=== PATIENT | female | born 1940 | race Caucasian/White ===

== ENCOUNTER 2017-12-31 13:28 | Observation (INO) ==
--- NOTE | 2017-12-31 13:34 | DR.DIZZY ---
HPI Time seen Time Seen by Provider: 12/31/17 13:34 HPI Comment HPI Comment: HISTORY BELOW. Complaint Chief Complaint Doctor Comments: PATIENT IN ED FROM THE [facility] BECAUSE THE STAFF NOTED SHE IS WEAK AND CONFUSE. HAS DEMENTIA BUT MORE CONFUSE. RIGHT ARM IS BRUISED AND SWOLLEN. HER SYMTOMS STARTED TODAY. Nurses Notes Reviewed Nurses Notes Review: Yes Source History Provided: Detention Mode of Arrival Mode of Arrival: Stretcher Timing Came on: Suddenly Duration Duration: Constant Duration: Hours Location of Weakness Weakness Location: Right and Arm Context Onset: At rest Stroke Symptoms: Weakness of limb Severity Severity: Abnormal activity level Modifying factors Worsens: Nothing Associated signs and symptoms Associated Signs and Symptoms: Weak and Other (AMS) PMH PMH Past Medical History: Alzheimers, Anxiety, Arthritis, CHF, Coronary Artery Disease, Dyslipidemia, Gout, Hypertension and Hypothyroidism Past Surgical History: Yes Surgical History: Unknown Family History Family Medical History: Cancer and Coronary Artery Disease Social History Do you use any recreational Drugs:: No ROS Review of Systems Constitutional: Weakness and Fatigue Eyes: No Symptoms Reported ENTM: No Symptoms Reported Respiratoy: Short of Breath Cardiovascular: No Symptoms Reported Gastrointestinal/Abdominal: Abdominal Pain Genitourinary: Hematuria; negative Bleeding Neurological: Weakness and Other (AMS.) Musculoskeletal: Rib(s) and Arm Integumentary: Bruises Hematologic/Lymphatic: Easy Bleeding and Easy Bruising Endocrine: negative Flushing Unable to Obtain Due To: Altered mental status PE Vital Signs Vitals: Temperature 98.9 F Pulse Rate [Right Brachial] 70 Pulse Rate 75 Respiratory Rate 18 Blood Pressure [Left Arm] 117/89 Blood Pressure [Right Arm] 119/58 Blood Pressure 131/60 O2 Sat by Pulse Oximetry 98 General Limitations: Altered Mental Status General Appearance: Other (CONFUSE.) Head Head Exam: Atraumatic Eyes Eye exam: PERRL Pupils: Regular, Round: Bilateral and Reactive: Bilateral Sclera/Conjunctival: Normal Inspection: Bilateral ENT ENT Exam: Normal External Ear Exam Neck Neck Exam: Trachea Midline Chest Chest Inspection: Symmetric Chest Wall Rise Respiratory Respiratory Exam: Bilateral: Rhonchi Cardiovascular Cardiovascular Exam: Regular Rate and Normal Rhythm Abdominal Exam Abdominal Exam: Normal Bowel Sounds and Soft Abdominal Tenderness: Diffuse and Moderate Rectal Rectal Exam: Deferred Extremeties Extremities Exam: Tenderness (SWELLING RT ARM WITH TENDERNESS,) Back Back Exam: negative Rashes Neurologic Neurological Exam: negative Oriented X3 and Motor Sensory Deficit Patient Oriented To: negative Person, Place and Time Cranial Nerve Exam: Gag reflex (XI): Normal Skin Skin Exam: Erythema MDM Differential Diagnosis Differential Diagnosis: Anemia, CVA, Dehydration, Dysrhythmia, Electrolyte disorder, Hypoglycemia and Myocardial infarction COURSE Treatment Treatment: SEE ORDERS. ROR Labs Reviewed Laboratory Results Reviewed?: Yes Result Diagrams: 01/02/18 04:29 01/02/18 04:29 Laboratory: 12/31/17 15:40 Blood Blood Culture - Final 12/31/17 15:28 Blood Blood Culture - Final WBC 8.0 X10^3/uL (3.6-10.0) 01/02/18 04:29 RBC 3.14 X10^6/uL (3.5-5.4) L 01/02/18 04:29 Hgb 10.1 g/dL (12.0-16.0) L 01/02/18 04:29 Hct 29.9 % (36.0-47.0) L 01/02/18 04:29 MCV 95.2 fL (80.0-100.0) 01/02/18 04:29 MCH 32.2 pg (27.0-34.0) 01/02/18 04:29 MCHC 33.9 g/dL (33.0-35.0) 01/02/18 04:29 RDW 14.1 % (11.6-16.5) 01/02/18 04:29 Plt Count 192 X10^3/uL (150.0-450.0) 01/02/18 04:29 MPV 7.4 fL (7.4-11.0) 01/02/18 04:29 Neut % (Auto) 55.1 % (42.0-75.0) 01/02/18 04:29 Lymph % (Auto) 35.1 % (21.0-51.0) 01/02/18 04:29 [place] % (Auto) 7.2 % (0.0-13.0) 01/02/18 04:29 Eos % (Auto) 2.1 % (0.9-2.9) 01/02/18 04:29 Baso % (Auto) 0.5 % (0.2-1.0) 01/02/18 04:29 Neut # (Auto) 4.4 x10^3/uL (2.2-4.8) 01/02/18 04:29 Lymph # (Auto) 2.8 X10^3/uL (1.3-2.9) 01/02/18 04:29 [place] # (Auto) 0.6 x10^3/uL (0.3-0.8) 01/02/18 04:29 Eos # (Auto) 0.2 x10^3/uL (0.0-0.2) 01/02/18 04:29 Baso # (Auto) 0.0 X10^3/uL (0.0-0.1) 01/02/18 04:29 Absolute Nucleated RBC 0.0 /100WBC 01/02/18 04:29 INR Target Range - 12/31/17 15:40 INR 1.07 (0.8-1.3) 12/31/17 15:40 APTT 29.1 SECONDS (22.9-36.5) 12/31/17 15:40 PTT Comment - 12/31/17 15:40 Sodium 145 mmol/L (136-145) 01/02/18 04:29 Corrected Sodium TNP 01/02/18 04:29 Potassium 4.9 mmol/L (3.5-5.1) 01/02/18 04:29 Chloride 110 mmol/L (98-107) H 01/02/18 04:29 Carbon Dioxide 24.4 mmol/L (21-32) 01/02/18 04:29 BUN 34 mg/dL (7-18) H 01/02/18 04:29 Creatinine 1.46 mg/dL (0.55-1.02) H 01/02/18 04:29 Est GFR (MDRD) Af Amer 45 (>60) L 01/02/18 04:29 Est GFR (MDRD) Non-Af 37 (>60) L 01/02/18 04:29 Glucose 99 mg/dL (65-99) 01/02/18 04:29 Lactic Acid 1.0 mmol/L (0.4-2.0) 12/31/17 15:28 Calcium 8.6 mg/dL (8.5-10.1) 01/02/18 04:29 Corrected Calcium 9.4 mg/dL (8.5-10.1) 01/02/18 04:29 Magnesium 1.9 mg/dL (1.7-2.9) 01/01/18 04:36 Total Bilirubin 0.50 mg/dL (0.2-1.0) 01/02/18 04:29 AST 11 Units/L (15-37) L 01/02/18 04:29 ALT 15 Units/L (12-78) 01/02/18 04:29 Alkaline Phosphatase 106 Units/L (46-116) 01/02/18 04:29 Creatine Kinase 24 Units/L (26-192) L 01/01/18 04:36 CK-MB (CK-2) < 1.0 ng/mL (0-4.0) 01/01/18 04:36 CK/CKMB % Calc 4.2 % (<4) 01/01/18 04:36 Troponin I < 0.02 ng/mL (0-1.5) 01/01/18 04:36 Total Protein 6.1 g/dL (6.4-8.2) L 01/02/18 04:29 Albumin 3.0 g/dL (3.4-5.0) L 01/02/18 04:29 Globulin 3.1 g/dL (2.5-4.5) 01/02/18 04:29 Albumin/Globulin Ratio 1.0 Ratio (1.1-2.1) L 01/02/18 04:29 Triglycerides 98 mg/dL (0-150) 01/01/18 04:36 Cholesterol 120 mg/dL (0-200) 01/01/18 04:36 LDL Cholesterol, Calc 60 mg/dL (0-100) 01/01/18 04:36 HDL Cholesterol 40 mg/dL (40-60) 01/01/18 04:36 Cholesterol/HDL Ratio 3.0 (0.0-5.0) 01/01/18 04:36 Amylase 53 Units/L (25-115) 12/31/17 15:28 Lipase 123 Units/L (73-393) 12/31/17 15:28 Specimen Type Random urine 12/31/17 20:45 Urine Color Yellow (YELLOW) 12/31/17 20:45 Urine Appearance Clear (CLEAR) 12/31/17 20:45 Urine pH 5.0 (5.0 - 8.0) 12/31/17 20:45 Ur Specific [place] 1.010 (1.000-1.030) 12/31/17 20:45 Urine Protein Negative (NEGATIVE) 12/31/17 20:45 Urine Glucose (UA) Negative (NEGATIVE) 12/31/17 20:45 Urine Ketones Negative (NEGATIVE) 12/31/17 20:45 Urine Occult Blood Negative (NEGATIVE) 12/31/17 20:45 Urine Nitrite Negative (NEGATIVE) 12/31/17 20:45 Urine Bilirubin Negative (NEGATIVE) 12/31/17 20:45 Urine Urobilinogen Normal (NORMAL) 12/31/17 20:45 Ur Leukocyte Esterase Negative (NEGATIVE) 12/31/17 20:45 Other Results Comments: ADMITTED. Instructions Instructions: Hypertension, [id number] Heart Failure Weakness Forms: Patient Portal
[2017-12-31 13:54] VITALS: BMI 28.4
--- NOTE | 2017-12-31 15:11 | CT ---
Indication: Mental status changes Exam: CT head without contrast. Technique: Routine transaxial images were obtained through the brain without contrast. Comparison: 12/18/2017. Findings: The ventricles are mildly enlarged with diffuse mild prominence of the cortical sulci which is unchanged. There is moderate periventricular low density bilaterally which is unchanged. 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 No intracranial hemorrhage or edema is seen. There is no extra-axial fluid collection or mass. The midline structures are unremarka ble. The bones are intact. Impression: Diffuse mild atrophy and moderate chronic microischemic changes throughout the deep white matter which is unchanged with no acute abnormality seen. Reported By:
--- NOTE | 2017-12-31 15:16 | CT ---
HISTORY: Abdominal tenderness, unresponsive Study: CT abdomen and pelvis without contrast Comparison: None Technique: Multiple axial images were obtained of the abdomen pelvis beginning at the lung bases and extending t o the level of the ischial tuberosities without the administration of IV contrast. Reformatted lloyd l and sagittal planes were produced as well. Findings: The lung bases are clear. Coronary calcifications are noted. The liver, pancreas, spleen, and bilateral adrenal glands are unremarkable. There is bilateral renal atrophy. The kidneys are otherwise unremarkable. No free fluid or extraluminal free air is identified within the abdomen or pelvis. The gallbladder is grossly unremarkable in its CT appearance. There is no pathologic lymphadenopathy or suspicious mesenteric stranding. Very mild scattered diverticulosis of the colon is noted without evidence of acute diverticulitis. There are no dilated loops of bowel or bowel wall thickening. There is no evidence of acute appendicitis. The urinary bladder is grossly unremarkable. The bony structures are intact. Multilevel thoracolumbar spondylosis is noted. There ap pears to be bilateral L5 spondylolysis with advanced facet arthropathy. IMPRESSION: 1. No acute intra-abdominal abnormality evident. 2. Uncomplicated very mild diverticulosis. 3. Bilateral L5 spondylolysis and advanced facet arthropathy. Reported By:
[2017-12-31 15:52] LABS: BASOPHILS % (AUTO) 0.5 % (0.2-1.0); EOSINOPHILS # (AUTO) 0.1 x10^3/uL (0.0-0.2); EOSINOPHILS % (AUTO) 1.7 % (0.9-2.9); HEMATOCRIT 32.6 % (36.0-47.0); LYMPHOCYTES # (AUTO) 1.8 X10^3/uL (1.3-2.9); LYMPHOCYTES % (AUTO) 26.1 % (21.0-51.0); MEAN CORPUSCULAR HEMOGLOBIN 31.8 pg (27.0-34.0); MEAN CORPUSCULAR HGB CONC 33.6 g/dL (33.0-35.0); MEAN CORPUSCULAR VOLUME 94.5 fL (80.0-100.0); MEAN PLATELET VOLUME 7.1 fL (7.4-11.0); MONOCYTES # (AUTO) 0.5 x10^3/uL (0.3-0.8); MONOCYTES % (AUTO) 7.3 % (0.0-13.0); NEUTROPHILS # (AUTO) 4.5 x10^3/uL (2.2-4.8); NEUTROPHILS % (AUTO) 64.4 % (42.0-75.0); PLATELET COUNT 204 X10^3/uL (150.0-450.0); RED BLOOD COUNT 3.45 X10^6/uL (3.5-5.4); RED CELL DISTRIBUTION WIDTH 14.1 % (11.6-16.5); WHITE BLOOD COUNT 6.9 X10^3/uL (3.6-10.0)
[2017-12-31 16:15] LABS: BLOOD UREA NITROGEN 26 mg/dL (7-18); CHLORIDE 106 mmol/L (98-107); CREATININE 1.19 mg/dL (0.55-1.02); SODIUM 141 mmol/L (136-145); TROPONIN I < 0.02 ng/mL (0-1.5); eGFR NON BLACK RACES 47 (>60)
[2017-12-31 16:18] LABS: ALANINE AMINOTRANSFERASE 18 Units/L (12-78); ALBUMIN 3.5 g/dL (3.4-5.0); ALKALINE PHOSPHATASE 120 Units/L (46-116); AMYLASE 53 Units/L (25-115); ASPARTATE AMINO TRANSFERASE 12 Units/L (15-37); CKMB % 3.7 % (<4); CREATINE KINASE 27 Units/L (26-192); CREATINE KINASE MB < 1.0 ng/mL (0-4.0); LIPASE 123 Units/L (73-393); TOTAL PROTEIN 6.9 g/dL (6.4-8.2)
[2017-12-31 20:55] LABS: BILIRUBIN,URINE NEGATIVE (NEGATIVE); BLOOD/HEMOGLOBIN,URINE NEGATIVE (NEGATIVE); GLUCOSE, URINE NEGATIVE (NEGATIVE); KETONES,URINE NEGATIVE (NEGATIVE); LEUKOCYTE ESTERASE ,URINE NEGATIVE (NEGATIVE); NITRITES,URINE NEGATIVE (NEGATIVE); PROTEIN,URINE NEGATIVE (NEGATIVE); UROBILINOGEN,URINE NORMAL (NORMAL)
[2017-12-31 20:57] LABS: APPEARANCE,URINE CLEAR (CLEAR); COLOR,URINE YELLOW (YELLOW)
[2017-12-31] MEDS: NS 1000 ML 1,000 ML IV SCH (23:11)
[2017-12-31] MEDS: XANAX PO PRN (23:48)
[2018-01-01 00:07] LABS: CKMB % 3.5 % (<4); CREATINE KINASE 29 Units/L (26-192); CREATINE KINASE MB < 1.0 ng/mL (0-4.0); TROPONIN I < 0.02 ng/mL (0-1.5)
[2018-01-01 05:07] LABS: BASOPHILS % (AUTO) 0.4 % (0.2-1.0); EOSINOPHILS # (AUTO) 0.2 x10^3/uL (0.0-0.2); EOSINOPHILS % (AUTO) 2.5 % (0.9-2.9); HEMATOCRIT 29.5 % (36.0-47.0); HEMOGLOBIN 9.9 g/dL (12.0-16.0); LYMPHOCYTES # (AUTO) 2.4 X10^3/uL (1.3-2.9); LYMPHOCYTES % (AUTO) 32.7 % (21.0-51.0); MEAN CORPUSCULAR HEMOGLOBIN 31.3 pg (27.0-34.0); MEAN CORPUSCULAR HGB CONC 33.7 g/dL (33.0-35.0); MEAN CORPUSCULAR VOLUME 92.8 fL (80.0-100.0); MEAN PLATELET VOLUME 7.2 fL (7.4-11.0); MONOCYTES # (AUTO) 0.5 x10^3/uL (0.3-0.8); MONOCYTES % (AUTO) 7.1 % (0.0-13.0); NEUTROPHILS # (AUTO) 4.1 x10^3/uL (2.2-4.8); NEUTROPHILS % (AUTO) 57.3 % (42.0-75.0); PLATELET COUNT 192 X10^3/uL (150.0-450.0); RED BLOOD COUNT 3.17 X10^6/uL (3.5-5.4); RED CELL DISTRIBUTION WIDTH 14.1 % (11.6-16.5); WHITE BLOOD COUNT 7.2 X10^3/uL (3.6-10.0)
[2018-01-01 05:08] LABS: ALANINE AMINOTRANSFERASE 16 Units/L (12-78); ALBUMIN 3.1 g/dL (3.4-5.0); ALKALINE PHOSPHATASE 108 Units/L (46-116); ASPARTATE AMINO TRANSFERASE 9 Units/L (15-37); BLOOD UREA NITROGEN 26 mg/dL (7-18); CALCIUM 8.8 mg/dL (8.5-10.1); CARBON DIOXIDE 27.2 mmol/L (21-32); CHLORIDE 107 mmol/L (98-107); CHOLESTEROL 120 mg/dL (0-200); COR CA(FOR HYPOALB) 9.5 mg/dL (8.5-10.1); CREATININE 1.27 mg/dL (0.55-1.02); HDL CHOLESTEROL 40 mg/dL (40-60); MAGNESIUM 1.9 mg/dL (1.7-2.9); SODIUM 142 mmol/L (136-145); TOTAL PROTEIN 6.3 g/dL (6.4-8.2); TRIGLYCERIDES 98 mg/dL (0-150); eGFR NON BLACK RACES 43 (>60)
[2018-01-01 05:22] LABS: CKMB % 4.2 % (<4); CREATINE KINASE 24 Units/L (26-192); CREATINE KINASE MB < 1.0 ng/mL (0-4.0); TROPONIN I < 0.02 ng/mL (0-1.5)
[2018-01-01] MEDS ORDERED: [UNRECOGNIZED DRUG - REMARK] PO SCH (09:00)
[2018-01-01] MEDS ORDERED: MIRALAX POWDER (255 GRAMS BTL) PO SCH (09:00)
[2018-01-01] MEDS ORDERED: MULTIVITAMIN MIN IRON FA VIT K PO SCH (09:00)
[2018-01-01] MEDS ORDERED: [UNRECOGNIZED DRUG - OTHER] PO SCH (09:00)
--- NOTE | 2018-01-01 11:34 | DR.H&P ---
H&P - History & Physical for Day of: H&P Date: 01/01/18 - Chief Complaint Chief Complaint: WEAKNESS, ALTERED MENTAL STATUS - History of Present Illness History of Present Illness: IS A 77 YEAR OLD PATIENT OF OURS WHO IS A RESIDENT OF [facility]. SHE PRESENTED TO THE EMERGENCY ROOM WITH STAFF REPORTING THAT PATIENT ISNT ACTING LIKE HERSELF. PATIENT DOES HAVE A PAST MEDICAL HISTORY OF DEMENTIA, HOWEVER, STAFF REPORTS THAT SHE HAS BEEN MORE CONFUSED, WEAK, AND MORE DROWSY THAN USUAL. ON EXAMINATION, PATIENT NOTED WITH TENDERNESS ON PALPATION TO THE LOWER ABDOMEN. ON ARRIVAL, VITALS WERE 99.0-75-18-98%RA-131/60. LABS WERE OBTAINED. ABNORMAL LAB VALUES INCLUDE THE FOLLOWING: RBC 3.45, HGB 11.0, HCT 32.6, BUN 26, CREATININE 1.19, GLUCOSE 101, AST 12, ALK PHOS 120. CARDIAC ENZYMES WITHIN NORMAL LIMITS. AN ABDOMEN/PELVIS CT WAS OBTAINED AND REVEALED: No acute intra-abdominal abnormality evident.Uncomplicated very mild diverticulosis. Bilateral L5 spondylolysis and advanced facet arthropathy. A BRAIN CT WAS OBTAINED AND REVEALED: Diffuse mild atrophy and moderate chronic microischemic changes throughout the deep white matter which is unchanged with no acute abnormality seen. EKG REVEALED: JUNCTIONAL RHYTHM, LEFT BUNDLE BRANCH BLOCK, HR 63. PATIENT WAS ADMITTED TO THE HOSPITAL FOR FURTHER EVALUATION AND TREATMENT OF DEHYDRATION, GENERALIZED WEAKNESS, AND ALTERED MENTAL STATUS. SHE WAS STARTED ON NORMAL SALINE AND HOME MEDICATIONS WERE RESUMED WITH THE EXCEPTION OF THE RISPERDAL AND MELATONIN. WE PLAN TO FOLLOW UP WITH AM LABS AND CONTINUE TO MONITOR PATIENT. - Past Medical History Past Medical History: Coronary Artery Disease, Hypertension, Dyslipidemia, Alzheimers, Anxiety, Hypothyroidism, Arthritis, Gout, CHF - Past Surgical History Surgical History: Unknown - Family History Family Medical History: Cancer, Coronary Artery Disease - Social History Does patient currently use any type of tobacco product: No Have you used tobacco products in the last 12 months: No Type of Tobacco Use: None Does any household member use tobacco: No Alcohol Use: None Drug Use: None - Medications Home Medications: fluoxetine [From Prozac] Allergy (Verified 09/08/17 07:59) CONTINUE taking the following medications escitalopram oxalate [Lexapro] 10 mg PO DAILYHS 12/31/17 [History] fesoterodine [Toviaz] 4 mg PO DAILY 12/31/17 [History] hydrocodone-acetaminophen [Lorcet (hydrocodone)] 5 - 325 mg PO PRN PRN 12/31/17 [History] levocetirizine [Allergy Relief (levocetirizin)] 5 mg PO DAILY 12/31/17 [History] levothyroxine [Synthroid] 125 mcg/day PO DAILYAC 12/31/17 [History] lisinopril-hydrochlorothiazide 1 mg PO DAILY 12/31/17 [History] meclizine [Medi-Meclizine] 25 mg DAILY 12/31/17 [History] melatonin 10 mg PO HS 12/31/17 [History] memantine-donepezil [Namzaric] 10 mg PO DAILY 12/31/17 [History] jhenymyhnhez-kke-dcat-FA-vit K [Multi-Day Plus Minerals] 1 tab PO DAILY 12/31/17 [History] naproxen 500 mg PO BID 12/31/17 [History] polyethylene glycol 3350 [Miralax] 17 g PO DAILY 12/31/17 [History] risperidone [Risperdal] 1 mg PO DAILYHS 12/31/17 [History] simvastatin [Zocor] 20 mg PO DAILYHS 12/31/17 [History] trazodone 50 mg PO DAILYHS 12/31/17 [History] - Review of Systems Constitutional: Weakness, Other (CONFUSION ) Eyes: No Symptoms Reported ENT: No Symptoms Reported Respiratory: No Symptoms Reported Cardiovascular: No Symptoms Reported Gastrointestinal: Abdominal Pain Genitourinary: No Symptoms Reported Musculoskeletal: No Symptoms Reported Skin: No Symptoms Reported Neurological: Weakness - Physical Exam Vital Signs: Temperature 98.6 F Pulse Rate [Right Brachial] 60 Pulse Rate 75 Respiratory Rate 20 Blood Pressure [Right Arm] 115/53 Blood Pressure 131/60 O2 Sat by Pulse Oximetry 95 Oriented: Not Oriented Eyes: Normal Ear: Normal Nose: Normal Throat: Normal Respiratory: Diminished Throughout Cardiovascular: Normal. negative: S3, S4, Murmur : Normal Auscultation: Bowel Sounds: Normal Palpation: Normal Tenderness: Suprapubic, Mild. negative: Rebound, Guarding, Rigidity Skin: Normal Musculoskeletal: Normal Psychiatric: Other (CONFUSION ) Mood Description: Calm Affect: Normal Speech Pattern: Unclear - Assessment/Plan (1) Dehydration Status: Acute Plan: ADMIT, NORMAL SALINE, CONTINUE TO MONITOR (2) Altered mental status Qualifiers: Altered mental status type: transient alteration of awareness Qualified Code(s): R40.4 - Transient alteration of awareness Status: Acute Plan: CONTINUE TO MONITOR (3) Generalized weakness Status: Acute Plan: CONTINUE TO MONITOR - Allergies Allergies/Adverse Reactions: Allergies Allergy/AdvReac Type Severity Reaction Status Date / Time [facility] Allergy Verified 09/08/17 07:59
[2018-01-01] MEDS: ANTIVERT TAB 25 MG PO SCH (13:01)
[2018-01-01] MEDS: TAB-A-VITE PO SCH (13:01)
[2018-01-01] MEDS: NAPROSYN PO SCH ×2 (13:01→20:32)
[2018-01-01] MEDS: FESOTERODINE 4 MG PO SCH (13:02)
[2018-01-01] MEDS: MEMANTINE DONEPEZIL PO SCH (13:02)
[2018-01-01] MEDS: NS 1000 ML 1,000 ML IV SCH ×2 (13:02→22:43)
--- NOTE | 2018-01-01 15:57 | PCM.PROG ---
Progress Note - Progress Note for Day of Date of Exam: 01/01/18 - Subjective Subjective: WAS ADMITTED FOR DEHYDRATION, GENERALIZED WEAKNESS, AND ALTERED MENTAL STATUS LAST NIGHT. TODAY, SHE IS LYING IN BED WITH EYES CLOSED ON MORNING ROUNDS. SHE IS DIFFICULT TO AROUSE THIS MORNING. SHE DOES MOAN TO PAINFUL STIMULI. PATIENTS SISTER REPORTS THAT SHE WAS NOTED WITH INCREASED AGITATION AFTER ADMISSION. SHE REPORTS THAT SHE TRIED TO GIVE PATIENT SOMETHING TO DRINK THIS MORNING AND THAT SHE HAD A DIFFICULT TIME TAKING IN FLUIDS WITHOUT COUGHING AND APPEARING TO GET CHOKED. HER VITALS TODAY ARE 98.6-60-20-95%-115/53. LABS WERE OBTAINED. ABNORMAL LAB VALUES INCLUDE THE FOLLOWING: RBC 3.17, HGB 9.9, HCT 29.5, BUN 26, CREATININE 1.27, AST 9, CREATINE KINASE 24, TOTAL PROTEIN 6.3, ALBUMIN 3.1. CARDIAC ENZYMES HAVE BEEN WITHIN NORMAL LIMITS. NO CHANGES NOTED TO EKG. TODAY, WE WILL HAVE SPEECH THERAPY EVALUATE PATIENT. OTHERWISE, WE WILL CONTINUE WITH IV FLUIDS AND CURRENT PLAN OF CARE. WE PLAN TO FOLLOW UP WITH AM LABS AND CONTINUE TO MONITOR PATIENT. - Past Medical Family Social History Past Med/Fam/Surg Hx: No changes since H&P Allergies: Allergies fluoxetine [From Prozac] Allergy (Verified 09/08/17 07:59) - Review of Systems ROS: No change since H&P - Vital Signs and I&O's Vital Signs: Temperature 98.4 F Pulse Rate [Right Brachial] 72 Pulse Rate 75 Respiratory Rate 20 Blood Pressure [Right Arm] 161/68 Blood Pressure 131/60 O2 Sat by Pulse Oximetry 97 Intake and Output: Intake & Output 12/30/17 12/31/17 01/01/18 01/02/18 11:59 11:59 11:59 11:59 Intake Total 270 / 270 120 / 120 Output Total 300 / 300 Balance 270 / 270 -180 / -180 - Physical Exam Oriented: Not Oriented Eyes: Normal Ear: Normal Nose: Normal Throat: Normal Cardiovascular: Normal. negative: S3, S4, Murmur : Normal Auscultation: Bowel Sounds: Normal Palpation: Normal Tenderness: Suprapubic, Mild. negative: Rebound, Guarding, Rigidity Skin: Normal Musculoskeletal: Normal Psychiatric: Other (CONFUSION ) Mood Description: Calm Affect: Normal Speech Pattern: Unclear - Laboratory and Diagnostics Result Diagrams: 01/01/18 04:36 01/01/18 04:36 Labs: Laboratory WBC 7.2 X10^3/uL (3.6-10.0) 01/01/18 04:36 RBC 3.17 X10^6/uL (3.5-5.4) L 01/01/18 04:36 Hgb 9.9 g/dL (12.0-16.0) L 01/01/18 04:36 Hct 29.5 % (36.0-47.0) L 01/01/18 04:36 MCV 92.8 fL (80.0-100.0) 01/01/18 04:36 MCH 31.3 pg (27.0-34.0) 01/01/18 04:36 MCHC 33.7 g/dL (33.0-35.0) 01/01/18 04:36 RDW 14.1 % (11.6-16.5) 01/01/18 04:36 Plt Count 192 X10^3/uL (150.0-450.0) 01/01/18 04:36 MPV 7.2 fL (7.4-11.0) L 01/01/18 04:36 Neut % (Auto) 57.3 % (42.0-75.0) 01/01/18 04:36 Lymph % (Auto) 32.7 % (21.0-51.0) 01/01/18 04:36 [place] % (Auto) 7.1 % (0.0-13.0) 01/01/18 04:36 Eos % (Auto) 2.5 % (0.9-2.9) 01/01/18 04:36 Baso % (Auto) 0.4 % (0.2-1.0) 01/01/18 04:36 Neut # (Auto) 4.1 x10^3/uL (2.2-4.8) 01/01/18 04:36 Lymph # (Auto) 2.4 X10^3/uL (1.3-2.9) 01/01/18 04:36 [place] # (Auto) 0.5 x10^3/uL (0.3-0.8) 01/01/18 04:36 Eos # (Auto) 0.2 x10^3/uL (0.0-0.2) 01/01/18 04:36 Baso # (Auto) 0.0 X10^3/uL (0.0-0.1) 01/01/18 04:36 Absolute Nucleated RBC 0.0 /100WBC 01/01/18 04:36 INR Target Range - 12/31/17 15:40 INR 1.07 (0.8-1.3) 12/31/17 15:40 APTT 29.1 SECONDS (22.9-36.5) 12/31/17 15:40 PTT Comment - 12/31/17 15:40 Sodium 142 mmol/L (136-145) 01/01/18 04:36 Corrected Sodium TNP 01/01/18 04:36 Potassium 4.1 mmol/L (3.5-5.1) 01/01/18 04:36 Chloride 107 mmol/L (98-107) 01/01/18 04:36 Carbon Dioxide 27.2 mmol/L (21-32) 01/01/18 04:36 BUN 26 mg/dL (7-18) H 01/01/18 04:36 Creatinine 1.27 mg/dL (0.55-1.02) H 01/01/18 04:36 Est GFR (MDRD) Af Amer 52 (>60) L 01/01/18 04:36 Est GFR (MDRD) Non-Af 43 (>60) L 01/01/18 04:36 Glucose 99 mg/dL (65-99) 01/01/18 04:36 Lactic Acid 1.0 mmol/L (0.4-2.0) 12/31/17 15:28 Calcium 8.8 mg/dL (8.5-10.1) 01/01/18 04:36 Corrected Calcium 9.5 mg/dL (8.5-10.1) 01/01/18 04:36 Magnesium 1.9 mg/dL (1.7-2.9) 01/01/18 04:36 Total Bilirubin 0.40 mg/dL (0.2-1.0) 01/01/18 04:36 AST 9 Units/L (15-37) L 01/01/18 04:36 ALT 16 Units/L (12-78) 01/01/18 04:36 Alkaline Phosphatase 108 Units/L (46-116) 01/01/18 04:36 Creatine Kinase 24 Units/L (26-192) L 01/01/18 04:36 CK-MB (CK-2) < 1.0 ng/mL (0-4.0) 01/01/18 04:36 CK/CKMB % Calc 4.2 % (<4) 01/01/18 04:36 Troponin I < 0.02 ng/mL (0-1.5) 01/01/18 04:36 Total Protein 6.3 g/dL (6.4-8.2) L 01/01/18 04:36 Albumin 3.1 g/dL (3.4-5.0) L 01/01/18 04:36 Globulin 3.2 g/dL (2.5-4.5) 01/01/18 04:36 Albumin/Globulin Ratio 1.0 Ratio (1.1-2.1) L 01/01/18 04:36 Triglycerides 98 mg/dL (0-150) 01/01/18 04:36 Cholesterol 120 mg/dL (0-200) 01/01/18 04:36 LDL Cholesterol, Calc 60 mg/dL (0-100) 01/01/18 04:36 HDL Cholesterol 40 mg/dL (40-60) 01/01/18 04:36 Cholesterol/HDL Ratio 3.0 (0.0-5.0) 01/01/18 04:36 Amylase 53 Units/L (25-115) 12/31/17 15:28 Lipase 123 Units/L (73-393) 12/31/17 15:28 Specimen Type Random urine 12/31/17 20:45 Urine Color Yellow (YELLOW) 12/31/17 20:45 Urine Appearance Clear (CLEAR) 12/31/17 20:45 Urine pH 5.0 (5.0 - 8.0) 12/31/17 20:45 Ur Specific [place] 1.010 (1.000-1.030) 12/31/17 20:45 Urine Protein Negative (NEGATIVE) 12/31/17 20:45 Urine Glucose (UA) Negative (NEGATIVE) 12/31/17 20:45 Urine Ketones Negative (NEGATIVE) 12/31/17 20:45 Urine Occult Blood Negative (NEGATIVE) 12/31/17 20:45 Urine Nitrite Negative (NEGATIVE) 12/31/17 20:45 Urine Bilirubin Negative (NEGATIVE) 12/31/17 20:45 Urine Urobilinogen Normal (NORMAL) 12/31/17 20:45 Ur Leukocyte Esterase Negative (NEGATIVE) 12/31/17 20:45 - Plan (1) Dehydration Status: Acute Plan: NORMAL SALINE @ 75ML/HR, CONTINUE TO MONITOR (2) Altered mental status Status: Acute Qualifiers: Altered mental status type: transient alteration of awareness Qualified Code(s): R40.4 - Transient alteration of awareness Plan: CONTINUE TO MONITOR (3) Generalized weakness Status: Acute Plan: CONTINUE TO MONITOR
[2018-01-01] MEDS: XANAX PO PRN (16:21)
[2018-01-01] MEDS ORDERED: SYNTHROID 125 mcg TAB PO SCH (16:30)
[2018-01-01] MEDS ORDERED: LEXAPRO ONE (19:55)
[2018-01-01] MEDS ORDERED: DESYREL PO SCH (21:00)
[2018-01-01] MEDS ORDERED: PATIENT'S HOME MEDICATION (Melatonin [Melatonin] 10 MG) PO SCH (21:00)
[2018-01-01] MEDS ORDERED: ZOCOR TAB 20 MG PO SCH (21:00)
[2018-01-01] MEDS ORDERED: LEXAPRO PO SCH (21:00)
[2018-01-01] MEDS ORDERED: RisperDAL TAB 1 MG PO SCH (21:00)
[2018-01-01] MEDS ORDERED: MIRALAX POWDER (1 DOSE 17 G) PO SCH (21:00)
[2018-01-01] MEDS: NYSTATIN POWDER TOP SCH (22:43)
[2018-01-02] MEDS: NS 1000 ML 1,000 ML IV SCH ×2 (01:16→12:00)
[2018-01-02 05:16] LABS: BASOPHILS % (AUTO) 0.5 % (0.2-1.0); EOSINOPHILS # (AUTO) 0.2 x10^3/uL (0.0-0.2); EOSINOPHILS % (AUTO) 2.1 % (0.9-2.9); HEMATOCRIT 29.9 % (36.0-47.0); HEMOGLOBIN 10.1 g/dL (12.0-16.0); LYMPHOCYTES # (AUTO) 2.8 X10^3/uL (1.3-2.9); LYMPHOCYTES % (AUTO) 35.1 % (21.0-51.0); MEAN CORPUSCULAR HEMOGLOBIN 32.2 pg (27.0-34.0); MEAN CORPUSCULAR HGB CONC 33.9 g/dL (33.0-35.0); MEAN CORPUSCULAR VOLUME 95.2 fL (80.0-100.0); MEAN PLATELET VOLUME 7.4 fL (7.4-11.0); MONOCYTES # (AUTO) 0.6 x10^3/uL (0.3-0.8); MONOCYTES % (AUTO) 7.2 % (0.0-13.0); NEUTROPHILS # (AUTO) 4.4 x10^3/uL (2.2-4.8); NEUTROPHILS % (AUTO) 55.1 % (42.0-75.0); PLATELET COUNT 192 X10^3/uL (150.0-450.0); RED BLOOD COUNT 3.14 X10^6/uL (3.5-5.4); RED CELL DISTRIBUTION WIDTH 14.1 % (11.6-16.5)
[2018-01-02 05:23] LABS: ALANINE AMINOTRANSFERASE 15 Units/L (12-78); ALKALINE PHOSPHATASE 106 Units/L (46-116); ASPARTATE AMINO TRANSFERASE 11 Units/L (15-37); BLOOD UREA NITROGEN 34 mg/dL (7-18); CALCIUM 8.6 mg/dL (8.5-10.1); CARBON DIOXIDE 24.4 mmol/L (21-32); CHLORIDE 110 mmol/L (98-107); COR CA(FOR HYPOALB) 9.4 mg/dL (8.5-10.1); CREATININE 1.46 mg/dL (0.55-1.02); SODIUM 145 mmol/L (136-145); TOTAL PROTEIN 6.1 g/dL (6.4-8.2); eGFR NON BLACK RACES 37 (>60)
[2018-01-02] MEDS: ANTIVERT TAB 25 MG PO SCH (08:43)
[2018-01-02] MEDS: NAPROSYN PO SCH (08:43)
[2018-01-02] MEDS: TAB-A-VITE PO SCH (08:44)
[2018-01-02] MEDS: NYSTATIN POWDER TOP SCH (08:50)
[2018-01-02] MEDS: FESOTERODINE 4 MG PO SCH (08:54)
[2018-01-02] MEDS: MEMANTINE DONEPEZIL PO SCH (08:55)
[2018-01-02] MEDS ORDERED: ZyrTEC TAB 10 MG PO SCH (09:00)
[2018-01-02] MEDS ORDERED: XANAX PO PRN (09:59)
[2018-01-02] MEDS ORDERED: PROTONIX TAB 40 MG PO SCH (10:00)
[2018-01-02] MEDS ORDERED: PEPCID TAB 20 MG PO SCH (10:00)
[2018-01-02] MEDS: BENTYL CAP 10 MG PO SCH ×2 (10:51→13:47)
[2018-01-02] MEDS: LEVSIN/MAALOX/LIDOC VISC PO SCH ×2 (10:52→13:47)
--- NOTE | 2018-01-02 11:36 | RAD ---
HISTORY: Fall several days ago with pain Study: 2 views of the right forearm. Comparison: None Findings: No acute cortical disruption or dislocation can be identified. The radius and ulna are unremarkable. No significant soft tissue swelling or injury can be seen. IMPRESSION: 1. No acute abnormality of the right forearm. Reported By:
--- NOTE | 2018-01-02 11:40 | RAD ---
HISTORY: Fall with right arm pain Study: 2 views of the right humerus. Comparison: None Findings: No acute cortical disruption or dislocation can be identified. The humeral head appears unremarkable . No significant soft tissue swelling or injury can be seen. IMPRESSION: 1. No acute abnormality of the right humerus. Reported By:
[2018-01-02 13:19] VITALS: BP 117/89
--- NOTE | 2018-02-19 20:37 | DR.CARTERD ---
- Discharge Summary for: Discharge Summary for Date of:: 01/02/18 - Admission Date Date of Admission: 12/31/17 - Admission Diagnoses Admission Diagnosis: (1) Altered mental status (2) Dehydration (3) Generalized weakness - Discharge Date Discharge Date: 01/02/18 - Discharge Diagnoses Discharge Diagnosis: (1) Altered mental status (2) Dehydration (3) Generalized weakness - Hospital Course Hospital Course: DAY ONE, IS A 77 YEAR OLD PATIENT OF OURS WHO IS A RESIDENT OF [facility]. SHE PRESENTED TO THE EMERGENCY ROOM WITH STAFF REPORTING THAT PATIENT ISNT ACTING LIKE HERSELF. PATIENT DOES HAVE A PAST MEDICAL HISTORY OF DEMENTIA, HOWEVER, STAFF REPORTED THAT SHE HAD BEEN MORE CONFUSED, WEAK, AND MORE DROWSY THAN USUAL. ON EXAMINATION, PATIENT NOTED WITH TENDERNESS ON PALPATION TO THE LOWER ABDOMEN. ON ARRIVAL, VITALS WERE 99.0-75-18-98%RA- 131/60. LABS WERE OBTAINED. ABNORMAL LAB VALUES INCLUDED THE FOLLOWING: RBC 3.45, HGB 11.0, HCT 32.6, BUN 26, CREATININE 1.19, GLUCOSE 101, AST 12, ALK PHOS 120. CARDIAC ENZYMES WITHIN NORMAL LIMITS. AN ABDOMEN/PELVIS CT WAS OBTAINED AND REVEALED: No acute intra-abdominal abnormality evident.Uncomplicated very mild diverticulosis. Bilateral L5 spondylolysis and advanced facet arthropathy. A BRAIN CT WAS OBTAINED AND REVEALED: Diffuse mild atrophy and moderate chronic microischemic changes throughout the deep white matter which is unchanged with no acute abnormality seen. EKG REVEALED: JUNCTIONAL RHYTHM, LEFT BUNDLE BRANCH BLOCK, HR 63. PATIENT WAS ADMITTED TO THE HOSPITAL FOR FURTHER EVALUATION AND TREATMENT OF DEHYDRATION, GENERALIZED WEAKNESS, AND ALTERED MENTAL STATUS. SHE WAS STARTED ON NORMAL SALINE AND HOME MEDICATIONS WERE RESUMED WITH THE EXCEPTION OF THE RISPERDAL AND MELATONIN. WE FOLLOWED UP WITH AM LABS AND CONTINUED TO MONITOR PATIENT. DAY TWO, SHE WAS LYING IN BED WITH EYES CLOSED ON MORNING ROUNDS. SHE WAS DIFFICULT TO AROUSE THIS MORNING. SHE DID MOAN TO PAINFUL STIMULI. PATIENTS SISTER REPORTS THAT SHE WAS NOTED WITH INCREASED AGITATION AFTER ADMISSION. SHE REPORTED THAT SHE TRIED TO GIVE PATIENT SOMETHING TO DRINK THIS MORNING AND THAT SHE HAD A DIFFICULT TIME TAKING IN FLUIDS WITHOUT COUGHING AND APPEARING TO GET CHOKED. HER VITALS TODAY WERE 98.6-60- 20-95%-115/53. LABS WERE OBTAINED. ABNORMAL LAB VALUES INCLUDED THE FOLLOWING: RBC 3.17, HGB 9.9, HCT 29.5, BUN 26, CREATININE 1.27, AST 9, CREATINE KINASE 24, TOTAL PROTEIN 6.3, ALBUMIN 3.1. CARDIAC ENZYMES WERE WITHIN NORMAL LIMITS. NO CHANGES NOTED TO EKG. WE HAD SPEECH THERAPY EVALUATE PATIENT. WE CONTINUED WITH IV FLUIDS AND CURRENT PLAN OF CARE. WE FOLLOWED UP WITH AM LABS AND CONTINUED TO MONITOR PATIENT. DAY THREE, PATIENT ATE BREAKFAST WITH ONLY ONE EPISODE OF DIFFICULTY WITH SWALLOWING NO OTHER ISSUES NOTED. PATIENT DRANK THIN LIQUIDS VIA STRAW WITH NO DIFFICULTIES. FAMILY WAS IN ROOM WITH PATIENT. CONFUSION HAS IMPROVED AND VITALS ARE STABLE. BLOOD CULTURES SHOW NO GROWTH AT THIS TIME. LABS ARE WITHIN PATIENT'S NORMAL LIMITS. WE PLANNED FOR DISCHARGE. INSTRUCTIONS FOR MEDICATION AND FOLLOW UP DISCUSSED WITH PATIENT AND FAMILY, BOTH VOICED UNDERSTANDING. CORRECTION STAFF INFORMED OF INSTRUCTIONS FOR MEDICATIONS AND FOLLOW UP. THEY ALSO VOICED UNDERSTANDING. PATIENT DISCHARGED BACK TO [facility] IN STABLE CONDITION WITH STAFF. - Discharge Medications Discharge Medications: Home Medication List escitalopram oxalate [Lexapro] 10 mg PO DAILYHS 12/31/17 [History] fesoterodine [Toviaz] 4 mg PO DAILY 12/31/17 [History] hydrocodone-acetaminophen [Lorcet (hydrocodone)] 5 - 325 mg PO PRN PRN 12/31/17 [History] levocetirizine [Allergy Relief (levocetirizin)] 5 mg PO DAILY 12/31/17 [History] levothyroxine [Synthroid] 125 mcg/day PO DAILYAC 12/31/17 [History] lisinopril-hydrochlorothiazide 1 mg PO DAILY 12/31/17 [History] meclizine [Medi-Meclizine] 25 mg DAILY 12/31/17 [History] melatonin 10 mg PO HS 12/31/17 [History] memantine-donepezil [Namzaric] 10 mg PO DAILY 12/31/17 [History] lppuxcdymlze-lra-cjgo-FA-vit K [Multi-Day Plus Minerals] 1 tab PO DAILY 12/31/17 [History] naproxen 500 mg PO BID 12/31/17 [History] polyethylene glycol 3350 [Miralax] 17 g PO DAILY 12/31/17 [History] risperidone [Risperdal] 1 mg PO DAILYHS 12/31/17 [History] simvastatin [Zocor] 20 mg PO DAILYHS 12/31/17 [History] trazodone 50 mg PO DAILYHS 12/31/17 [History] alprazolam 0.25 mg PO TID PRN #90 tab 01/02/18 [Rx] lisinopril 20 mg PO QDAY #30 tab 01/02/18 [Rx] Prescriptions: alprazolam Itz Sullivan lisinopril Itz Sullivan - Discharge Disposition Discharge Disposition: WE WILL FOLLOW UP WITH PATIENT AT [facility] IN ONE WEEK.
== END 2018-01-02 14:35 ==
LOC: MED/SURG 13:28 → ER 13:28 → MED/SURG 22:45
PROVIDERS: ADMIT Obstetrics & Gynecology Obstetrics; ATTEND Internal Medicine
DX: E86.0 Dehydration; E03.8 Other specified hypothyroidism; K52.89 Other specified noninfective gastroenteritis and colitis; R13.11 Dysphagia, oral phase; R40.4 Transient alteration of awareness; R42 Dizziness and giddiness; R26.2 Difficulty in walking, not elsewhere classified; I10 Essential (primary) hypertension; I25.10 Atherosclerotic heart disease of native coronary artery without angina pectoris; R53.1 Weakness; R10.84 Generalized abdominal pain; R94.31 Abnormal electrocardiogram [ECG] [EKG]; E78.2 Mixed hyperlipidemia; Z79.899 Other long term (current) drug therapy
CPT/HCPCS: 36415; 70450; 73060; 73090; 74176; 80053; 80061; 81003; 82150; 82550; 82553; 83605; 83690; 83735; 84484; 85025; 85610; 85730; 87040; 92526; 92610; 93005; 94760; 96365; 96367; 97162; 97165; 99283; 99284; A4216; A4222; G0378; J7030

== ENCOUNTER 2018-04-25 11:10 | Observation (INO) ==
[2018-04-25 12:01] LABS: BILIRUBIN,URINE NEGATIVE (NEGATIVE); BLOOD/HEMOGLOBIN,URINE 1+ (NEGATIVE); GLUCOSE, URINE NEGATIVE (NEGATIVE); KETONES,URINE NEGATIVE (NEGATIVE); LEUKOCYTE ESTERASE ,URINE 1+ (NEGATIVE); NITRITES,URINE NEGATIVE (NEGATIVE); PROTEIN,URINE 1+ (NEGATIVE); UROBILINOGEN,URINE NORMAL (NORMAL)
--- NOTE | 2018-04-25 12:09 | RAD ---
HISTORY: Altered mental status. Cough. Facial drooping Study: AP portable chest Comparison: 02/04/2018 Findings: Mild chronic interstitial scarring is noted. Minimal atelectatic change/infiltrate is noted in the right infrahilar region. Mild cardiomegaly is noted. Moderate osteopenia is noted. IMPRESSION: 1. Mild cardiomegaly without evidence of failure. 2. There are findings suggesting minimal atelectatic change/infiltrate in the right infrahilar region. Reported By:
[2018-04-25 12:10] LABS: APPEARANCE,URINE SLIGHTLY HAZY (CLEAR); COLOR,URINE YELLOW (YELLOW)
[2018-04-25 12:11] LABS: AMORPHOUS SEDIMENT,UR TRACE /HPF (NEGATIVE); BACTERIA,URINE TRACE /HPF (NEGATIVE); RBC,URINE 0-2 /HPF (NONE SEEN); SQUAMOUS EPITHELIAL CELL,UR MODERATE /HPF (NEGATIVE)
[2018-04-25 12:23] LABS: BASOPHILS % (AUTO) 0.2 % (0.2-1.0); EOSINOPHILS # (AUTO) 0.2 x10^3/uL (0.0-0.2); HEMATOCRIT 27.8 % (36.0-47.0); HEMOGLOBIN 9.2 g/dL (12.0-16.0); LYMPHOCYTES # (AUTO) 1.3 X10^3/uL (1.3-2.9); LYMPHOCYTES % (AUTO) 11.4 % (21.0-51.0); MEAN CORPUSCULAR HGB CONC 33.1 g/dL (33.0-35.0); MEAN CORPUSCULAR VOLUME 96.6 fL (80.0-100.0); MEAN PLATELET VOLUME 7.1 fL (7.4-11.0); MONOCYTES # (AUTO) 0.7 x10^3/uL (0.3-0.8); MONOCYTES % (AUTO) 5.7 % (0.0-13.0); NEUTROPHILS # (AUTO) 9.4 x10^3/uL (2.2-4.8); NEUTROPHILS % (AUTO) 80.7 % (42.0-75.0); PLATELET COUNT 226 X10^3/uL (150.0-450.0); RED BLOOD COUNT 2.88 X10^6/uL (3.5-5.4); RED CELL DISTRIBUTION WIDTH 14.2 % (11.6-16.5); WHITE BLOOD COUNT 11.7 X10^3/uL (3.6-10.0)
--- NOTE | 2018-04-25 12:27 | DR.AMS ---
HPI Time Seen Time Seen by Provider: 04/25/18 11:50 PCP Primary Care Physician: GISSEL MARIA Complaint Chief Complaint:: STAFF AT [facility] STATES PT HAS HAD AMS FOR 2 DAYS AND SHE HAS A COUGH AND SHE HAS SOME RIGHT FACIAL DROOPING AND WON'T SQUEEZE HANDS WHEN ASKED ,BR Self Treatment fo Chief Complaint: UPON ARRIVAL TO ER PT'S BS IS 108, PT IS ALERT AND SHE IS CONFUSED , NO DISTRESS NOTED PT IS NOT ABLE TO DO COMMANDS WHEN SHE IS ASKED , PT MOVED ALL EXTS WELL FACIAL DROOPING NOTED TO PT'S TO PTS RIGHT SIDE OF FACE, AND PT HAS BRUISES TO THE LEFT HAND NOTED . BR Source History Provided: [facility] Mode of Arrival Mode of Arrival: Stretcher Timing Onset of Chief Complaint: 04/23/18 PMH PMH Past Medical History: Yes Past Medical History: Alzheimers, Anxiety, Arthritis, CHF, Coronary Artery Disease, Dyslipidemia, Gout, Hypertension and Hypothyroidism Past Surgical History: Yes Surgical History: Unknown Family History History of Family Medical Conditions: No Family Medical History: Cancer and Coronary Artery Disease Social History Does patient currently use any type of tobacco product: No Have you used tobacco products in the last 12 months: No Type of Tobacco Use: None Does any household member use tobacco: No Alcohol Use: None Do you use any recreational Drugs:: No Lives Where: [facility] infectious screening In the last 2 months have you had wt loss of >10#?: NO Have you had fever, night sweats or hemotysis?: No Have you traveled outside the country in the last 6 months?: No Isolation: Standard ROS Review of Systems Constitutional: No Symptoms Reported Eyes: No Symptoms Reported ENTM: No Symptoms Reported Respiratoy: No Symptoms Reported Cardiovascular: No Symptoms Reported Gastrointestinal/Abdominal: No Symptoms Reported Genitourinary: No Symptoms Reported Neurological: No Symptoms Reported Musculoskeletal: No Symptoms Reported Integumentary: No Symptoms Reported Hematologic/Lymphatic: No Symptoms Reported Endocrine: No Symptoms Reported Psychiatric: No Symptoms Reported All Other Systems: Reviewed and Negative PE Vitals Vital Signs: Temp Pulse Resp BP BP BP Pulse Ox 04/25/18 15:15 68 100 04/25/18 15:10 72 160/91 100 04/25/18 15:00 72 142/85 100 04/25/18 14:45 65 100 04/25/18 14:40 198/81 71 L 04/25/18 14:30 67 179/84 100 04/25/18 14:21 63 186/83 100 04/25/18 14:15 64 100 04/25/18 14:09 71 178/88 100 04/25/18 14:08 90 L 04/25/18 11:12 98.0 F 89 20 142/63 99 01/02/18 12:00 117/89 117/89 01/02/18 04:00 119/58 General Limitations: Language Barrier General Appearance: Alert Head Head Exam: Normal Inspection Eyes Eye exam: Normal Appearance ENT ENT Exam: Normal Exam External Ear Exam: Normal External Inspection Nose Exam: Normal Nose Exam Mouth Exam: Normal Inspection Throat Exam: Normal Inspection Neck Neck Exam: Normal Inspection Chest Chest Inspection: Normal Inspection Respiratory Respiratory Exam: Normal Lung Sounds Bilat Cardiovascular Cardiovascular Exam: Regular Rate and Normal Rhythm Abdominal Exam Abdominal Exam: Normal Inspection, Normal Bowel Sounds and Soft Extremities Extremities Exam: Normal Inspection Back Back Exam: Normal Inspection Neurological Neurological Exam: Alert and Oriented X3 Psychological Psychiatric Exam: Normal Affect and Normal Mood Skin Skin Exam: Warm, Dry, Intact and Normal Color ROR Labs Reviewed Laboratory Results Reviewed?: Yes Result Diagrams: 04/25/18 12:04 04/25/18 12:04 Laboratory: WBC 11.7 X10^3/uL (3.6-10.0) H 04/25/18 12:04 RBC 2.88 X10^6/uL (3.5-5.4) L 04/25/18 12:04 Hgb 9.2 g/dL (12.0-16.0) L 04/25/18 12:04 Hct 27.8 % (36.0-47.0) L 04/25/18 12:04 MCV 96.6 fL (80.0-100.0) 04/25/18 12:04 MCH 32.0 pg (27.0-34.0) 04/25/18 12:04 MCHC 33.1 g/dL (33.0-35.0) 04/25/18 12:04 RDW 14.2 % (11.6-16.5) 04/25/18 12:04 Plt Count 226 X10^3/uL (150.0-450.0) 04/25/18 12:04 MPV 7.1 fL (7.4-11.0) L 04/25/18 12:04 Neut % (Auto) 80.7 % (42.0-75.0) H 04/25/18 12:04 Lymph % (Auto) 11.4 % (21.0-51.0) L 04/25/18 12:04 [place] % (Auto) 5.7 % (0.0-13.0) 04/25/18 12:04 Eos % (Auto) 2.0 % (0.9-2.9) 04/25/18 12:04 Baso % (Auto) 0.2 % (0.2-1.0) 04/25/18 12:04 Neut # (Auto) 9.4 x10^3/uL (2.2-4.8) H 04/25/18 12:04 Lymph # (Auto) 1.3 X10^3/uL (1.3-2.9) 04/25/18 12:04 [place] # (Auto) 0.7 x10^3/uL (0.3-0.8) 04/25/18 12:04 Eos # (Auto) 0.2 x10^3/uL (0.0-0.2) 04/25/18 12:04 Baso # (Auto) 0.0 X10^3/uL (0.0-0.1) 04/25/18 12:04 Absolute Nucleated RBC 0.0 /100WBC 04/25/18 12:04 Sodium 145 mmol/L (136-145) 04/25/18 12:04 Corrected Sodium TNP 04/25/18 12:04 Potassium 4.2 mmol/L (3.5-5.1) 04/25/18 12:04 Chloride 107 mmol/L (98-107) 04/25/18 12:04 Carbon Dioxide 28.4 mmol/L (21-32) 04/25/18 12:04 BUN 31 mg/dL (7-18) H 04/25/18 12:04 Creatinine 1.35 mg/dL (0.55-1.02) H 04/25/18 12:04 Est GFR (MDRD) Af Amer 49 (>60) L 04/25/18 12:04 Est GFR (MDRD) Non-Af 40 (>60) L 04/25/18 12:04 Glucose 107 mg/dL (65-99) H 04/25/18 12:04 POC Glucose (mg/dL) 108 mg/dL (65-99) H 04/25/18 11:34 Lactic Acid 0.6 mmol/L (0.4-2.0) 04/25/18 12:04 Calcium 9.1 mg/dL (8.5-10.1) 04/25/18 12:04 Corrected Calcium 9.7 mg/dL (8.5-10.1) 04/25/18 12:04 Total Bilirubin 0.60 mg/dL (0.2-1.0) 04/25/18 12:04 AST 25 Units/L (15-37) 04/25/18 12:04 ALT 24 Units/L (12-78) 04/25/18 12:04 Alkaline Phosphatase 113 Units/L (46-116) 04/25/18 12:04 Creatine Kinase 921 Units/L (26-192) H 04/25/18 12:04 CK-MB (CK-2) 1.9 ng/mL (0-4.0) 04/25/18 12:04 CK/CKMB % Calc 0.2 % (<4) 04/25/18 12:04 Troponin I < 0.02 ng/mL (0-1.5) 04/25/18 12:04 Total Protein 7.5 g/dL (6.4-8.2) 04/25/18 12:04 Albumin 3.2 g/dL (3.4-5.0) L 04/25/18 12:04 Globulin 4.3 g/dL (2.5-4.5) 04/25/18 12:04 Albumin/Globulin Ratio 0.7 Ratio (1.1-2.1) L 04/25/18 12:04 Specimen Type Catherized urine 04/25/18 11:45 Urine Color Yellow (YELLOW) 04/25/18 11:45 Urine Appearance Slightly hazy (CLEAR) 04/25/18 11:45 Urine pH 5.0 (5.0 - 8.0) 04/25/18 11:45 Ur Specific Raymond 1.010 (1.000-1.030) 04/25/18 11:45 Urine Protein 1+ (NEGATIVE) 04/25/18 11:45 Urine Glucose (UA) Negative (NEGATIVE) 04/25/18 11:45 Urine Ketones Negative (NEGATIVE) 04/25/18 11:45 Urine Occult Blood 1+ (NEGATIVE) 04/25/18 11:45 Urine Nitrite Negative (NEGATIVE) 04/25/18 11:45 Urine Bilirubin Negative (NEGATIVE) 04/25/18 11:45 Urine Urobilinogen Normal (NORMAL) 04/25/18 11:45 Ur Leukocyte Esterase 1+ (NEGATIVE) 04/25/18 11:45 Urine RBC 0-2 /HPF (NONE SEEN) 04/25/18 11:45 Urine WBC 0-2 /HPF (NONE SEEN) 04/25/18 11:45 Ur Squamous Epith Cells Moderate /HPF (NEGATIVE) 04/25/18 11:45 Amorphous Sediment Trace /HPF (NEGATIVE) 04/25/18 11:45 Urine Bacteria Trace /HPF (NEGATIVE) 04/25/18 11:45 Ur Culture Indicated? No/not indicated 04/25/18 11:45
[2018-04-25 12:36] LABS: BLOOD UREA NITROGEN 31 mg/dL (7-18); CALCIUM 9.1 mg/dL (8.5-10.1); CARBON DIOXIDE 28.4 mmol/L (21-32); CHLORIDE 107 mmol/L (98-107); CREATININE 1.35 mg/dL (0.55-1.02); SODIUM 145 mmol/L (136-145); TROPONIN I < 0.02 ng/mL (0-1.5); eGFR NON BLACK RACES 40 (>60)
[2018-04-25 12:39] LABS: LACTIC ACID 0.6 mmol/L (0.4-2.0)
[2018-04-25 12:41] LABS: ALANINE AMINOTRANSFERASE 24 Units/L (12-78); ALBUMIN 3.2 g/dL (3.4-5.0); ALKALINE PHOSPHATASE 113 Units/L (46-116); ASPARTATE AMINO TRANSFERASE 25 Units/L (15-37); CKMB % 0.2 % (<4); COR CA(FOR HYPOALB) 9.7 mg/dL (8.5-10.1); CREATINE KINASE 921 Units/L (26-192); CREATINE KINASE MB 1.9 ng/mL (0-4.0); TOTAL PROTEIN 7.5 g/dL (6.4-8.2)
--- NOTE | 2018-04-25 13:49 | CT ---
History: Facial drooping and altered mental status Study: CT brain without contrast. Sagittal and coronal reformations were provided. Comparison: December 31, 2017 Findings: The ventricles and sulci are moderately diffusely enlarged without mass effect. There is no intracranial hemorrhage or mass or edema or subdural collection of fluid. There is moderate periventricular white matter patchy low attenuation. There is hyperostosis frontalis interna. The paranasal sinuses are grossly clear. Impression: No acute intracranial disease. Unchanged atrophy and periventricular white-matter small-vessel disease. Reported By:
[2018-04-25] MEDS ORDERED: VITAMIN B-12 INJ IM SCH (16:49)
[2018-04-25] MEDS: NS 1000 ML 1,000 ML IV SCH (16:59)
[2018-04-25] MEDS: ROCEPHIN VIAL 1 GRAM IVP SCH (16:59)
[2018-04-25] MEDS: ROBITUSSIN (PLAIN) PO SCH ×2 (17:56→21:26)
[2018-04-25 18:22] VITALS: BMI 32.1
[2018-04-25 18:24] LABS: CKMB % 0.2 % (<4); CREATINE KINASE 840 Units/L (26-192); CREATINE KINASE MB 1.7 ng/mL (0-4.0); TROPONIN I < 0.02 ng/mL (0-1.5)
[2018-04-25] MEDS ORDERED: LEXAPRO ONE (20:29)
[2018-04-25] MEDS ORDERED: OMNICEF CAP 300 MG PO SCH (21:00)
[2018-04-25] MEDS: NAPROSYN PO SCH (21:25)
[2018-04-25] MEDS: DESYREL PO SCH (21:25)
[2018-04-25] MEDS: RisperDAL TAB 1 MG PO SCH (21:25)
[2018-04-25] MEDS: LEXAPRO PO SCH (21:26)
[2018-04-25] MEDS: ZOCOR TAB 20 MG PO SCH (21:26)
[2018-04-25] MEDS: ZYLOPRIM PO SCH (21:26)
[2018-04-25] MEDS: PATIENT'S HOME MEDICATION (Melatonin [Melatonin] 10 MG) PO SCH (21:28)
[2018-04-26 00:48] LABS: CKMB % 0.2 % (<4); CREATINE KINASE 645 Units/L (26-192); CREATINE KINASE MB 1.3 ng/mL (0-4.0); TROPONIN I < 0.02 ng/mL (0-1.5)
[2018-04-26 05:27] LABS: BASOPHILS % (AUTO) 0.5 % (0.2-1.0); EOSINOPHILS # (AUTO) 0.2 x10^3/uL (0.0-0.2); EOSINOPHILS % (AUTO) 2.7 % (0.9-2.9); HEMATOCRIT 24.4 % (36.0-47.0); HEMOGLOBIN 8.3 g/dL (12.0-16.0); LYMPHOCYTES # (AUTO) 1.4 X10^3/uL (1.3-2.9); LYMPHOCYTES % (AUTO) 15.4 % (21.0-51.0); MEAN CORPUSCULAR HEMOGLOBIN 32.8 pg (27.0-34.0); MEAN CORPUSCULAR HGB CONC 34.1 g/dL (33.0-35.0); MEAN CORPUSCULAR VOLUME 96.3 fL (80.0-100.0); MEAN PLATELET VOLUME 7.4 fL (7.4-11.0); MONOCYTES # (AUTO) 0.5 x10^3/uL (0.3-0.8); MONOCYTES % (AUTO) 5.6 % (0.0-13.0); NEUTROPHILS # (AUTO) 6.7 x10^3/uL (2.2-4.8); NEUTROPHILS % (AUTO) 75.8 % (42.0-75.0); PLATELET COUNT 207 X10^3/uL (150.0-450.0); RED BLOOD COUNT 2.54 X10^6/uL (3.5-5.4); RED CELL DISTRIBUTION WIDTH 13.9 % (11.6-16.5); WHITE BLOOD COUNT 8.8 X10^3/uL (3.6-10.0)
[2018-04-26 05:44] LABS: ALBUMIN 2.7 g/dL (3.4-5.0); CARBON DIOXIDE 24.4 mmol/L (21-32); CREATININE 1.14 mg/dL (0.55-1.02); MAGNESIUM 2.1 mg/dL (1.7-2.9); TOTAL PROTEIN 6.7 g/dL (6.4-8.2)
--- NOTE | 2018-04-26 05:53 | RAD ---
History: Cough and shortness of breath Study: Portable AP chest Comparison: Yesterday Findings: The heart is mildly enlarged. There is chronic interstitial lung disease. There is no definite effusion or focal lung consolidation. No significant bony abnormality is demonstrated. Impression: Mild cardiomegaly and chronic interstitial lung disease. Reported By:
[2018-04-26] MEDS ORDERED: ZESTRIL TAB 20 MG ONE (07:50)
[2018-04-26] MEDS: ROBITUSSIN (PLAIN) PO SCH ×3 (08:39→21:00)
[2018-04-26] MEDS: ZESTRIL TAB 20 MG PO SCH (08:39)
[2018-04-26] MEDS: NAPROSYN PO SCH ×2 (08:39→21:02)
[2018-04-26] MEDS: ROCEPHIN VIAL 1 GRAM IVP SCH (08:39)
[2018-04-26] MEDS: ANTIVERT TAB 25 MG PO SCH (08:39)
[2018-04-26] MEDS: MEMANTINE DONEPEZIL PO SCH (08:40)
[2018-04-26] MEDS: FESOTERODINE 4 MG PO SCH (08:40)
[2018-04-26] MEDS: SYNTHROID 125 mcg TAB PO SCH (08:43)
[2018-04-26] MEDS ORDERED: PATIENT'S HOME MEDICATION (Levocetirizine [Levocetirizine] 5 MG) PO SCH (09:00)
[2018-04-26] MEDS ORDERED: BUTT CREAM (COMPOUND) TOP PRN (10:21)
[2018-04-26] MEDS: NS 1000 ML 1,000 ML IV SCH ×2 (11:31→20:24)
[2018-04-26] MEDS: KLONOPIN TAB 0.5 MG PO SCH ×3 (11:31→21:03)
[2018-04-26] MEDS ORDERED: LEXAPRO ONE (20:56)
[2018-04-26] MEDS: DESYREL PO SCH (21:01)
[2018-04-26] MEDS: PATIENT'S HOME MEDICATION (Melatonin [Melatonin] 10 MG) PO SCH (21:02)
[2018-04-26] MEDS: LEXAPRO PO SCH (21:02)
[2018-04-26] MEDS: RisperDAL TAB 1 MG PO SCH (21:03)
[2018-04-26] MEDS: ZOCOR TAB 20 MG PO SCH (21:03)
[2018-04-26] MEDS: ZYLOPRIM PO SCH (21:03)
--- NOTE | 2018-04-26 21:21 | DR.H&P ---
H&P - History & Physical for Day of: H&P Date: 04/25/18 - Chief Complaint Chief Complaint: AMS, DROWSINESS - History of Present Illness History of Present Illness: IS A 78 YEAR OLD PATIENT OF OURS WHO IS A RESIDENT OF [facility]. SHE PRESENTED TO THE ER WITH STAFF REPORTING ALTERED MENTAL STATUS AND DROWSINESS. SHE DOES NOT FOLLOW VERBAL COMMANDS, BUT DOES MOVE ALL EXTREMITIES WELL. SHE IS ALSO NOTED WITH RIGHT SIDED FACIAL DROOPING. MEDICAL HISTORY INCLUDES: Alzheimers, Anxiety, Arthritis, CHF, Coronary Artery Disease, Dyslipidemia, Gout, Hypertension and Hypothyroidism. ON ARRIVAL, VITALS WERE 98.0-89-20-99%-142/63. LABS WERE OBTAINED. ABNORMAL LAB VALUES INCLUDE THE FOLLOWING: WBC 11.7, RBC 2.88, HGB 9.2, HCT 27.8, BUN 31, CREATININE 1.35, GLUCOSE 107, CREATINE KINASE 921, ALBUMIN 3.2. URINALYSIS REVEALED: WBC 0-2, RBC 0-2, BACTERIA TRACE, LEUKOCYTES 1+. AN EKG WAS OBTAINED AND REVEALED: SINUS RHYTHM WITH HR 72. A BRAIN CT WAS OBTAINED AND REVEALED: No acute intracranial disease. Unchanged atrophy and periventricular white-matter small-vessel disease. A CHEST XRAY WAS OBTAINED AND REVEALED: Mild cardiomegaly without evidence of failure. There are findings suggesting minimal atelectatic change/infiltrate in the right infrahilar region. SHE WAS ADMITTED TO THE HOSPITAL FOR FURTHER EVALUATION AND TREATMENT OF POSSIBLE DEVELOPING PNEUMONIA AND ALTERED MENTAL STATUS. SHE WAS STARTED ON ROCPEHIN 1GM IV DAILY, NORMAL SALINE AT 50ML/HR, AND HOME MEDICATIONS WERE RESUMED. WE PLANNED TO FOLLOW UP WITH AM LABS AND CHEST XRAY AND CONTINUE TO MONITOR. - Past Medical History Past Medical History: Coronary Artery Disease, Hypertension, Dyslipidemia, Alzheimers, Anxiety, Hypothyroidism, Arthritis, Gout, CHF - Past Surgical History Surgical History: Unknown - Family History Family Medical History: Cancer, Coronary Artery Disease - Social History Does patient currently use any type of tobacco product: No Have you used tobacco products in the last 12 months: No Type of Tobacco Use: None Does any household member use tobacco: No Alcohol Use: None Drug Use: None - Medications Home Medications: fluoxetine [From Prozac] Allergy (Verified 04/25/18 11:59) CONTINUE taking the following medications allopurinol 300 mg PO HS 04/25/18 [History] alprazolam [Xanax] 0.25 mg PO BID 04/25/18 [History] cefdinir 300 mg PO BID 04/25/18 [History] cyanocobalamin (vitamin B-12) 1 ml IM MONTHLY 04/25/18 [History] escitalopram oxalate [Lexapro] 10 mg PO HS 04/25/18 [History] fesoterodine [Toviaz] 4 mg PO DAILY 04/25/18 [History] guaifenesin 10 ml PO QID 04/25/18 [History] levocetirizine 5 mg PO DAILY 04/25/18 [History] levothyroxine [Synthroid] 125 mcg PO DAILY 04/25/18 [History] lisinopril 20 mg PO DAILY 04/25/18 [History] meclizine 25 mg PO DAILY 04/25/18 [History] melatonin 10 mg PO HS 04/25/18 [History] memantine-donepezil [Namzaric] 1 cap PO DAILY 04/25/18 [History] naproxen 500 mg PO BID 04/25/18 [History] risperidone [Risperdal] 1 mg PO HS 04/25/18 [History] simvastatin [Zocor] 20 mg PO HS 04/25/18 [History] trazodone 50 mg PO HS 04/25/18 [History] - Review of Systems Constitutional: Weakness Eyes: No Symptoms Reported ENT: No Symptoms Reported Respiratory: Cough, Shortness of Breath Cardiovascular: No Symptoms Reported Gastrointestinal: No Symptoms Reported Genitourinary: No Symptoms Reported Musculoskeletal: No Symptoms Reported Skin: No Symptoms Reported Neurological: See HPI, Weakness, Confusion, Other (RIGHT SIDED FACIAL DROOPING ) - Physical Exam Vital Signs: Temperature 98.6 F Pulse Rate [Left Brachial] 84 Pulse Rate 68 Respiratory Rate 18 Blood Pressure [Left Arm] 160/73 Blood Pressure [Right Arm] 160/72 Blood Pressure 160/91 O2 Sat by Pulse Oximetry 98 Oriented: Person Eyes: Normal Ear: Normal Nose: Normal Throat: Normal Respiratory: Diminished Throughout Cardiovascular: Normal. negative: S3, S4, Murmur, Edema : Normal Auscultation: Bowel Sounds: Normal Palpation: Normal Tenderness: Normal Skin: Normal Musculoskeletal: Normal Psychiatric: Normal Mood Description: Calm Affect: Normal Speech Pattern: Inappropriate - Assessment/Plan (1) Pneumonia Qualifiers: Pneumonia type: due to unspecified organism Laterality: right Lung location: unspecified part of lung Qualified Code(s): J18.9 - Pneumonia, unspecified organism Status: Suspected Plan: ROCEPHIN 1GM IV DAILY, CONTINUE TO MONITOR (2) Altered mental status Qualifiers: Altered mental status type: transient alteration of awareness Qualified Code(s): R40.4 - Transient alteration of awareness Status: Acute Plan: CONTINUE TO MONITOR - Allergies Allergies/Adverse Reactions: Allergies Allergy/AdvReac Type Severity Reaction Status Date / Time fluoxetine [From [facility]] Allergy Verified 04/25/18 11:59
--- NOTE | 2018-04-27 05:16 | RAD ---
Examination: Portable AP chest History: SOB Comparison 04/26/2018 Findings: Heart size remains borderline enlarged. Vascular congestion and bilateral interstitial pulmonary densities again noted. No developing consolidation, pneumothorax or large pleural effusion. Impression: No significant change since 1 day prior. Reported By:
[2018-04-27] MEDS: KLONOPIN TAB 0.5 MG PO SCH ×2 (05:25→13:47)
[2018-04-27 05:40] LABS: ALANINE AMINOTRANSFERASE 21 Units/L (12-78); ALBUMIN 2.6 g/dL (3.4-5.0); ALKALINE PHOSPHATASE 94 Units/L (46-116); ASPARTATE AMINO TRANSFERASE 19 Units/L (15-37); BLOOD UREA NITROGEN 20 mg/dL (7-18); CALCIUM 8.8 mg/dL (8.5-10.1); CARBON DIOXIDE 25.9 mmol/L (21-32); CHLORIDE 110 mmol/L (98-107); COR CA(FOR HYPOALB) 9.9 mg/dL (8.5-10.1); SODIUM 144 mmol/L (136-145); TOTAL PROTEIN 6.3 g/dL (6.4-8.2); eGFR NON BLACK RACES 46 (>60)
[2018-04-27] MEDS: NS 1000 ML 1,000 ML IV SCH ×2 (05:53→08:20)
[2018-04-27 06:06] LABS: BASOPHILS # (AUTO) 0.1 X10^3/uL (0.0-0.1); BASOPHILS % (AUTO) 0.8 % (0.2-1.0); EOSINOPHILS # (AUTO) 0.3 x10^3/uL (0.0-0.2); EOSINOPHILS % (AUTO) 3.3 % (0.9-2.9); HEMATOCRIT 24.1 % (36.0-47.0); HEMOGLOBIN 8.1 g/dL (12.0-16.0); LYMPHOCYTES # (AUTO) 1.7 X10^3/uL (1.3-2.9); LYMPHOCYTES % (AUTO) 22.3 % (21.0-51.0); MEAN CORPUSCULAR HEMOGLOBIN 32.8 pg (27.0-34.0); MEAN CORPUSCULAR HGB CONC 33.4 g/dL (33.0-35.0); MEAN CORPUSCULAR VOLUME 98.1 fL (80.0-100.0); MEAN PLATELET VOLUME 6.9 fL (7.4-11.0); MONOCYTES # (AUTO) 0.5 x10^3/uL (0.3-0.8); MONOCYTES % (AUTO) 6.8 % (0.0-13.0); NEUTROPHILS # (AUTO) 5.1 x10^3/uL (2.2-4.8); NEUTROPHILS % (AUTO) 66.8 % (42.0-75.0); PLATELET COUNT 214 X10^3/uL (150.0-450.0); RED BLOOD COUNT 2.46 X10^6/uL (3.5-5.4); RED CELL DISTRIBUTION WIDTH 13.9 % (11.6-16.5); WHITE BLOOD COUNT 7.7 X10^3/uL (3.6-10.0)
[2018-04-27] MEDS ORDERED: ZESTRIL TAB 20 MG ONE (08:22)
[2018-04-27] MEDS: ROCEPHIN VIAL 1 GRAM IVP SCH (08:24)
[2018-04-27] MEDS: ZESTRIL TAB 20 MG PO SCH (08:24)
[2018-04-27] MEDS: ANTIVERT TAB 25 MG PO SCH (08:24)
[2018-04-27] MEDS: MEMANTINE DONEPEZIL PO SCH (08:25)
[2018-04-27] MEDS: NAPROSYN PO SCH (08:25)
[2018-04-27] MEDS: ROBITUSSIN (PLAIN) PO SCH ×2 (08:25→12:06)
[2018-04-27] MEDS: FESOTERODINE 4 MG PO SCH (08:25)
[2018-04-27] MEDS: SYNTHROID 125 mcg TAB PO SCH (08:30)
[2018-04-27 12:02] VITALS: BP 171/76
== END 2018-04-27 15:10 ==
LOC: ER 11:10 → MED/SURG 11:10
PROVIDERS: ADMIT Internal Medicine; ATTEND Internal Medicine
DX: I10 Essential (primary) hypertension; G30.8 Other Alzheimer's disease; I25.10 Atherosclerotic heart disease of native coronary artery without angina pectoris; E03.8 Other specified hypothyroidism; M62.81 Muscle weakness (generalized); E78.2 Mixed hyperlipidemia; R06.02 Shortness of breath; J18.8 Other pneumonia, unspecified organism; R29.810 Facial weakness; R94.31 Abnormal electrocardiogram [ECG] [EKG]; R40.4 Transient alteration of awareness
CPT/HCPCS: 36415; 51701; 70450; 71010; 71045; 80053; 81001; 82550; 82553; 83605; 83735; 84484; 85025; 87040; 93005; 94760; 96365; 96367; 96374; 97166; 99282; 99284; A4222; G0378; J0696; J7030

== ENCOUNTER 2019-01-23 16:35 | Inpatient (IN) ==
[2019-01-23] MEDS ORDERED: HumuLIN R SUBCUT PRN (17:57)
[2019-01-23] MEDS ORDERED: ZOFRAN INJ 4 MG VIAL IVP PRN (18:00)
[2019-01-23] MEDS ORDERED: NS 1000 ML 1,000 ML IV SCH (18:00)
[2019-01-23 18:37] LABS: BASOPHILS # (AUTO) 0.1 X10^3/uL (0.0-0.1); BASOPHILS % (AUTO) 0.4 % (0.2-1.0); EOSINOPHILS # (AUTO) 0.1 x10^3/uL (0.0-0.2); EOSINOPHILS % (AUTO) 0.9 % (0.9-2.9); HEMATOCRIT 27.4 % (36.0-47.0); HEMOGLOBIN 8.8 g/dL (12.0-16.0); LYMPHOCYTES # (AUTO) 2.3 X10^3/uL (1.3-2.9); LYMPHOCYTES % (AUTO) 15.9 % (21.0-51.0); MEAN CORPUSCULAR HEMOGLOBIN 31.1 pg (27.0-34.0); MEAN CORPUSCULAR VOLUME 97.2 fL (80.0-100.0); MEAN PLATELET VOLUME 7.6 fL (7.4-11.0); MONOCYTES # (AUTO) 0.6 x10^3/uL (0.3-0.8); MONOCYTES % (AUTO) 4.1 % (0.0-13.0); NEUTROPHILS # (AUTO) 11.6 x10^3/uL (2.2-4.8); NEUTROPHILS % (AUTO) 78.7 % (42.0-75.0); PLATELET COUNT 223 X10^3/uL (150.0-450.0); RED BLOOD COUNT 2.82 X10^6/uL (3.5-5.4); RED CELL DISTRIBUTION WIDTH 15.5 % (11.6-16.5); WHITE BLOOD COUNT 14.7 X10^3/uL (3.6-10.0)
[2019-01-23 18:48] LABS: ALBUMIN 2.7 g/dL (3.4-5.0); CALCIUM 9.3 mg/dL (8.5-10.1); CARBON DIOXIDE 20.8 mmol/L (21-32); COR CA(FOR HYPOALB) 10.3 mg/dL (8.5-10.1); CREATININE 1.52 mg/dL (0.55-1.02); TOTAL PROTEIN 7.6 g/dL (6.4-8.2)
[2019-01-23 20:08] VITALS: BMI 29.7
[2019-01-23] MEDS ORDERED: NS 1/2 1000 ML IV 1,000 ML IV ONE (20:46)
[2019-01-23] MEDS ORDERED: PHARMACY CONSULT LTC MEDICATIONS XX SCH (21:00)
[2019-01-23] MEDS: NS 1/2 1000 ML IV 1,000 ML IV SCH (21:28)
[2019-01-23] MEDS: ZOSYN VIAL 3.375 GRAMS 3.375 G in NS 100 ML IV + SPIKE MINIBAG* 100 ML IV SCH ×2 (21:29→21:43)
[2019-01-23] MEDS: SNACK - Diabetic Appropriate PO SCH (21:35)
[2019-01-24] MEDS: ZOSYN VIAL 3.375 GRAMS 3.375 G in NS 100 ML IV + SPIKE MINIBAG* 100 ML IV SCH ×3 (05:06→21:34)
[2019-01-24 06:20] LABS: BASOPHILS # (AUTO) 0.1 X10^3/uL (0.0-0.1); BASOPHILS % (AUTO) 0.4 % (0.2-1.0); EOSINOPHILS # (AUTO) 0.2 x10^3/uL (0.0-0.2); EOSINOPHILS % (AUTO) 1.8 % (0.9-2.9); HEMATOCRIT 25.8 % (36.0-47.0); HEMOGLOBIN 8.3 g/dL (12.0-16.0); LYMPHOCYTES # (AUTO) 2.3 X10^3/uL (1.3-2.9); LYMPHOCYTES % (AUTO) 18.7 % (21.0-51.0); MEAN CORPUSCULAR HEMOGLOBIN 31.2 pg (27.0-34.0); MEAN CORPUSCULAR HGB CONC 32.1 g/dL (33.0-35.0); MEAN PLATELET VOLUME 7.6 fL (7.4-11.0); MONOCYTES # (AUTO) 0.5 x10^3/uL (0.3-0.8); MONOCYTES % (AUTO) 3.9 % (0.0-13.0); NEUTROPHILS # (AUTO) 9.2 x10^3/uL (2.2-4.8); NEUTROPHILS % (AUTO) 75.2 % (42.0-75.0); PLATELET COUNT 197 X10^3/uL (150.0-450.0); RED BLOOD COUNT 2.66 X10^6/uL (3.5-5.4); RED CELL DISTRIBUTION WIDTH 15.3 % (11.6-16.5); WHITE BLOOD COUNT 12.2 X10^3/uL (3.6-10.0)
[2019-01-24 06:36] LABS: ALBUMIN 2.4 g/dL (3.4-5.0); CARBON DIOXIDE 23.2 mmol/L (21-32); COR CA(FOR HYPOALB) 10.3 mg/dL (8.5-10.1); CREATININE 1.45 mg/dL (0.55-1.02)
[2019-01-24] MEDS ORDERED: ZESTRIL TAB 20 MG PO SCH (11:00)
[2019-01-24] MEDS ORDERED: ZESTRIL TAB 20 MG ONE (11:29)
[2019-01-24] MEDS: SYNTHROID 125 mcg TAB PO SCH (11:35)
[2019-01-24] MEDS: ANTIVERT TAB 25 MG PO SCH (11:35)
[2019-01-24] MEDS: COLACE CAP 100 MG PO SCH (11:35)
[2019-01-24] MEDS: TAB-A-VITE PO SCH (11:35)
[2019-01-24] MEDS: TORADOL 15 MG VIAL IVP SCH ×3 (11:36→22:30)
[2019-01-24] MEDS: DESYREL PO SCH (11:36)
[2019-01-24] MEDS: FESOTERODINE 4 MG PO SCH (11:55)
[2019-01-24] MEDS: PATIENT'S HOME MEDICATION (Levocetirizine 5 MG) PO SCH (11:56)
[2019-01-24] MEDS: NYSTATIN POWDER TOP SCH ×2 (11:56→21:34)
[2019-01-24] MEDS: MIRALAX POWDER (1 DOSE 17 G) PO SCH (11:56)
[2019-01-24] MEDS: NS 1/2 1000 ML IV 1,000 ML IV SCH ×3 (12:12→23:48)
[2019-01-24] MEDS ORDERED: NS 1/2 1000 ML IV 1,000 ML IV ONE (13:19)
[2019-01-24] MEDS ORDERED: LEXAPRO ONE (20:42)
[2019-01-24] MEDS ORDERED: PATIENT'S HOME MEDICATION (Melatonin 10 MG) PO SCH (21:00)
[2019-01-24] MEDS: SNACK - Diabetic Appropriate PO SCH (21:31)
[2019-01-24] MEDS: RisperDAL TAB 1 MG PO SCH (21:32)
[2019-01-24] MEDS: ZOCOR TAB 20 MG PO SCH (21:33)
[2019-01-24] MEDS: LEXAPRO PO SCH (21:33)
[2019-01-24] MEDS: ZYLOPRIM PO SCH (21:33)
[2019-01-24] MEDS: KLONOPIN TAB 0.5 MG PO SCH (21:33)
[2019-01-25] MEDS ORDERED: NS 1/2 1000 ML IV 1,000 ML IV ONE (02:40)
[2019-01-25] MEDS: NS 1/2 1000 ML IV 1,000 ML IV SCH (02:57)
[2019-01-25] MEDS: TORADOL 15 MG VIAL IVP SCH ×4 (05:13→23:45)
[2019-01-25] MEDS: ZOSYN VIAL 3.375 GRAMS 3.375 G in NS 100 ML IV + SPIKE MINIBAG* 100 ML IV SCH ×3 (05:24→21:47)
[2019-01-25 05:34] LABS: BASOPHILS % (AUTO) 0.4 % (0.2-1.0); EOSINOPHILS # (AUTO) 0.3 x10^3/uL (0.0-0.2); EOSINOPHILS % (AUTO) 2.6 % (0.9-2.9); HEMATOCRIT 24.3 % (36.0-47.0); HEMOGLOBIN 7.9 g/dL (12.0-16.0); LYMPHOCYTES # (AUTO) 2.7 X10^3/uL (1.3-2.9); LYMPHOCYTES % (AUTO) 27.9 % (21.0-51.0); MEAN CORPUSCULAR HEMOGLOBIN 31.7 pg (27.0-34.0); MEAN CORPUSCULAR HGB CONC 32.4 g/dL (33.0-35.0); MEAN CORPUSCULAR VOLUME 97.8 fL (80.0-100.0); MEAN PLATELET VOLUME 8.4 fL (7.4-11.0); MONOCYTES # (AUTO) 0.4 x10^3/uL (0.3-0.8); MONOCYTES % (AUTO) 4.3 % (0.0-13.0); NEUTROPHILS # (AUTO) 6.2 x10^3/uL (2.2-4.8); NEUTROPHILS % (AUTO) 64.8 % (42.0-75.0); PLATELET COUNT 187 X10^3/uL (150.0-450.0); RED BLOOD COUNT 2.49 X10^6/uL (3.5-5.4); RED CELL DISTRIBUTION WIDTH 15.3 % (11.6-16.5); WHITE BLOOD COUNT 9.5 X10^3/uL (3.6-10.0)
[2019-01-25 05:50] LABS: ALANINE AMINOTRANSFERASE 23 Units/L (12-78); ALKALINE PHOSPHATASE 67 Units/L (46-116); ASPARTATE AMINO TRANSFERASE 18 Units/L (15-37); BLOOD UREA NITROGEN 40 mg/dL (7-18); CALCIUM 8.3 mg/dL (8.5-10.1); CARBON DIOXIDE 21.8 mmol/L (21-32); CHLORIDE 108 mmol/L (98-107); COR CA(FOR HYPOALB) 9.9 mg/dL (8.5-10.1); CREATININE 1.39 mg/dL (0.55-1.02); SODIUM 139 mmol/L (136-145); eGFR NON BLACK RACES 39 (>60)
[2019-01-25 06:13] LABS: HYPOCHROMASIA SLIGHT; PLATELET MORPHOLOGY COMMENT NORMAL (NORMAL)
[2019-01-25] MEDS: ANTIVERT TAB 25 MG PO SCH (09:37)
[2019-01-25] MEDS: COLACE CAP 100 MG PO SCH (09:38)
[2019-01-25] MEDS: DESYREL PO SCH (09:38)
[2019-01-25] MEDS: SYNTHROID 125 mcg TAB PO SCH (09:39)
[2019-01-25] MEDS: MIRALAX POWDER (1 DOSE 17 G) PO SCH (09:39)
[2019-01-25] MEDS: TAB-A-VITE PO SCH (09:39)
[2019-01-25] MEDS: NYSTATIN POWDER TOP SCH ×2 (09:40→21:58)
[2019-01-25] MEDS: FESOTERODINE 4 MG PO SCH (09:57)
[2019-01-25] MEDS: PATIENT'S HOME MEDICATION (Levocetirizine 5 MG) PO SCH (09:57)
[2019-01-25] MEDS ORDERED: PHARMACY CONSULT - TPN XX SCH (11:00)
[2019-01-25] MEDS ORDERED: LEVAQUIN PREMIX IV 500 MG 500 MG/100 ML BAG IV SCH (11:00)
[2019-01-25] MEDS ORDERED: LEVAQUIN PREMIX IV 500 MG 500 MG/100 ML BAG IV ONE (11:18)
[2019-01-25] MEDS ORDERED: LEVAQUIN PREMIX IV 500 MG 500 MG/100 ML BAG IV NR (12:00)
[2019-01-25] MEDS ORDERED: MIRALAX POWDER (1 DOSE 17 G) PO PRN (14:41)
[2019-01-25] MEDS: PROCALAMINE 3 % 1,000 ML IV SCH (16:09)
[2019-01-25] MEDS ORDERED: LEXAPRO ONE (20:20)
[2019-01-25] MEDS: SNACK - Diabetic Appropriate PO SCH (21:58)
[2019-01-25] MEDS: KLONOPIN TAB 0.5 MG PO SCH (21:58)
[2019-01-25] MEDS: ZYLOPRIM PO SCH (21:58)
[2019-01-25] MEDS: LEXAPRO PO SCH (21:58)
[2019-01-25] MEDS: RisperDAL TAB 1 MG PO SCH (21:58)
[2019-01-25] MEDS: ZOCOR TAB 20 MG PO SCH (21:58)
[2019-01-26] MEDS ORDERED: RESTORIL CAP 15 MG PO ONE ×2 (01:36→01:38)
[2019-01-26 05:31] LABS: BASOPHILS % (AUTO) 0.4 % (0.2-1.0); EOSINOPHILS # (AUTO) 0.3 x10^3/uL (0.0-0.2); EOSINOPHILS % (AUTO) 3.1 % (0.9-2.9); HEMATOCRIT 25.6 % (36.0-47.0); HEMOGLOBIN 8.4 g/dL (12.0-16.0); LYMPHOCYTES % (AUTO) 23.7 % (21.0-51.0); MEAN CORPUSCULAR HEMOGLOBIN 31.8 pg (27.0-34.0); MEAN CORPUSCULAR HGB CONC 32.9 g/dL (33.0-35.0); MEAN CORPUSCULAR VOLUME 96.5 fL (80.0-100.0); MEAN PLATELET VOLUME 8.2 fL (7.4-11.0); MONOCYTES # (AUTO) 0.3 x10^3/uL (0.3-0.8); MONOCYTES % (AUTO) 3.9 % (0.0-13.0); NEUTROPHILS # (AUTO) 5.7 x10^3/uL (2.2-4.8); NEUTROPHILS % (AUTO) 68.9 % (42.0-75.0); PLATELET COUNT 203 X10^3/uL (150.0-450.0); RED BLOOD COUNT 2.65 X10^6/uL (3.5-5.4); RED CELL DISTRIBUTION WIDTH 15.2 % (11.6-16.5); WHITE BLOOD COUNT 8.3 X10^3/uL (3.6-10.0)
[2019-01-26 05:45] LABS: ALANINE AMINOTRANSFERASE 22 Units/L (12-78); ALBUMIN 2.2 g/dL (3.4-5.0); ALKALINE PHOSPHATASE 71 Units/L (46-116); ASPARTATE AMINO TRANSFERASE 12 Units/L (15-37); BLOOD UREA NITROGEN 28 mg/dL (7-18); CALCIUM 8.7 mg/dL (8.5-10.1); CARBON DIOXIDE 24.1 mmol/L (21-32); CHLORIDE 108 mmol/L (98-107); COR CA(FOR HYPOALB) 10.1 mg/dL (8.5-10.1); CREATININE 1.22 mg/dL (0.55-1.02); SODIUM 141 mmol/L (136-145); TOTAL PROTEIN 6.5 g/dL (6.4-8.2); eGFR NON BLACK RACES 45 (>60)
[2019-01-26] MEDS: TORADOL 15 MG VIAL IVP SCH ×4 (05:58→23:30)
[2019-01-26] MEDS: ZOSYN VIAL 3.375 GRAMS 3.375 G in NS 100 ML IV + SPIKE MINIBAG* 100 ML IV SCH ×3 (06:18→20:45)
[2019-01-26] MEDS: ANTIVERT TAB 25 MG PO SCH (08:54)
[2019-01-26] MEDS: LEVAQUIN PREMIX IV 250 MG 250 MG/50 ML BAG IV SCH (08:54)
[2019-01-26] MEDS: TAB-A-VITE PO SCH (08:54)
[2019-01-26] MEDS: SYNTHROID 125 mcg TAB PO SCH (08:55)
[2019-01-26] MEDS: DESYREL PO SCH ×2 (08:55→20:45)
[2019-01-26] MEDS: COLACE CAP 100 MG PO SCH (08:55)
[2019-01-26] MEDS: NYSTATIN POWDER TOP SCH ×2 (08:55→20:45)
[2019-01-26] MEDS ORDERED: VALIUM ONE (09:01)
[2019-01-26] MEDS: VALIUM PO PRN ×2 (09:04→23:30)
--- NOTE | 2019-01-26 09:41 | DR.H&P ---
H&P - History & Physical for Day of: H&P Date: 01/23/19 - Chief Complaint Chief Complaint: FEVER, LEFT SIDE NECK SWELLING - History of Present Illness History of Present Illness: IS A 78 YEAR OLD PATIENT OF OURS. SHE IS A RESIDENT OF [facility]. SHE WAS ADMITTED DUE TO FEVER, LEFT SIDE NECK SWELLING, AND LEUKOCYTOSIS. SHE WAS EVALUATED IN THE ER YESTERDAY, WHERE A SOFT TISSUE NECK CT REVEALED: Left facial soft tissue swelling extending from the superficial aspect of the left parotid gland, beneath the left mandible. There is asymmetric thickening in the pharynx, and enlargement of the left submandibular gland. Sialidinitis is possible, with salivary clot that gland tumor or tumor of the pharynx possible as well. ENT follow-up recommended to exclude cancer. ON ARRIVAL TO THE HOSPITAL, VITALS WERE 97.7-109-18-96%-123/56. LABS WERE OBTAINED. ABNORMAL LAB VALUES INCLUDE THE FOLLOWING: WBC 14.7, RBC 2.82, HGB 8.8, HCT 27.4, SODIUM 149, CHLORIDE 115, CARBON DIOXIDE 20.8, BUN 48, CREATININE 1.52, GLUCOSE 134, AST 11, ALBUMIN 2.7, GLOBULIN 4.9. BLOOD CULTURES OBTAINED. SHE WAS STARTED ON ZOSYN 3.375G IV TID, IV FLUIDS, AND HOME MEDICATIONS WERE RESUMED. OTHERWISE, WE PLAN TO FOLLOW UP WITH AM LABS AND CONTINUE TO MONITOR. - Past Medical History Past Medical History: Coronary Artery Disease, Hypertension, Dyslipidemia, Alzheimers, Anxiety, Hypothyroidism, Arthritis, Gout, CHF - Past Surgical History Surgical History: - Family History Family Medical History: Cancer, Coronary Artery Disease - Social History Alcohol Use: None Drug Use: None - Medications Home Medications: fluoxetine [From Prozac] Allergy (Verified 01/22/19 14:06) haloperidol [From Haldol] Allergy (Verified 01/23/19 17:38) CONTINUE taking the following medications fesoterodine [Toviaz] 4 mg PO DAILY 01/23/19 [History] magnesium hydroxide [Milk of Magnesia] 30 ml PO Q6H PRN 01/23/19 [History] nystatin 1 applic TOPICAL BID 01/23/19 [History] polyethylene glycol 3350 [Miralax] 17 g PO DAILY 01/23/19 [History] trazodone 50 mg PO DAILY 01/23/19 [History] - Review of Systems Constitutional: No Symptoms Reported Eyes: No Symptoms Reported ENT: Other (ENLARGED NODE/MASS LEFT SIDE LOWER JAW/NECK) Respiratory: No Symptoms Reported Cardiovascular: No Symptoms Reported Gastrointestinal: No Symptoms Reported Genitourinary: No Symptoms Reported Musculoskeletal: No Symptoms Reported Neurological: Other (HISTORY OF ALZHEIMERS/DEMENTIA. PATIENT IS NON-VERBAL ) - Physical Exam Vital Signs: Temperature 97.5 F Pulse Rate [Right Brachial] 74 Respiratory Rate 20 Blood Pressure [Left Arm] 88/50 Blood Pressure [Right Arm] 120/58 Blood Pressure 112/62 O2 Sat by Pulse Oximetry 94 Oriented: Unable to test Eyes: Normal Ear: Normal Nose: Normal Throat: Normal Respiratory: Diminished Throughout Cardiovascular: Normal : Normal Auscultation: Bowel Sounds: Normal Palpation: Normal Tenderness: Normal Skin: Other (ENLARGED NODE/MASS LEFT SIDE LOWER JAW/NECK) Musculoskeletal: Normal Psychiatric: Normal Mood Description: Calm Affect: Normal Speech Pattern: Aphasic - Assessment/Plan (1) Leukocytosis Qualifiers: Leukocytosis type: other Qualified Code(s): D72.828 - Other elevated white blood cell count Status: Acute Plan: ADMIT, IV ZOSYN, CONTINUE TO MONITOR (2) Sialadenitis Status: Acute Plan: IV ZOSYN, CONTINUE TO MONITOR (3) Fever Qualifiers: Fever type: unspecified Qualified Code(s): R50.9 - Fever, unspecified Status: Acute - Review H&P Reviewed: Yes Patient was examined?: Yes - Allergies Allergies/Adverse Reactions: Allergies Allergy/AdvReac Type Severity Reaction Status Date / Time fluoxetine [From Prozac] Allergy Verified 01/22/19 14:06 haloperidol [From Haldol] Allergy Verified 01/23/19 17:38
[2019-01-26] MEDS: PROCALAMINE 3 % 1,000 ML IV SCH (11:12)
--- NOTE | 2019-01-26 13:09 | PCM.PROG ---
Progress Note - Progress Note for Day of Date of Exam: 01/26/19 - Subjective Subjective: WAS ADMITTED FOR SIALADENITIS, LEUKOCYTOSIS, AND FEVER. TODAY, SHE IS LYING IN BED WITH EYES CLOSED ON MORNING ROUNDS. SHE AWAKENS TO VERBAL STIMULI. SHE CONTINUES WITH SWELLING TO THE LEFT SIDE NECK TODAY. FAMILY REPORTS THAT SHE APPEARTS TO BE UNCOMFORTABLE AND IN PAIN. HER TEMPERATURE HAS BEEN NORMAL THROUGHOUT THE NIGHT. HER VITALS THIS MORNING ARE: 98.0-74-20-100%-147/67. LABS WERE OBTAINED. ABNORMAL LAB VALUES INCLUDE THE FOLLOWING: WBC 12.2, RBC 2.66, HGB 8.3, HCT 25.8, SODIUM 147, CHLORIDE 114, BUN 45, CREATININE 1.45, GLUCOSE 115, ALBUMIN 2.4, GLOBULIN 4.6. BLOOD CULTURES ARE PENDING. SHE IS CURRENTLY RECEIVING IV ZOSYN AND IV FLUIDS. WE WILL RESUME HER HOME MEDS THIS MORNING AND START TORADOL 15MG IV Q6H. OTHERWISE, WE PLAN TO FOLLOW UP WITH AM LABS AND CONTINUE TO MONITOR. - Past Medical Family Social History Past Med/Fam/Surg Hx: No changes since H&P Allergies: Allergies fluoxetine [From Prozac] Allergy (Verified 01/22/19 14:06) haloperidol [From Haldol] Allergy (Verified 01/23/19 17:38) - Review of Systems ROS: No change since H&P - Vital Signs and I&O's Vital Signs: Temperature 98.1 F Pulse Rate [Right Brachial] 60 Respiratory Rate 20 Blood Pressure [Left Arm] 88/50 Blood Pressure [Right Arm] 132/57 Blood Pressure 112/62 O2 Sat by Pulse Oximetry 99 Intake and Output: Intake & Output 01/24/19 01/25/19 01/26/19 01/27/19 11:59 11:59 11:59 11:59 Intake Total 880 / 880 3178 / 3178 1060 / 1060 Balance 880 / 880 3178 / 3178 1060 / 1060 - Physical Exam Oriented: Unable to test Eyes: Normal Ear: Normal Nose: Normal Throat: Normal Respiratory: Generalized, Diminished Cardiovascular: Normal : Normal Auscultation: Bowel Sounds: Normal Palpation: Normal Tenderness: Normal Skin: Other (ENLARGED NODE/MASS LEFT SIDE LOWER JAW/NECK) Musculoskeletal: Normal Psychiatric: Normal Mood Description: Calm Affect: Normal Speech Pattern: Aphasic - Laboratory and Diagnostics Result Diagrams: 01/26/19 04:45 01/26/19 04:45 Labs: 01/23/19 18:26 Blood Blood Culture - Preliminary 01/23/19 18:20 Blood Blood Culture - Preliminary Laboratory WBC 8.3 X10^3/uL (3.6-10.0) 01/26/19 04:45 RBC 2.65 X10^6/uL (3.5-5.4) L 01/26/19 04:45 Hgb 8.4 g/dL (12.0-16.0) L 01/26/19 04:45 Hct 25.6 % (36.0-47.0) L 01/26/19 04:45 MCV 96.5 fL (80.0-100.0) 01/26/19 04:45 MCH 31.8 pg (27.0-34.0) 01/26/19 04:45 MCHC 32.9 g/dL (33.0-35.0) L 01/26/19 04:45 RDW 15.2 % (11.6-16.5) 01/26/19 04:45 Plt Count 203 X10^3/uL (150.0-450.0) 01/26/19 04:45 Plt Count Comment Adequate (ADEQUATE) 01/25/19 04:45 MPV 8.2 fL (7.4-11.0) 01/26/19 04:45 Neut % (Auto) 68.9 % (42.0-75.0) 01/26/19 04:45 Lymph % (Auto) 23.7 % (21.0-51.0) 01/26/19 04:45 [place] % (Auto) 3.9 % (0.0-13.0) 01/26/19 04:45 Eos % (Auto) 3.1 % (0.9-2.9) H 01/26/19 04:45 Baso % (Auto) 0.4 % (0.2-1.0) 01/26/19 04:45 Neut # (Auto) 5.7 x10^3/uL (2.2-4.8) H 01/26/19 04:45 Lymph # (Auto) 2.0 X10^3/uL (1.3-2.9) 01/26/19 04:45 [place] # (Auto) 0.3 x10^3/uL (0.3-0.8) 01/26/19 04:45 Eos # (Auto) 0.3 x10^3/uL (0.0-0.2) H 01/26/19 04:45 Baso # (Auto) 0.0 X10^3/uL (0.0-0.1) 01/26/19 04:45 Absolute Nucleated RBC 0.0 /100WBC 01/26/19 04:45 Plt Morphology Comment Normal (NORMAL) 01/25/19 04:45 RBC Morphology Abnormal (NORMAL) A 01/25/19 04:45 Hypochromasia Slight A 01/25/19 04:45 Sodium 141 mmol/L (136-145) 01/26/19 04:45 Corrected Sodium TNP 01/26/19 04:45 Potassium 4.8 mmol/L (3.5-5.1) 01/26/19 04:45 Chloride 108 mmol/L (98-107) H 01/26/19 04:45 Carbon Dioxide 24.1 mmol/L (21-32) 01/26/19 04:45 BUN 28 mg/dL (7-18) H 01/26/19 04:45 Creatinine 1.22 mg/dL (0.55-1.02) H 01/26/19 04:45 Est GFR (MDRD) Af Amer 55 (>60) L 01/26/19 04:45 Est GFR (MDRD) Non-Af 45 (>60) L 01/26/19 04:45 Glucose 99 mg/dL (65-99) 01/26/19 04:45 POC Glucose (mg/dL) 115 mg/dL (65-99) H 01/23/19 20:37 Calcium 8.7 mg/dL (8.5-10.1) 01/26/19 04:45 Corrected Calcium 10.1 mg/dL (8.5-10.1) 01/26/19 04:45 Total Bilirubin 0.10 mg/dL (0.2-1.0) L 01/26/19 04:45 AST 12 Units/L (15-37) L 01/26/19 04:45 ALT 22 Units/L (12-78) 01/26/19 04:45 Alkaline Phosphatase 71 Units/L (46-116) 01/26/19 04:45 Total Protein 6.5 g/dL (6.4-8.2) 01/26/19 04:45 Albumin 2.2 g/dL (3.4-5.0) L 01/26/19 04:45 Globulin 4.3 g/dL (2.5-4.5) 01/26/19 04:45 Albumin/Globulin Ratio 0.5 Ratio (1.1-2.1) L 01/26/19 04:45 Blood Type A NEGATIVE 01/25/19 10:48 Antibody Screen Negative 01/25/19 10:48 - Plan (1) Leukocytosis Status: Acute Qualifiers: Leukocytosis type: other Qualified Code(s): D72.828 - Other elevated white blood cell count Plan: ADMIT, IV ZOSYN, CONTINUE TO MONITOR (2) Sialadenitis Status: Acute Plan: IV ZOSYN, TORADOL 15MG IV Q6H, CONTINUE TO MONITOR (3) Fever Status: Acute Qualifiers: Fever type: unspecified Qualified Code(s): R50.9 - Fever, unspecified
--- NOTE | 2019-01-26 20:05 | PCM.PROG ---
Progress Note - Progress Note for Day of Date of Exam: 01/25/19 - Subjective Subjective: WAS ADMITTED FOR SIALADENITIS, LEUKOCYTOSIS, AND FEVER. TODAY, SHE IS LYING IN BED WITH EYES CLOSED ON MORNING ROUNDS. SHE AWAKENS TO VERBAL STIMULI. SHE CONTINUES WITH SWELLING TO THE LEFT SIDE NECK TODAY, HOWEVER, IT HAS SLIGHTLY DECREASED SINCE YESTERDAY. SHE HAS BEEN AFEBRILE THROUGHOUT THE NIGHT. HER VITALS THIS MORNING ARE: 97.8-52-17-100%-98/55. LABS WERE OBTAINED. ABNORMAL LAB VALUES INCLUDE THE FOLLOWING: RBC 2.49, HGB 7.9, HCT 24.3, CHLORIDE 108, BUN 40, CREATININE 1.39, CALCIUM 8.3, TOTAL PROTEIN 6.0, ALBUMIN 2.0. BLOOD CULTURES ARE PENDING. SHE IS CURRENTLY RECEIVING IV ZOSYN, TORADOL 15MG IV Q6H, AND IV FLUIDS. WE WILL START PROCALAMINE AT 80ML/HR TODAY. OTHERWISE, WE WILL CONTINUE WITH CURRENT PLAN OF CARE. WE PLAN TO FOLLOW UP WITH AM LABS AND CONTINUE TO MONITOR. - Past Medical Family Social History Past Med/Fam/Surg Hx: No changes since H&P Allergies: Allergies fluoxetine [From Prozac] Allergy (Verified 01/22/19 14:06) haloperidol [From Haldol] Allergy (Verified 01/23/19 17:38) - Review of Systems ROS: No change since H&P - Vital Signs and I&O's Vital Signs: Temperature 98.9 F Pulse Rate [Right Brachial] 82 Respiratory Rate 22 Blood Pressure [Left Arm] 88/50 Blood Pressure [Right Arm] 121/57 Blood Pressure 112/62 O2 Sat by Pulse Oximetry 99 Intake and Output: Intake & Output 01/24/19 01/25/19 01/26/19 01/27/19 11:59 11:59 11:59 11:59 Intake Total 880 / 880 3178 / 3178 1060 / 1060 840 / 840 Balance 880 / 880 3178 / 3178 1060 / 1060 840 / 840 - Physical Exam Oriented: Unable to test Eyes: Normal Ear: Normal Nose: Normal Throat: Normal Respiratory: Generalized, Diminished Cardiovascular: Normal : Normal Auscultation: Bowel Sounds: Normal Tenderness: Normal Skin: Other (ENLARGED NODE/MASS LEFT SIDE LOWER JAW/NECK) Musculoskeletal: Normal Psychiatric: Normal Mood Description: Calm Affect: Normal Speech Pattern: Aphasic - Laboratory and Diagnostics Result Diagrams: 01/26/19 04:45 01/26/19 04:45 Labs: 01/23/19 18:26 Blood Blood Culture - Preliminary 01/23/19 18:20 Blood Blood Culture - Preliminary Laboratory WBC 8.3 X10^3/uL (3.6-10.0) 01/26/19 04:45 RBC 2.65 X10^6/uL (3.5-5.4) L 01/26/19 04:45 Hgb 8.4 g/dL (12.0-16.0) L 01/26/19 04:45 Hct 25.6 % (36.0-47.0) L 01/26/19 04:45 MCV 96.5 fL (80.0-100.0) 01/26/19 04:45 MCH 31.8 pg (27.0-34.0) 01/26/19 04:45 MCHC 32.9 g/dL (33.0-35.0) L 01/26/19 04:45 RDW 15.2 % (11.6-16.5) 01/26/19 04:45 Plt Count 203 X10^3/uL (150.0-450.0) 01/26/19 04:45 Plt Count Comment Adequate (ADEQUATE) 01/25/19 04:45 MPV 8.2 fL (7.4-11.0) 01/26/19 04:45 Neut % (Auto) 68.9 % (42.0-75.0) 01/26/19 04:45 Lymph % (Auto) 23.7 % (21.0-51.0) 01/26/19 04:45 [place] % (Auto) 3.9 % (0.0-13.0) 01/26/19 04:45 Eos % (Auto) 3.1 % (0.9-2.9) H 01/26/19 04:45 Baso % (Auto) 0.4 % (0.2-1.0) 01/26/19 04:45 Neut # (Auto) 5.7 x10^3/uL (2.2-4.8) H 01/26/19 04:45 Lymph # (Auto) 2.0 X10^3/uL (1.3-2.9) 01/26/19 04:45 [place] # (Auto) 0.3 x10^3/uL (0.3-0.8) 01/26/19 04:45 Eos # (Auto) 0.3 x10^3/uL (0.0-0.2) H 01/26/19 04:45 Baso # (Auto) 0.0 X10^3/uL (0.0-0.1) 01/26/19 04:45 Absolute Nucleated RBC 0.0 /100WBC 01/26/19 04:45 Plt Morphology Comment Normal (NORMAL) 01/25/19 04:45 RBC Morphology Abnormal (NORMAL) A 01/25/19 04:45 Hypochromasia Slight A 01/25/19 04:45 Sodium 141 mmol/L (136-145) 01/26/19 04:45 Corrected Sodium TNP 01/26/19 04:45 Potassium 4.8 mmol/L (3.5-5.1) 01/26/19 04:45 Chloride 108 mmol/L (98-107) H 01/26/19 04:45 Carbon Dioxide 24.1 mmol/L (21-32) 01/26/19 04:45 BUN 28 mg/dL (7-18) H 01/26/19 04:45 Creatinine 1.22 mg/dL (0.55-1.02) H 01/26/19 04:45 Est GFR (MDRD) Af Amer 55 (>60) L 01/26/19 04:45 Est GFR (MDRD) Non-Af 45 (>60) L 01/26/19 04:45 Glucose 99 mg/dL (65-99) 01/26/19 04:45 POC Glucose (mg/dL) 115 mg/dL (65-99) H 01/23/19 20:37 Calcium 8.7 mg/dL (8.5-10.1) 01/26/19 04:45 Corrected Calcium 10.1 mg/dL (8.5-10.1) 01/26/19 04:45 Total Bilirubin 0.10 mg/dL (0.2-1.0) L 01/26/19 04:45 AST 12 Units/L (15-37) L 01/26/19 04:45 ALT 22 Units/L (12-78) 01/26/19 04:45 Alkaline Phosphatase 71 Units/L (46-116) 01/26/19 04:45 Total Protein 6.5 g/dL (6.4-8.2) 01/26/19 04:45 Albumin 2.2 g/dL (3.4-5.0) L 01/26/19 04:45 Globulin 4.3 g/dL (2.5-4.5) 01/26/19 04:45 Albumin/Globulin Ratio 0.5 Ratio (1.1-2.1) L 01/26/19 04:45 Blood Type A NEGATIVE 01/25/19 10:48 Antibody Screen Negative 01/25/19 10:48 - Plan (1) Leukocytosis Status: Acute Qualifiers: Leukocytosis type: other Qualified Code(s): D72.828 - Other elevated white blood cell count Plan: IV FLUIDS, IV ZOSYN, CONTINUE TO MONITOR (2) Sialadenitis Status: Acute Plan: IV ZOSYN, TORADOL 15MG IV Q6H, CONTINUE TO MONITOR (3) Fever Status: Acute Qualifiers: Fever type: unspecified Qualified Code(s): R50.9 - Fever, unspecified
[2019-01-26] MEDS ORDERED: LEXAPRO ONE (20:36)
[2019-01-26] MEDS: KLONOPIN TAB 0.5 MG PO SCH (20:45)
[2019-01-26] MEDS: LEXAPRO PO SCH (20:45)
[2019-01-26] MEDS: ZOCOR TAB 20 MG PO SCH (20:45)
[2019-01-26] MEDS: ZYLOPRIM PO SCH (20:45)
[2019-01-26] MEDS: RisperDAL TAB 1 MG PO SCH (20:45)
[2019-01-27 05:23] LABS: BASOPHILS % (AUTO) 0.7 % (0.2-1.0); HEMOGLOBIN 7.9 g/dL (12.0-16.0); MEAN CORPUSCULAR HGB CONC 33.8 g/dL (33.0-35.0); MONOCYTES # (AUTO) 0.4 x10^3/uL (0.3-0.8)
[2019-01-27 05:28] LABS: EOSINOPHILS # (AUTO) 0.2 x10^3/uL (0.0-0.2); EOSINOPHILS % (AUTO) 3.3 % (0.9-2.9); HEMATOCRIT 23.3 % (36.0-47.0); LYMPHOCYTES # (AUTO) 2.4 X10^3/uL (1.3-2.9); LYMPHOCYTES % (AUTO) 34.2 % (21.0-51.0); MEAN CORPUSCULAR HEMOGLOBIN 31.6 pg (27.0-34.0); MEAN CORPUSCULAR VOLUME 93.6 fL (80.0-100.0); MEAN PLATELET VOLUME 7.5 fL (7.4-11.0); MONOCYTES % (AUTO) 5.5 % (0.0-13.0); NEUTROPHILS % (AUTO) 56.3 % (42.0-75.0); PLATELET COUNT 209 X10^3/uL (150.0-450.0); RED BLOOD COUNT 2.49 X10^6/uL (3.5-5.4); RED CELL DISTRIBUTION WIDTH 14.9 % (11.6-16.5); WHITE BLOOD COUNT 7.1 X10^3/uL (3.6-10.0)
[2019-01-27 05:49] LABS: ALANINE AMINOTRANSFERASE 19 Units/L (12-78); ALKALINE PHOSPHATASE 63 Units/L (46-116); ASPARTATE AMINO TRANSFERASE 13 Units/L (15-37); BLOOD UREA NITROGEN 19 mg/dL (7-18); CALCIUM 8.5 mg/dL (8.5-10.1); CARBON DIOXIDE 20.7 mmol/L (21-32); CHLORIDE 109 mmol/L (98-107); COR CA(FOR HYPOALB) 10.1 mg/dL (8.5-10.1); CREATININE 1.14 mg/dL (0.55-1.02); SODIUM 140 mmol/L (136-145); eGFR NON BLACK RACES 49 (>60)
[2019-01-27 05:50] LABS: PLATELET MORPHOLOGY COMMENT NORMAL (NORMAL)
[2019-01-27] MEDS: TORADOL 15 MG VIAL IVP SCH ×4 (05:50→22:47)
[2019-01-27] MEDS: ZOSYN VIAL 3.375 GRAMS 3.375 G in NS 100 ML IV + SPIKE MINIBAG* 100 ML IV SCH ×3 (06:33→21:38)
--- NOTE | 2019-01-27 08:11 | US ---
History: Left neck pain and swelling Study: Ultrasound of the soft tissues of the neck Findings: A left cervical lymph node is demonstrated measuring 8.7 x 3.3 x 8.4 mm. There is a solid left submandibular mass measuring 2.9 x 2.5 x 2.5 cm with some central vascularity no duct dilatation is demonstrated. Impression: Enlarged left submandibular gland Reported By:
[2019-01-27] MEDS: LEVAQUIN PREMIX IV 250 MG 250 MG/50 ML BAG IV SCH (09:40)
[2019-01-27] MEDS: PROCALAMINE 3 % 1,000 ML IV SCH ×2 (09:40→22:08)
--- NOTE | 2019-01-27 10:20 | PCM.PROG ---
Progress Note - Progress Note for Day of Date of Exam: 01/26/19 - Subjective Subjective: WAS ADMITTED FOR SIALADENITIS, LEUKOCYTOSIS, AND FEVER. TODAY, SHE IS LYING IN BED WITH EYES CLOSED ON MORNING ROUNDS. SHE AWAKENS TO VERBAL STIMULI. SHE CONTINUES WITH SWELLING TO THE LEFT SIDE NECK TODAY, HOWEVER, IT HAS SLIGHTLY DECREASED SINCE YESTERDAY. FAMILY REPORTS THAT SHE APPEARS TO BE AGGITATED AT TIMES. SHE HAS BEEN AFEBRILE THROUGHOUT THE NIGHT. HER VITALS THIS MORNING ARE: 98.4-70-20-100%-102/56. LABS WERE OBTAINED. ABNORMAL LAB VALUES INCLUDE THE FOLLOWING: RBC 2.65, HGB 8.4, HCT 25.6, CHLORIDE 108, BUN 28, CREATININE 1.22, TOTAL BILI 0.10, AST 12, ALBUMIN 2.2. BLOOD CULTURES ARE PENDING. SHE IS CURRENTLY RECEIVING IV ZOSYN, TORADOL 15MG IV Q6H, PROCAL, AND IV FLUIDS. TODAY, WE WILL START VALUIM 5MG PO Q8H PRN, LEVAQUIN 250MG IV DAILY, AND TRAZODONE 100MG PO HS. OTHERWISE, WE WILL CONTINUE WITH CURRENT PLAN OF CARE. WE PLAN TO FOLLOW UP WITH AM LABS AND CONTINUE TO MONITOR. - Past Medical Family Social History Past Med/Fam/Surg Hx: No changes since H&P Allergies: Allergies fluoxetine [From Prozac] Allergy (Verified 01/22/19 14:06) haloperidol [From Haldol] Allergy (Verified 01/23/19 17:38) - Review of Systems ROS: No change since H&P - Vital Signs and I&O's Vital Signs: Temperature 98.0 F Pulse Rate [Right Brachial] 67 Respiratory Rate 20 Blood Pressure [Left Arm] 88/50 Blood Pressure [Right Arm] 139/59 Blood Pressure 112/62 O2 Sat by Pulse Oximetry 97 Intake and Output: Intake & Output 01/24/19 01/25/19 01/26/19 01/27/19 11:59 11:59 11:59 11:59 Intake Total 880 / 880 3178 / 3178 1060 / 1060 1680 / 1680 Balance 880 / 880 3178 / 3178 1060 / 1060 1680 / 1680 - Physical Exam Oriented: Unable to test Eyes: Normal Ear: Normal Nose: Normal Throat: Normal Respiratory: Generalized, Diminished Cardiovascular: Normal : Normal Auscultation: Bowel Sounds: Normal Tenderness: Normal Skin: Other (ENLARGED NODE/MASS LEFT SIDE LOWER JAW/NECK) Musculoskeletal: Normal Psychiatric: Normal Mood Description: Calm Affect: Normal Speech Pattern: Unclear, Slurred - Laboratory and Diagnostics Result Diagrams: 01/27/19 05:00 01/27/19 05:00 Labs: 01/23/19 18:26 Blood Blood Culture - Final 01/23/19 18:20 Blood Blood Culture - Preliminary Laboratory WBC 7.1 X10^3/uL (3.6-10.0) 01/27/19 05:00 RBC 2.49 X10^6/uL (3.5-5.4) L 01/27/19 05:00 Hgb 7.9 g/dL (12.0-16.0) L 01/27/19 05:00 Hct 23.3 % (36.0-47.0) L 01/27/19 05:00 MCV 93.6 fL (80.0-100.0) 01/27/19 05:00 MCH 31.6 pg (27.0-34.0) 01/27/19 05:00 MCHC 33.8 g/dL (33.0-35.0) 01/27/19 05:00 RDW 14.9 % (11.6-16.5) 01/27/19 05:00 Plt Count 209 X10^3/uL (150.0-450.0) 01/27/19 05:00 Plt Count Comment Adequate (ADEQUATE) 01/27/19 05:00 MPV 7.5 fL (7.4-11.0) 01/27/19 05:00 Neut % (Auto) 56.3 % (42.0-75.0) 01/27/19 05:00 Lymph % (Auto) 34.2 % (21.0-51.0) 01/27/19 05:00 [place] % (Auto) 5.5 % (0.0-13.0) 01/27/19 05:00 Eos % (Auto) 3.3 % (0.9-2.9) H 01/27/19 05:00 Baso % (Auto) 0.7 % (0.2-1.0) 01/27/19 05:00 Neut # (Auto) 4.0 x10^3/uL (2.2-4.8) 01/27/19 05:00 Lymph # (Auto) 2.4 X10^3/uL (1.3-2.9) 01/27/19 05:00 [place] # (Auto) 0.4 x10^3/uL (0.3-0.8) 01/27/19 05:00 Eos # (Auto) 0.2 x10^3/uL (0.0-0.2) 01/27/19 05:00 Baso # (Auto) 0.0 X10^3/uL (0.0-0.1) 01/27/19 05:00 Absolute Nucleated RBC 0.0 /100WBC 01/27/19 05:00 Plt Morphology Comment Normal (NORMAL) 01/27/19 05:00 RBC Morphology Normal (NORMAL) 01/27/19 05:00 Hypochromasia Slight A 01/25/19 04:45 Sodium 140 mmol/L (136-145) 01/27/19 05:00 Corrected Sodium TNP 01/27/19 05:00 Potassium 4.8 mmol/L (3.5-5.1) 01/27/19 05:00 Chloride 109 mmol/L (98-107) H 01/27/19 05:00 Carbon Dioxide 20.7 mmol/L (21-32) L 01/27/19 05:00 BUN 19 mg/dL (7-18) H 01/27/19 05:00 Creatinine 1.14 mg/dL (0.55-1.02) H 01/27/19 05:00 Est GFR (MDRD) Af Amer 59 (>60) 01/27/19 05:00 Est GFR (MDRD) Non-Af 49 (>60) L 01/27/19 05:00 Glucose 103 mg/dL (65-99) H 01/27/19 05:00 POC Glucose (mg/dL) 115 mg/dL (65-99) H 01/23/19 20:37 Calcium 8.5 mg/dL (8.5-10.1) 01/27/19 05:00 Corrected Calcium 10.1 mg/dL (8.5-10.1) 01/27/19 05:00 Total Bilirubin 0.10 mg/dL (0.2-1.0) L 01/27/19 05:00 AST 13 Units/L (15-37) L 01/27/19 05:00 ALT 19 Units/L (12-78) 01/27/19 05:00 Alkaline Phosphatase 63 Units/L (46-116) 01/27/19 05:00 Total Protein 6.0 g/dL (6.4-8.2) L 01/27/19 05:00 Albumin 2.0 g/dL (3.4-5.0) L 01/27/19 05:00 Globulin 4.0 g/dL (2.5-4.5) 01/27/19 05:00 Albumin/Globulin Ratio 0.5 Ratio (1.1-2.1) L 01/27/19 05:00 Blood Type A NEGATIVE 01/25/19 10:48 Antibody Screen Negative 01/25/19 10:48 - Plan (1) Leukocytosis Status: Acute Qualifiers: Leukocytosis type: other Qualified Code(s): D72.828 - Other elevated white blood cell count Plan: IV FLUIDS, IV LEVAQUIN, IV ZOSYN, CONTINUE TO MONITOR (2) Sialadenitis Status: Acute Plan: IV LEVAQUIN, IV ZOSYN, TORADOL 15MG IV Q6H, CONTINUE TO MONITOR (3) Fever Status: Acute Qualifiers: Fever type: unspecified Qualified Code(s): R50.9 - Fever, unspecified
--- NOTE | 2019-01-27 10:57 | PCM.PROG ---
Progress Note - Progress Note for Day of Date of Exam: 01/27/19 - Subjective Subjective: WAS ADMITTED FOR SIALADENITIS, LEUKOCYTOSIS, AND FEVER. TODAY, SHE IS LYING IN BED WITH EYES CLOSED ON MORNING ROUNDS. SHE AWAKENS TO VERBAL STIMULI. SHE CONTINUES WITH SWELLING TO THE LEFT SIDE NECK. SWELLING CONTINUES TO DECREASE. FAMILY REPORTS THAT SHE CONTINUES TO BE AGGITATED AT TIMES. HER VITALS THIS MORNING ARE: 98.0-67-20-97%-139/59. LABS WERE OBTAINED. ABNORMAL LAB VALUES INCLUDE THE FOLLOWING: RBC 2.49, HGB 7.9, HCT 23.3, CHLORIDE 109, CARBON DIOXIDE 20.7, BUN 19, CREATININE 1.14, GLUCOSE 103, TOTAL BILI 0.10, AST 13, TOTAL PROTEIN 6.0, ALBUMIN 2.0. BLOOD CULTURES ARE PENDING. SHE IS CURRENTLY RECEIVING IV ZOSYN, IV LEVAQUIN, TORADOL 15MG IV Q6H, PROCAL, TRAZOD ONE, VALIUM, AND IV FLUIDS. HOME MEDICATIONS WERE RESUMED. WE WILL CONTINUE WITH CURRENT PLAN OF CARE TODAY. OTHERWISE, WE PLAN TO FOLLOW UP WITH AM LABS AND CONTINUE TO MONITOR. - Past Medical Family Social History Past Med/Fam/Surg Hx: No changes since H&P Allergies: Allergies fluoxetine [From Prozac] Allergy (Verified 01/22/19 14:06) haloperidol [From Haldol] Allergy (Verified 01/23/19 17:38) - Review of Systems ROS: No change since H&P - Vital Signs and I&O's Vital Signs: Temperature 98.0 F Pulse Rate [Right Brachial] 67 Respiratory Rate 20 Blood Pressure [Left Arm] 88/50 Blood Pressure [Right Arm] 139/59 Blood Pressure 112/62 O2 Sat by Pulse Oximetry 97 Intake and Output: Intake & Output 01/24/19 01/25/19 01/26/19 01/27/19 11:59 11:59 11:59 11:59 Intake Total 880 / 880 3178 / 3178 1060 / 1060 1680 / 1680 Balance 880 / 880 3178 / 3178 1060 / 1060 1680 / 1680 - Physical Exam Oriented: Unable to test Eyes: Normal Ear: Normal Nose: Normal Throat: Normal Respiratory: Generalized, Diminished Cardiovascular: Normal : Normal Auscultation: Bowel Sounds: Normal Tenderness: Normal Skin: Other (ENLARGED NODE/MASS LEFT SIDE LOWER JAW/NECK) Musculoskeletal: Normal Psychiatric: Normal Mood Description: Calm Affect: Normal Speech Pattern: Unclear, Slurred - Laboratory and Diagnostics Result Diagrams: 01/27/19 05:00 01/27/19 05:00 Labs: 01/23/19 18:26 Blood Blood Culture - Final 01/23/19 18:20 Blood Blood Culture - Preliminary Laboratory WBC 7.1 X10^3/uL (3.6-10.0) 01/27/19 05:00 RBC 2.49 X10^6/uL (3.5-5.4) L 01/27/19 05:00 Hgb 7.9 g/dL (12.0-16.0) L 01/27/19 05:00 Hct 23.3 % (36.0-47.0) L 01/27/19 05:00 MCV 93.6 fL (80.0-100.0) 01/27/19 05:00 MCH 31.6 pg (27.0-34.0) 01/27/19 05:00 MCHC 33.8 g/dL (33.0-35.0) 01/27/19 05:00 RDW 14.9 % (11.6-16.5) 01/27/19 05:00 Plt Count 209 X10^3/uL (150.0-450.0) 01/27/19 05:00 Plt Count Comment Adequate (ADEQUATE) 01/27/19 05:00 MPV 7.5 fL (7.4-11.0) 01/27/19 05:00 Neut % (Auto) 56.3 % (42.0-75.0) 01/27/19 05:00 Lymph % (Auto) 34.2 % (21.0-51.0) 01/27/19 05:00 [place] % (Auto) 5.5 % (0.0-13.0) 01/27/19 05:00 Eos % (Auto) 3.3 % (0.9-2.9) H 01/27/19 05:00 Baso % (Auto) 0.7 % (0.2-1.0) 01/27/19 05:00 Neut # (Auto) 4.0 x10^3/uL (2.2-4.8) 01/27/19 05:00 Lymph # (Auto) 2.4 X10^3/uL (1.3-2.9) 01/27/19 05:00 [place] # (Auto) 0.4 x10^3/uL (0.3-0.8) 01/27/19 05:00 Eos # (Auto) 0.2 x10^3/uL (0.0-0.2) 01/27/19 05:00 Baso # (Auto) 0.0 X10^3/uL (0.0-0.1) 01/27/19 05:00 Absolute Nucleated RBC 0.0 /100WBC 01/27/19 05:00 Plt Morphology Comment Normal (NORMAL) 01/27/19 05:00 RBC Morphology Normal (NORMAL) 01/27/19 05:00 Hypochromasia Slight A 01/25/19 04:45 Sodium 140 mmol/L (136-145) 01/27/19 05:00 Corrected Sodium TNP 01/27/19 05:00 Potassium 4.8 mmol/L (3.5-5.1) 01/27/19 05:00 Chloride 109 mmol/L (98-107) H 01/27/19 05:00 Carbon Dioxide 20.7 mmol/L (21-32) L 01/27/19 05:00 BUN 19 mg/dL (7-18) H 01/27/19 05:00 Creatinine 1.14 mg/dL (0.55-1.02) H 01/27/19 05:00 Est GFR (MDRD) Af Amer 59 (>60) 01/27/19 05:00 Est GFR (MDRD) Non-Af 49 (>60) L 01/27/19 05:00 Glucose 103 mg/dL (65-99) H 01/27/19 05:00 POC Glucose (mg/dL) 115 mg/dL (65-99) H 01/23/19 20:37 Calcium 8.5 mg/dL (8.5-10.1) 01/27/19 05:00 Corrected Calcium 10.1 mg/dL (8.5-10.1) 01/27/19 05:00 Total Bilirubin 0.10 mg/dL (0.2-1.0) L 01/27/19 05:00 AST 13 Units/L (15-37) L 01/27/19 05:00 ALT 19 Units/L (12-78) 01/27/19 05:00 Alkaline Phosphatase 63 Units/L (46-116) 01/27/19 05:00 Total Protein 6.0 g/dL (6.4-8.2) L 01/27/19 05:00 Albumin 2.0 g/dL (3.4-5.0) L 01/27/19 05:00 Globulin 4.0 g/dL (2.5-4.5) 01/27/19 05:00 Albumin/Globulin Ratio 0.5 Ratio (1.1-2.1) L 01/27/19 05:00 Blood Type A NEGATIVE 01/25/19 10:48 Antibody Screen Negative 01/25/19 10:48 - Plan (1) Leukocytosis Status: Acute Qualifiers: Leukocytosis type: other Qualified Code(s): D72.828 - Other elevated white blood cell count Plan: IV FLUIDS, IV LEVAQUIN, IV ZOSYN, CONTINUE TO MONITOR (2) Sialadenitis Status: Acute Plan: IV LEVAQUIN, IV ZOSYN, TORADOL 15MG IV Q6H, CONTINUE TO MONITOR (3) Fever Status: Acute Qualifiers: Fever type: unspecified Qualified Code(s): R50.9 - Fever, unspecified
[2019-01-27] MEDS: ANTIVERT TAB 25 MG PO SCH ×2 (11:51→12:00)
[2019-01-27] MEDS: SYNTHROID 125 mcg TAB PO SCH ×2 (11:52→12:00)
[2019-01-27] MEDS: TAB-A-VITE PO SCH ×2 (11:52→12:00)
[2019-01-27] MEDS: COLACE CAP 100 MG PO SCH ×2 (11:53→12:00)
[2019-01-27] MEDS: NYSTATIN POWDER TOP SCH ×2 (11:53→21:38)
[2019-01-27] MEDS ORDERED: LEXAPRO ONE (19:47)
[2019-01-27] MEDS: RisperDAL TAB 1 MG PO SCH (21:37)
[2019-01-27] MEDS: LEXAPRO PO SCH (21:37)
[2019-01-27] MEDS: KLONOPIN TAB 0.5 MG PO SCH (21:37)
[2019-01-27] MEDS: ZOCOR TAB 20 MG PO SCH (21:37)
[2019-01-27] MEDS: DESYREL PO SCH (21:38)
[2019-01-27] MEDS: ZYLOPRIM PO SCH (21:38)
[2019-01-27] MEDS: VALIUM PO PRN (21:38)
[2019-01-28 05:31] LABS: BASOPHILS # (AUTO) 0.1 X10^3/uL (0.0-0.1); BASOPHILS % (AUTO) 0.7 % (0.2-1.0); EOSINOPHILS # (AUTO) 0.3 x10^3/uL (0.0-0.2); EOSINOPHILS % (AUTO) 3.6 % (0.9-2.9); HEMATOCRIT 24.8 % (36.0-47.0); HEMOGLOBIN 8.3 g/dL (12.0-16.0); LYMPHOCYTES # (AUTO) 2.6 X10^3/uL (1.3-2.9); LYMPHOCYTES % (AUTO) 33.9 % (21.0-51.0); MEAN CORPUSCULAR HEMOGLOBIN 31.8 pg (27.0-34.0); MEAN CORPUSCULAR HGB CONC 33.4 g/dL (33.0-35.0); MEAN CORPUSCULAR VOLUME 95.2 fL (80.0-100.0); MEAN PLATELET VOLUME 7.8 fL (7.4-11.0); MONOCYTES # (AUTO) 0.4 x10^3/uL (0.3-0.8); MONOCYTES % (AUTO) 5.4 % (0.0-13.0); NEUTROPHILS # (AUTO) 4.3 x10^3/uL (2.2-4.8); NEUTROPHILS % (AUTO) 56.4 % (42.0-75.0); PLATELET COUNT 217 X10^3/uL (150.0-450.0); RED CELL DISTRIBUTION WIDTH 14.9 % (11.6-16.5); WHITE BLOOD COUNT 7.7 X10^3/uL (3.6-10.0)
[2019-01-28 05:41] LABS: ALANINE AMINOTRANSFERASE 16 Units/L (12-78); ALBUMIN 2.1 g/dL (3.4-5.0); ALKALINE PHOSPHATASE 63 Units/L (46-116); ASPARTATE AMINO TRANSFERASE 14 Units/L (15-37); BLOOD UREA NITROGEN 19 mg/dL (7-18); CARBON DIOXIDE 23.7 mmol/L (21-32); CHLORIDE 106 mmol/L (98-107); COR CA(FOR HYPOALB) 10.5 mg/dL (8.5-10.1); CREATININE 1.08 mg/dL (0.55-1.02); SODIUM 138 mmol/L (136-145); TOTAL PROTEIN 6.2 g/dL (6.4-8.2); eGFR NON BLACK RACES 52 (>60)
[2019-01-28] MEDS: TORADOL 15 MG VIAL IVP SCH ×2 (05:48→12:13)
[2019-01-28] MEDS: ZOSYN VIAL 3.375 GRAMS 3.375 G in NS 100 ML IV + SPIKE MINIBAG* 100 ML IV SCH (05:48)
[2019-01-28] MEDS: LEVAQUIN PREMIX IV 250 MG 250 MG/50 ML BAG IV SCH (08:57)
[2019-01-28] MEDS: SYNTHROID 125 mcg TAB PO SCH (09:05)
[2019-01-28] MEDS: COLACE CAP 100 MG PO SCH (09:05)
[2019-01-28] MEDS: TAB-A-VITE PO SCH (09:05)
[2019-01-28] MEDS: ANTIVERT TAB 25 MG PO SCH (09:05)
[2019-01-28] MEDS: NYSTATIN POWDER TOP SCH (09:05)
[2019-01-28] MEDS ORDERED: NS 250 ML IV 250 ML IV ONE (09:43)
[2019-01-28 12:11] VITALS: BP 143/69
== END 2019-01-28 14:29 | DRG 156 ==
LOC: MED/SURG 17:29
PROVIDERS: ADMIT Internal Medicine; ATTEND Internal Medicine
CPT/HCPCS: 36415; 76536; 80053; 85025; 86850; 86900; 86901; 87040; 94760; A4216; A4222; B5200; J1885; J1956; J2543; J7050

== ENCOUNTER 2019-03-03 17:12 | Inpatient (IN) ==
[2019-03-03 19:19] LABS: BASOPHILS % (AUTO) 0.4 % (0.2-1.0); EOSINOPHILS # (AUTO) 0.1 x10^3/uL (0.0-0.2); EOSINOPHILS % (AUTO) 1.9 % (0.9-2.9); HEMATOCRIT 27.1 % (36.0-47.0); LYMPHOCYTES % (AUTO) 27.4 % (21.0-51.0); MEAN CORPUSCULAR HEMOGLOBIN 31.9 pg (27.0-34.0); MEAN CORPUSCULAR HGB CONC 33.2 g/dL (33.0-35.0); MEAN CORPUSCULAR VOLUME 96.3 fL (80.0-100.0); MEAN PLATELET VOLUME 6.8 fL (7.4-11.0); MONOCYTES # (AUTO) 0.4 x10^3/uL (0.3-0.8); MONOCYTES % (AUTO) 5.4 % (0.0-13.0); NEUTROPHILS # (AUTO) 4.8 x10^3/uL (2.2-4.8); NEUTROPHILS % (AUTO) 64.9 % (42.0-75.0); PLATELET COUNT 229 X10^3/uL (150.0-450.0); RED BLOOD COUNT 2.81 X10^6/uL (3.5-5.4); RED CELL DISTRIBUTION WIDTH 15.4 % (11.6-16.5); WHITE BLOOD COUNT 7.4 X10^3/uL (3.6-10.0)
[2019-03-03 19:34] LABS: ALBUMIN 3.2 g/dL (3.4-5.0); CALCIUM 9.1 mg/dL (8.5-10.1); CARBON DIOXIDE 19.5 mmol/L (21-32); COR CA(FOR HYPOALB) 9.7 mg/dL (8.5-10.1); CREATININE 2.32 mg/dL (0.55-1.02); TOTAL PROTEIN 7.5 g/dL (6.4-8.2)
[2019-03-03] MEDS: NS 1000 ML 1,000 ML IV SCH (20:08)
[2019-03-03 20:17] VITALS: BMI 29.7
[2019-03-03] MEDS ORDERED: KLONOPIN TAB 0.5 MG PO ONE (22:05)
[2019-03-04] MEDS: NS 1000 ML 1,000 ML IV SCH ×3 (04:59→23:58)
[2019-03-04 05:35] LABS: BASOPHILS % (AUTO) 0.2 % (0.2-1.0); EOSINOPHILS # (AUTO) 0.1 x10^3/uL (0.0-0.2); EOSINOPHILS % (AUTO) 1.9 % (0.9-2.9); HEMATOCRIT 21.7 % (36.0-47.0); HEMOGLOBIN 7.3 g/dL (12.0-16.0); LYMPHOCYTES # (AUTO) 2.4 X10^3/uL (1.3-2.9); LYMPHOCYTES % (AUTO) 33.7 % (21.0-51.0); MEAN CORPUSCULAR HEMOGLOBIN 32.1 pg (27.0-34.0); MEAN CORPUSCULAR HGB CONC 33.4 g/dL (33.0-35.0); MEAN CORPUSCULAR VOLUME 96.1 fL (80.0-100.0); MEAN PLATELET VOLUME 7.7 fL (7.4-11.0); MONOCYTES # (AUTO) 0.4 x10^3/uL (0.3-0.8); MONOCYTES % (AUTO) 5.2 % (0.0-13.0); NEUTROPHILS # (AUTO) 4.2 x10^3/uL (2.2-4.8); PLATELET COUNT 190 X10^3/uL (150.0-450.0); RED BLOOD COUNT 2.26 X10^6/uL (3.5-5.4); RED CELL DISTRIBUTION WIDTH 15.5 % (11.6-16.5); WHITE BLOOD COUNT 7.2 X10^3/uL (3.6-10.0)
[2019-03-04 05:40] LABS: ALANINE AMINOTRANSFERASE 12 Units/L (12-78); ALBUMIN 2.5 g/dL (3.4-5.0); ALKALINE PHOSPHATASE 52 Units/L (46-116); ASPARTATE AMINO TRANSFERASE 9 Units/L (15-37); BLOOD UREA NITROGEN 44 mg/dL (7-18); CALCIUM 8.3 mg/dL (8.5-10.1); CARBON DIOXIDE 22.6 mmol/L (21-32); CHLORIDE 109 mmol/L (98-107); COR CA(FOR HYPOALB) 9.5 mg/dL (8.5-10.1); SODIUM 140 mmol/L (136-145); TOTAL PROTEIN 6.1 g/dL (6.4-8.2); eGFR NON BLACK RACES 23 (>60)
[2019-03-04 05:58] LABS: PLATELET MORPHOLOGY COMMENT NORMAL (NORMAL)
[2019-03-04 06:08] LABS: BILIRUBIN,URINE NEGATIVE (NEGATIVE); BLOOD/HEMOGLOBIN,URINE 2+ (NEGATIVE); GLUCOSE, URINE NEGATIVE (NEGATIVE); KETONES,URINE NEGATIVE (NEGATIVE); LEUKOCYTE ESTERASE ,URINE 3+ (NEGATIVE); NITRITES,URINE NEGATIVE (NEGATIVE); PROTEIN,URINE 1+ (NEGATIVE); UROBILINOGEN,URINE NORMAL (NORMAL)
[2019-03-04 06:18] LABS: APPEARANCE,URINE CLOUDY (CLEAR); COLOR,URINE YELLOW (YELLOW)
[2019-03-04 06:19] LABS: AMORPHOUS SEDIMENT,UR 1+ /HPF (NEGATIVE); BACTERIA,URINE TRACE /HPF (NEGATIVE); SQUAMOUS EPITHELIAL CELL,UR MANY /HPF (NEGATIVE)
[2019-03-04] MEDS ORDERED: MILK OF MAGNESIA PO PRN (09:29)
[2019-03-04] MEDS ORDERED: FERROUS FUMARATE 325 MG PO SCH (09:30)
[2019-03-04] MEDS: ROCEPHIN VIAL 1 GRAM 1 G in NS 100 ML IV + SPIKE MINIBAG* 100 ML IV SCH (10:49)
[2019-03-04] MEDS: TAB-A-VITE PO SCH (10:52)
[2019-03-04] MEDS: COLACE CAP 100 MG PO SCH (10:52)
[2019-03-04] MEDS: MIRALAX POWDER (1 DOSE 17 G) PO SCH (10:53)
[2019-03-04] MEDS: SYNTHROID 125 mcg TAB PO SCH (10:53)
[2019-03-04] MEDS: ANTIVERT TAB 25 MG PO SCH (10:53)
[2019-03-04] MEDS: NYSTATIN POWDER TOP SCH ×2 (10:53→20:31)
[2019-03-04] MEDS: ZESTRIL TAB 20 MG PO SCH (10:54)
--- NOTE | 2019-03-04 11:06 | DR.H&P ---
H&P - History & Physical for Day of: H&P Date: 03/03/19 - Chief Complaint Chief Complaint: DISORIENTATION, DROWSINESS, ABNORMAL LABS - History of Present Illness History of Present Illness: IS A 78 YEAR OLD PATIENT OF OURS. SHE IS A RESIDENT OF [facility]. ALF STAFF REPORTED THAT PATIENT HAD BEEN DISORIENTED AND DROWSY. OUTPATIENT LABS WERE OBTAINED AND REVEALED THE FOLLOWING ABNORMAL VALUES: RBC 2.73, HGB 8.7, HCT 26.5, POTASSIUM 6.2, BUN 46, CREATININE 2.30, TRANSFERRIN 146, FERRITIN 687, AST 10, ALBUMIN 3.1, HDL 29, BITAMIN B12 >2000, TSH 0.264. SHE WAS DIRECT ADMITTED FOR FURTHER EVALUATION AND TREATMENT OF HYPERKALEMIA AND DEHYDRATION. ON ADMISSION, A URINALYSIS WAS OBTAINED AND REVEALED: WBC 20-30, RBC 5-10, BACTERIA TRACE, LEUKOCYTES 3+. WE STARTED NORMAL SALINE AT 125ML/HR, ROCEPHIN 1G IV DAILY, AND RESUMED HER HOME MEDICATIONS. OTHERWISE, WE WILL FOLLOW UP WITH AM LABS AND CONTINUE TO MONITOR. - Past Medical History Past Medical History: Coronary Artery Disease, Hypertension, Dyslipidemia, Alzheimers, Anxiety, Hypothyroidism, Arthritis, Gout, CHF - Past Surgical History Surgical History: - Family History Family Medical History: Cancer, Coronary Artery Disease - Social History Alcohol Use: None Drug Use: None - Medications Home Medications: fluoxetine [From Prozac] Allergy (Verified 01/22/19 14:06) haloperidol [From Haldol] Allergy (Verified 01/23/19 17:38) CONTINUE taking the following medications ferrous fumarate [Ferrocite] 325 mg PO DAILY 03/04/19 [History] - Review of Systems Constitutional: Weakness Eyes: No Symptoms Reported ENT: No Symptoms Reported Respiratory: No Symptoms Reported Cardiovascular: No Symptoms Reported Gastrointestinal: No Symptoms Reported Genitourinary: No Symptoms Reported Musculoskeletal: No Symptoms Reported Skin: No Symptoms Reported Neurological: Weakness, Confusion - Physical Exam Vital Signs: Temperature 99.3 F Pulse Rate [Right Radial] 70 Respiratory Rate 20 Blood Pressure [Right Arm] 92/46 Blood Pressure [Left Arm] 107/52 O2 Sat by Pulse Oximetry 98 Oriented: Not Oriented Eyes: Normal Ear: Normal Nose: Normal Throat: Normal Respiratory: Diminished Throughout Cardiovascular: Normal : Normal Auscultation: Bowel Sounds: Normal Palpation: Normal Tenderness: Normal Skin: Normal Musculoskeletal: Normal Psychiatric: Normal Mood Description: Calm Affect: Normal Speech Pattern: Inappropriate - Assessment/Plan (1) Dehydration Status: Acute Plan: NORMAL SALINE AT 125ML/HR, CONTINUE TO MONITOR (2) Hyperkalemia Status: Acute (3) UTI (urinary tract infection) Qualifiers: Urinary tract infection type: acute cystitis Hematuria presence: with hematuria Qualified Code(s): N30.01 - Acute cystitis with hematuria Status: Acute Plan: ROCEPHIN 1G IV DAILY, CONTINUE TO MONITOR - Allergies Allergies/Adverse Reactions: Allergies Allergy/AdvReac Type Severity Reaction Status Date / Time fluoxetine [From Prozac] Allergy Verified 01/22/19 14:06 haloperidol [From Haldol] Allergy Verified 01/23/19 17:38
[2019-03-04 17:21] LABS: HEMOGLOBIN 7.7 g/dL (12.0-16.0)
[2019-03-04] MEDS ORDERED: LEXAPRO ONE (19:20)
[2019-03-04] MEDS: DESYREL PO SCH (20:30)
[2019-03-04] MEDS: LEXAPRO PO SCH (20:31)
[2019-03-04] MEDS: KLONOPIN TAB 0.5 MG PO SCH ×2 (20:31→23:58)
[2019-03-04] MEDS: ZOCOR TAB 20 MG PO SCH (20:32)
[2019-03-04] MEDS: ZYLOPRIM PO SCH (20:32)
[2019-03-04] MEDS: RisperDAL TAB 1 MG PO SCH (20:32)
[2019-03-05] MEDS: NS 1000 ML 1,000 ML IV SCH ×4 (04:50→20:28)
[2019-03-05 05:20] LABS: BASOPHILS % (AUTO) 0.6 % (0.2-1.0); EOSINOPHILS # (AUTO) 0.2 x10^3/uL (0.0-0.2); EOSINOPHILS % (AUTO) 2.5 % (0.9-2.9); HEMATOCRIT 23.4 % (36.0-47.0); HEMOGLOBIN 7.6 g/dL (12.0-16.0); LYMPHOCYTES # (AUTO) 2.7 X10^3/uL (1.3-2.9); LYMPHOCYTES % (AUTO) 37.8 % (21.0-51.0); MEAN CORPUSCULAR HEMOGLOBIN 31.5 pg (27.0-34.0); MEAN CORPUSCULAR HGB CONC 32.6 g/dL (33.0-35.0); MEAN CORPUSCULAR VOLUME 96.8 fL (80.0-100.0); MEAN PLATELET VOLUME 7.8 fL (7.4-11.0); MONOCYTES # (AUTO) 0.3 x10^3/uL (0.3-0.8); MONOCYTES % (AUTO) 4.8 % (0.0-13.0); NEUTROPHILS % (AUTO) 54.3 % (42.0-75.0); PLATELET COUNT 203 X10^3/uL (150.0-450.0); RED BLOOD COUNT 2.42 X10^6/uL (3.5-5.4); RED CELL DISTRIBUTION WIDTH 15.5 % (11.6-16.5); WHITE BLOOD COUNT 7.3 X10^3/uL (3.6-10.0)
[2019-03-05 05:37] LABS: ALANINE AMINOTRANSFERASE 13 Units/L (12-78); ALBUMIN 2.6 g/dL (3.4-5.0); ALKALINE PHOSPHATASE 57 Units/L (46-116); ASPARTATE AMINO TRANSFERASE 9 Units/L (15-37); BLOOD UREA NITROGEN 30 mg/dL (7-18); CALCIUM 8.5 mg/dL (8.5-10.1); CARBON DIOXIDE 20.2 mmol/L (21-32); CHLORIDE 112 mmol/L (98-107); COR CA(FOR HYPOALB) 9.6 mg/dL (8.5-10.1); SODIUM 143 mmol/L (136-145); TOTAL PROTEIN 6.4 g/dL (6.4-8.2); eGFR NON BLACK RACES 36 (>60)
[2019-03-05 05:53] LABS: PLATELET MORPHOLOGY COMMENT NORMAL (NORMAL)
[2019-03-05] MEDS ORDERED: PATIENT'S HOME MEDICATION (Levocetirizine 5 MG) PO SCH (09:00)
[2019-03-05] MEDS ORDERED: ZESTRIL TAB 20 MG ONE (09:12)
[2019-03-05] MEDS: ANTIVERT TAB 25 MG PO SCH (09:15)
[2019-03-05] MEDS: HEMOCYTE-PLUS PO SCH (09:15)
[2019-03-05] MEDS: ROCEPHIN VIAL 1 GRAM 1 G in NS 100 ML IV + SPIKE MINIBAG* 100 ML IV SCH (09:16)
[2019-03-05] MEDS: COLACE CAP 100 MG PO SCH (09:16)
[2019-03-05] MEDS: SYNTHROID 125 mcg TAB PO SCH (09:16)
[2019-03-05] MEDS: TAB-A-VITE PO SCH (09:16)
[2019-03-05] MEDS: ZESTRIL TAB 20 MG PO SCH (09:16)
[2019-03-05] MEDS: NYSTATIN POWDER TOP SCH ×2 (09:16→20:29)
[2019-03-05] MEDS: MIRALAX POWDER (1 DOSE 17 G) PO SCH (09:36)
[2019-03-05] MEDS ORDERED: PROCRIT or EPOGEN VIAL 10,000 UNITS SC ONE (09:59)
[2019-03-05] MEDS ORDERED: BENADRYL INJ 50 MG VIAL IVP ONE (10:00)
[2019-03-05] MEDS ORDERED: TYLENOL 325 MG TAB PO ONE (10:00)
[2019-03-05] MEDS ORDERED: NS 500 ML IV 500 ML IV ONE ×2 (11:28→17:06)
[2019-03-05] MEDS ORDERED: PHARMACY CONSULT LTC MEDICATIONS XX SCH (15:00)
[2019-03-05] MEDS: LASIX IVP PRN ×2 (17:15→22:00)
--- NOTE | 2019-03-05 18:55 | PCM.PROG ---
Progress Note - Progress Note for Day of Date of Exam: 03/05/19 - Subjective Subjective: WAS ADMITTED FOR DEHYDRATION, UTI, AND HYPERKALEMIA. TODAY, SHE IS LYING IN BED WITH EYES CLOSED ON MORNING ROUNDS. FAMILY REPORTS THAT SHE HAS BEEN RESTLESS AND DISORIENTED THROUGHOUT THE NIGHT. ON EXAMINATION, HEART IS REGULAR IN RATE AND RHYTHM. BILATERAL LUNGS ARE NOTED WITH DIMINISHED LUNG SOUNDS THROUGHOUT. ABDOMEN IS ROUND, SOFT, AND NON-TENDER WITH NORMAL BOWEL SOUNDS THROUGHOUT. HER VITALS THIS MORNING ARE: 98.0-82-20-93%-133/50. LABS WERE OBTAINED. ABNORMAL LAB VALUES INCLUDE THE FOLLOWING: RBC 2.42, HGB 7.6, HCT 23.4, POTASSIUM 5.6, CHLORIDE 112, CARBON DIOIXDE 20.2, BUN 30, CREATININE 1.50, TOTAL BILI 0.10, AST 9, ALUBMIN 2.6. STOOLS ARE POSITIVE FOR OCCULT BLOOD. TODAY, WE WILL TRANSFUSE TWO UNITS OF PACKED RED BLOOD CELLS, CONSULT GI, AND ADMINISTER PROCRIT 5000 UNITS SC X 1 DOSE. OTHERWISE, WE WILL FOLLOW UP WITH AM LABS AND CONTINUE TO MONITOR. - Past Medical Family Social History Past Med/Fam/Surg Hx: No changes since H&P Allergies: Allergies fluoxetine [From Prozac] Allergy (Verified 01/22/19 14:06) haloperidol [From Haldol] Allergy (Verified 01/23/19 17:38) - Review of Systems ROS: No change since H&P - Vital Signs and I&O's Vital Signs: Temperature 100.5 F Pulse Rate [Right Radial] 67 Respiratory Rate 20 Blood Pressure [Right Arm] 128/57 Blood Pressure [Left Arm] 107/52 O2 Sat by Pulse Oximetry 100 Intake and Output: Intake & Output 03/03/19 03/04/19 03/05/19 03/06/19 11:59 11:59 11:59 11:59 Intake Total 585 / 585 2200 / 2200 1475 / 1475 Balance 585 / 585 2200 / 2200 1475 / 1475 - Physical Exam Oriented: Not Oriented Eyes: Normal Ear: Normal Nose: Normal Throat: Normal Respiratory: Generalized, Diminished Cardiovascular: Normal : Normal Auscultation: Bowel Sounds: Normal Palpation: Normal Tenderness: Normal Skin: Normal Musculoskeletal: Normal Psychiatric: Normal Mood Description: Calm Affect: Normal Speech Pattern: Unclear - Laboratory and Diagnostics Result Diagrams: 03/05/19 04:33 03/05/19 04:33 Labs: 03/04/19 05:53 Urine,Catheterized Urine Culture - Final Laboratory WBC 7.3 X10^3/uL (3.6-10.0) 03/05/19 04:33 RBC 2.42 X10^6/uL (3.5-5.4) L 03/05/19 04:33 Hgb 7.6 g/dL (12.0-16.0) L 03/05/19 04:33 Hct 23.4 % (36.0-47.0) L 03/05/19 04:33 MCV 96.8 fL (80.0-100.0) 03/05/19 04:33 MCH 31.5 pg (27.0-34.0) 03/05/19 04:33 MCHC 32.6 g/dL (33.0-35.0) L 03/05/19 04:33 RDW 15.5 % (11.6-16.5) 03/05/19 04:33 Plt Count 203 X10^3/uL (150.0-450.0) 03/05/19 04:33 Plt Count Comment Adequate (ADEQUATE) 03/05/19 04:33 MPV 7.8 fL (7.4-11.0) 03/05/19 04:33 Neut % (Auto) 54.3 % (42.0-75.0) 03/05/19 04:33 Lymph % (Auto) 37.8 % (21.0-51.0) 03/05/19 04:33 [place] % (Auto) 4.8 % (0.0-13.0) 03/05/19 04:33 Eos % (Auto) 2.5 % (0.9-2.9) 03/05/19 04:33 Baso % (Auto) 0.6 % (0.2-1.0) 03/05/19 04:33 Neut # (Auto) 4.0 x10^3/uL (2.2-4.8) 03/05/19 04:33 Lymph # (Auto) 2.7 X10^3/uL (1.3-2.9) 03/05/19 04:33 [place] # (Auto) 0.3 x10^3/uL (0.3-0.8) 03/05/19 04:33 Eos # (Auto) 0.2 x10^3/uL (0.0-0.2) 03/05/19 04:33 Baso # (Auto) 0.0 X10^3/uL (0.0-0.1) 03/05/19 04:33 Absolute Nucleated RBC 0.1 /100WBC 03/05/19 04:33 Plt Morphology Comment Normal (NORMAL) 03/05/19 04:33 RBC Morphology Normal (NORMAL) 03/05/19 04:33 Sodium 143 mmol/L (136-145) 03/05/19 04:33 Corrected Sodium TNP 03/05/19 04:33 Potassium 5.6 mmol/L (3.5-5.1) H 03/05/19 04:33 Chloride 112 mmol/L (98-107) H 03/05/19 04:33 Carbon Dioxide 20.2 mmol/L (21-32) L 03/05/19 04:33 BUN 30 mg/dL (7-18) H 03/05/19 04:33 Creatinine 1.50 mg/dL (0.55-1.02) H 03/05/19 04:33 Est GFR (MDRD) Af Amer 43 (>60) L 03/05/19 04:33 Est GFR (MDRD) Non-Af 36 (>60) L 03/05/19 04:33 Glucose 93 mg/dL (65-99) 03/05/19 04:33 Calcium 8.5 mg/dL (8.5-10.1) 03/05/19 04:33 Corrected Calcium 9.6 mg/dL (8.5-10.1) 03/05/19 04:33 Total Bilirubin 0.10 mg/dL (0.2-1.0) L 03/05/19 04:33 AST 9 Units/L (15-37) L 03/05/19 04:33 ALT 13 Units/L (12-78) 03/05/19 04:33 Alkaline Phosphatase 57 Units/L (46-116) 03/05/19 04:33 Total Protein 6.4 g/dL (6.4-8.2) 03/05/19 04:33 Albumin 2.6 g/dL (3.4-5.0) L 03/05/19 04:33 Globulin 3.8 g/dL (2.5-4.5) 03/05/19 04:33 Albumin/Globulin Ratio 0.7 Ratio (1.1-2.1) L 03/05/19 04:33 Specimen Type Catherized urine 03/04/19 05:53 Urine Color Yellow (YELLOW) 03/04/19 05:53 Urine Appearance Cloudy (CLEAR) 03/04/19 05:53 Urine pH 5.0 (5.0 - 8.0) 03/04/19 05:53 Ur Specific [place] 1.020 (1.000-1.030) 03/04/19 05:53 Urine Protein 1+ (NEGATIVE) 03/04/19 05:53 Urine Glucose (UA) Negative (NEGATIVE) 03/04/19 05:53 Urine Ketones Negative (NEGATIVE) 03/04/19 05:53 Urine Occult Blood 2+ (NEGATIVE) 03/04/19 05:53 Urine Nitrite Negative (NEGATIVE) 03/04/19 05:53 Urine Bilirubin Negative (NEGATIVE) 03/04/19 05:53 Urine Urobilinogen Normal (NORMAL) 03/04/19 05:53 Ur Leukocyte Esterase 3+ (NEGATIVE) 03/04/19 05:53 Urine RBC 5-10 /HPF (0-3) A 03/04/19 05:53 Urine WBC 20-30 /HPF (0-5) A 03/04/19 05:53 Ur Squamous Epith Cells Many /HPF (NEGATIVE) 03/04/19 05:53 Amorphous Sediment 1+ /HPF (NEGATIVE) 03/04/19 05:53 Urine Bacteria Trace /HPF (NEGATIVE) 03/04/19 05:53 Ur Culture Indicated? Yes/culture set up 03/04/19 05:53 Stool Description 2g black tarry 03/04/19 15:55 Stl Occult Blood (IFOB) Positive (NEGATIVE) A 03/04/19 15:55 Blood Type A NEGATIVE 03/04/19 09:32 Antibody Screen Negative 03/04/19 09:32 Crossmatch See Detail 03/04/19 09:32 - Plan (1) Dehydration Status: Acute Plan: NORMAL SALINE AT 125ML/HR, CONTINUE TO MONITOR (2) Hyperkalemia Status: Acute (3) UTI (urinary tract infection) Status: Acute Qualifiers: Urinary tract infection type: acute cystitis Hematuria presence: with hematuria Qualified Code(s): N30.01 - Acute cystitis with hematuria Plan: ROCEPHIN 1G IV DAILY, CONTINUE TO MONITOR (4) Anemia Status: Acute Qualifiers: Anemia type: iron deficiency Iron deficiency anemia type: chronic blood loss Qualified Code(s): D50.0 - Iron deficiency anemia secondary to blood loss (chronic) Plan: TRANSFUSE TWO UNITS PRBC, CONSULT GI, PROCRIT 5000 UNITS SC X 1 DOSE
[2019-03-05] MEDS ORDERED: LEXAPRO ONE (20:22)
[2019-03-05] MEDS: DESYREL PO SCH (20:27)
[2019-03-05] MEDS: KLONOPIN TAB 0.5 MG PO SCH (20:28)
[2019-03-05] MEDS: ZOCOR TAB 20 MG PO SCH (20:28)
[2019-03-05] MEDS: ZYLOPRIM PO SCH (20:28)
[2019-03-05] MEDS: LEXAPRO PO SCH (20:28)
[2019-03-05] MEDS: RisperDAL TAB 1 MG PO SCH (20:28)
[2019-03-05 22:19] LABS: HEMATOCRIT 32.3 % (36.0-47.0); HEMOGLOBIN 10.9 g/dL (12.0-16.0)
[2019-03-06] MEDS: NS 1000 ML 1,000 ML IV SCH ×2 (04:58→13:26)
[2019-03-06 05:42] LABS: BASOPHILS % (AUTO) 0.4 % (0.2-1.0); EOSINOPHILS # (AUTO) 0.2 x10^3/uL (0.0-0.2); HEMATOCRIT 29.6 % (36.0-47.0); LYMPHOCYTES # (AUTO) 2.7 X10^3/uL (1.3-2.9); MEAN CORPUSCULAR HEMOGLOBIN 30.9 pg (27.0-34.0); MEAN CORPUSCULAR HGB CONC 33.8 g/dL (33.0-35.0); MEAN CORPUSCULAR VOLUME 91.4 fL (80.0-100.0); MEAN PLATELET VOLUME 7.1 fL (7.4-11.0); MONOCYTES # (AUTO) 0.4 x10^3/uL (0.3-0.8); NEUTROPHILS % (AUTO) 54.6 % (42.0-75.0); PLATELET COUNT 202 X10^3/uL (150.0-450.0); RED BLOOD COUNT 3.24 X10^6/uL (3.5-5.4); RED CELL DISTRIBUTION WIDTH 17.1 % (11.6-16.5); WHITE BLOOD COUNT 7.4 X10^3/uL (3.6-10.0)
[2019-03-06 06:05] LABS: ALANINE AMINOTRANSFERASE 12 Units/L (12-78); ALBUMIN 2.6 g/dL (3.4-5.0); ALKALINE PHOSPHATASE 57 Units/L (46-116); ASPARTATE AMINO TRANSFERASE 9 Units/L (15-37); BLOOD UREA NITROGEN 20 mg/dL (7-18); CALCIUM 8.8 mg/dL (8.5-10.1); CARBON DIOXIDE 21.4 mmol/L (21-32); CHLORIDE 112 mmol/L (98-107); COR CA(FOR HYPOALB) 9.9 mg/dL (8.5-10.1); CREATININE 1.31 mg/dL (0.55-1.02); SODIUM 142 mmol/L (136-145); TOTAL PROTEIN 6.4 g/dL (6.4-8.2); eGFR NON BLACK RACES 42 (>60)
--- NOTE | 2019-03-06 08:58 | DR.CONSULT ---
Consult - Consultation for Day of: Date: 03/05/19 - Chief Complaint Chief Complaint: Patient referred for anemia. Patient with AMS unable to answer questions appropriately. - History of Present Illness History of Present Illness: Patient is a 78 yo female who was referred for anemia. Patient with AMS unable to answer questions appropriately. Daughter at bedside states she has been having melena for 1 week. last large melanotic stool today. States that she does complaints occasionally of abdominal pain. Hgb 7.6 Pateint currently recieving blood transfusion. Hct 23.4, BUN 30 Creatinine 1.5. Hemoccult positive. Daughter states patient has had colon and EGD a long time ago in [place]. - Past Medical History Past Medical History: Coronary Artery Disease, Hypertension, Dyslipidemia, Alzheimers, Anxiety, Hypothyroidism, Arthritis, Gout, CHF - Past Surgical History Surgical History: - Family History Family Medical History: Cancer, Coronary Artery Disease - Social History Alcohol Use: None Drug Use: None - Medications Home Medications: fluoxetine [From Prozac] Allergy (Verified 01/22/19 14:06) haloperidol [From Haldol] Allergy (Verified 01/23/19 17:38) CONTINUE taking the following medications ferrous fumarate [Ferrocite] 325 mg PO DAILY 03/04/19 [History] megestrol 20 mg PO BID 03/05/19 [History] - Review of Systems Gastrointestinal: See HPI (Unable to obtain due to AMS) - Physical Exam Vital Signs: Temperature 98.7 F Pulse Rate [Right Radial] 61 Respiratory Rate 20 Blood Pressure [Right Arm] 138/60 Blood Pressure [Left Arm] 107/52 O2 Sat by Pulse Oximetry 98 Oriented: Not Oriented Eyes: Normal Ear: Normal Nose: Normal Throat: Normal Respiratory: Clear Throughout Cardiovascular: Normal Auscultation: Bowel Sounds: Normal Palpation: Normal, Other (no distention). negative: Spleen Enlarged, Liver Enlarged, Mass Pulsatile Tenderness: Normal (no tenderness) Skin: Normal Musculoskeletal: Normal Psychiatric: Normal Mood Description: Calm Affect: Normal Speech Pattern: Inappropriate - Plan Plan: Assessment. 1. Anemia, Occult GI Bleed. Plan. 1. Montior Hgb, Transfuse as need, protonix IV, EGD in am. Plan reviewed with Dr. Oliveros - Allergies Allergies/Adverse Reactions: Allergies Allergy/AdvReac Type Severity Reaction Status Date / Time fluoxetine [From Prozac] Allergy Verified 01/22/19 14:06 haloperidol [From Haldol] Allergy Verified 01/23/19 17:38
[2019-03-06] MEDS ORDERED: PROTONIX INJ 40 MG VIAL IVP SCH (09:00)
[2019-03-06] MEDS: ROCEPHIN VIAL 1 GRAM 1 G in NS 100 ML IV + SPIKE MINIBAG* 100 ML IV SCH (09:15)
[2019-03-06] MEDS ORDERED: DIPRIVAN VIAL 20 ML ONE (12:05)
[2019-03-06 12:48] LABS: BILIRUBIN,URINE NEGATIVE (NEGATIVE); BLOOD/HEMOGLOBIN,URINE 2+ (NEGATIVE); GLUCOSE, URINE NEGATIVE (NEGATIVE); KETONES,URINE NEGATIVE (NEGATIVE); LEUKOCYTE ESTERASE ,URINE 1+ (NEGATIVE); NITRITES,URINE NEGATIVE (NEGATIVE); PROTEIN,URINE NEGATIVE (NEGATIVE); UROBILINOGEN,URINE NORMAL (NORMAL)
[2019-03-06 13:00] LABS: APPEARANCE,URINE SLIGHTLY HAZY (CLEAR); COLOR,URINE YELLOW (YELLOW)
[2019-03-06 13:01] LABS: BACTERIA,URINE TRACE /HPF (NEGATIVE); SQUAMOUS EPITHELIAL CELL,UR MANY /HPF (NEGATIVE)
[2019-03-06 13:06] VITALS: BP 136/68
[2019-03-06] MEDS: COLACE CAP 100 MG PO SCH (13:24)
[2019-03-06] MEDS: MIRALAX POWDER (1 DOSE 17 G) PO SCH (13:24)
[2019-03-06] MEDS: ANTIVERT TAB 25 MG PO SCH (13:24)
[2019-03-06] MEDS: TAB-A-VITE PO SCH (13:25)
[2019-03-06] MEDS: ZESTRIL TAB 20 MG PO SCH (13:26)
[2019-03-06] MEDS: HEMOCYTE-PLUS PO SCH (13:26)
[2019-03-06] MEDS: NYSTATIN POWDER TOP SCH (13:27)
[2019-03-06] MEDS: SYNTHROID 125 mcg TAB PO SCH (14:13)
[2019-03-06] MEDS ORDERED: STERILE WATER IRRIGATION IR ONE (15:03)
[2019-03-06] MEDS ORDERED: PROTONIX TAB 40 MG PO SCH (21:00)
== END 2019-03-06 14:35 | DRG 690 ==
LOC: MED/SURG 17:49
PROVIDERS: ADMIT Internal Medicine; ATTEND Internal Medicine
DX: R13.11 Dysphagia, oral phase; K31.7 Polyp of stomach and duodenum; E86.0 Dehydration; I25.10 Atherosclerotic heart disease of native coronary artery without angina pectoris; B96.29 Other Escherichia coli [E. coli] as the cause of diseases classified elsewhere; I10 Essential (primary) hypertension; Z74.01 Bed confinement status; E03.8 Other specified hypothyroidism; K29.60 Other gastritis without bleeding; N30.01 Acute cystitis with hematuria; E78.2 Mixed hyperlipidemia; E87.5 Hyperkalemia; F41.8 Other specified anxiety disorders; K20.8 Other esophagitis; D50.0 Iron deficiency anemia secondary to blood loss (chronic); R40.4 Transient alteration of awareness; K92.1 Melena; R94.4 Abnormal results of kidney function studies
CPT/HCPCS: 36415; 36430; 80053; 81001; 82270; 85014; 85018; 85025; 86850; 86900; 86901; 86922; 87086; 87088; 87186; 88305; 99100; A4216; A4217; A4222; P9016; J0696; J0885; J1200; J1940; J2704; J3490; J7030; J7050

== ENCOUNTER 2019-06-11 14:00 | Inpatient (IN) ==
[2019-06-11] MEDS ORDERED: XOPENEX 1.25 MG/3 ML NEBULE NEB PRN ×3 (15:26→17:50)
[2019-06-11] MEDS ORDERED: LEVAQUIN PREMIX IV 750 MG 750 MG/150 ML BAG IV SCH (16:10)
[2019-06-11] MEDS ORDERED: TUSSIONEX PENNKINETIC SUSP PO PRN (16:10)
[2019-06-11 16:45] LABS: BILIRUBIN,URINE NEGATIVE (NEGATIVE); BLOOD/HEMOGLOBIN,URINE 2+ (NEGATIVE); GLUCOSE, URINE NEGATIVE (NEGATIVE); KETONES,URINE NEGATIVE (NEGATIVE); LEUKOCYTE ESTERASE ,URINE 3+ (NEGATIVE); NITRITES,URINE NEGATIVE (NEGATIVE); PROTEIN,URINE 3+ (NEGATIVE); UROBILINOGEN,URINE NORMAL (NORMAL)
[2019-06-11 16:48] VITALS: BMI 33.3
[2019-06-11 16:51] LABS: COLOR,URINE DARK YELLOW (YELLOW)
[2019-06-11 16:52] LABS: APPEARANCE,URINE CLOUDY (CLEAR); BACTERIA,URINE 2+ /HPF (NEGATIVE); RBC,URINE 30-50 /HPF (0-3); SQUAMOUS EPITHELIAL CELL,UR FEW /HPF (NEGATIVE)
[2019-06-11] MEDS ORDERED: PHARMACY CONSULT LTC MEDICATIONS XX SCH (17:00)
[2019-06-11] MEDS: VSL#3 PO SCH (17:57)
[2019-06-11] MEDS: ROBITUSSIN DM PO SCH ×2 (17:57→17:58)
[2019-06-11] MEDS: D5W 1000 ML IV 1,000 ML IV SCH (18:13)
[2019-06-11] MEDS: FORTAZ or TAZICEF VIAL INJ 1 G in NS 100 ML IV + SPIKE MINIBAG* 100 ML IV SCH ×2 (18:23→21:00)
[2019-06-12] MEDS: ROBITUSSIN DM PO SCH ×3 (00:08→22:00)
[2019-06-12] MEDS: FORTAZ or TAZICEF VIAL INJ 1 G in NS 100 ML IV + SPIKE MINIBAG* 100 ML IV SCH (06:00)
[2019-06-12 06:22] LABS: ALBUMIN 2.6 g/dL (3.4-5.0); CALCIUM 8.9 mg/dL (8.5-10.1); CARBON DIOXIDE 23.1 mmol/L (21-32); CREATININE 1.67 mg/dL (0.55-1.02); TOTAL PROTEIN 7.2 g/dL (6.4-8.2)
[2019-06-12 06:23] LABS: BASOPHILS % (AUTO) 0.1 % (0.2-1.0); EOSINOPHILS # (AUTO) 0.1 x10^3/uL (0.0-0.2); EOSINOPHILS % (AUTO) 0.4 % (0.9-2.9); HEMOGLOBIN 11.3 g/dL (12.0-16.0); LYMPHOCYTES % (AUTO) 18.8 % (21.0-51.0); MEAN CORPUSCULAR HGB CONC 32.3 g/dL (33.0-35.0); MEAN CORPUSCULAR VOLUME 98.8 fL (80.0-100.0); MEAN PLATELET VOLUME 8.3 fL (7.4-11.0); MONOCYTES # (AUTO) 0.7 x10^3/uL (0.3-0.8); MONOCYTES % (AUTO) 4.5 % (0.0-13.0); NEUTROPHILS # (AUTO) 12.1 x10^3/uL (2.2-4.8); NEUTROPHILS % (AUTO) 76.2 % (42.0-75.0); PLATELET COUNT 200 X10^3/uL (150.0-450.0); RED BLOOD COUNT 3.54 X10^6/uL (3.5-5.4); RED CELL DISTRIBUTION WIDTH 15.6 % (11.6-16.5); WHITE BLOOD COUNT 15.9 X10^3/uL (3.6-10.0)
--- NOTE | 2019-06-12 06:38 | RAD ---
HISTORYShortness of breathSTUDYCHEST, 1 [id number]/25/2020FINDINGSThere is a port present on the left. The heart is within normal limits in size. The huang are normal. The lungs are well inflated and free of acute alveolar infiltrates. Mild peribronchial thickening suggestive of bronchitis. No pleural effusions are identified. Bony thorax is unremarkable.IMPRESSIONContinued peribronchial thickening suggestive of bronchitisNo acute infiltratesElectronically signed by: MAYELA GARCIA (Jun 12, 2019 06:37:31)
[2019-06-12] MEDS: D5W 1000 ML IV 1,000 ML IV SCH ×2 (06:44→21:10)
[2019-06-12] MEDS ORDERED: FORTAZ or TAZICEF VIAL INJ 1 G in NS 100 ML IV + SPIKE MINIBAG* 100 ML IV SCH (09:00)
[2019-06-12] MEDS ORDERED: MILK OF MAGNESIA PO PRN (09:34)
[2019-06-12] MEDS ORDERED: PROCRIT or EPOGEN VIAL 10,000 UNITS SC PRN (09:34)
[2019-06-12] MEDS: VSL#3 PO SCH (09:40)
[2019-06-12] MEDS ORDERED: PATIENT'S HOME MEDICATION (Levocetirizine 5 MG) PO SCH (09:45)
[2019-06-12 10:06] LABS: LACTATE DEHYDROGENASE 147 Units/L (81-234)
[2019-06-12 12:08] LABS: RSV AG DETECTION NEGATIVE (NEGATIVE)
[2019-06-12] MEDS ORDERED: ZESTRIL TAB 20 MG ONE (14:09)
[2019-06-12] MEDS: PEPCID TAB 20 MG PO SCH (14:30)
[2019-06-12] MEDS: ZESTRIL TAB 20 MG PO SCH (14:30)
[2019-06-12] MEDS: LOVENOX INJ 30 MG SYR SC SCH (14:30)
[2019-06-12] MEDS: MEGACE PO SCH ×2 (14:30→21:00)
[2019-06-12] MEDS: REQUIP PO SCH ×2 (14:30→21:00)
[2019-06-12] MEDS: ANTIVERT TAB 25 MG PO SCH (14:30)
[2019-06-12] MEDS: PROTONIX TAB 40 MG PO SCH ×2 (14:30→21:00)
[2019-06-12] MEDS: SYNTHROID 125 mcg TAB PO SCH (14:30)
[2019-06-12] MEDS: TAB-A-VITE PO SCH (14:30)
[2019-06-12] MEDS: COLACE CAP 100 MG PO SCH (14:30)
[2019-06-12] MEDS: MIRALAX POWDER (1 DOSE 17 G) PO SCH (14:30)
[2019-06-12] MEDS: HEMOCYTE-PLUS PO SCH (14:30)
[2019-06-12] MEDS: NYSTATIN POWDER TOP SCH ×2 (15:39→21:00)
[2019-06-12] MEDS ORDERED: LEXAPRO ONE (20:41)
[2019-06-12] MEDS: ZOCOR TAB 20 MG PO SCH (21:00)
[2019-06-12] MEDS: LEXAPRO PO SCH (21:00)
[2019-06-12] MEDS ORDERED: PATIENT'S HOME MEDICATION (Melatonin 10 MG) PO SCH (21:00)
[2019-06-12] MEDS ORDERED: TAMIFLU PO SCH (21:00)
[2019-06-12] MEDS: ZYLOPRIM PO SCH (21:00)
[2019-06-12] MEDS: RisperDAL TAB 1 MG PO SCH (21:00)
[2019-06-12] MEDS: DESYREL PO SCH (21:00)
[2019-06-12] MEDS: KLONOPIN TAB 0.5 MG PO SCH (21:00)
--- NOTE | 2019-06-12 22:18 | DR.H&P ---
H&P - History & Physical for Day of: H&P Date: 06/11/19 - Chief Complaint Chief Complaint: FEVER, COUGH - History of Present Illness History of Present Illness: IS A 79 YEAR OLD PATIENT OF OURS. SHE IS A RESIDENT OF [facility]. [facility] STAFF REPORTS THAT PATIENT HAS HAD FEVER AND COUGH FOR THE PAST TWO DAYS. OUTPATIENT LABS REVEALED THE FOLLOWING ABNORMAL VALUES: WBC 21.0, SODIUM 158, CHLORIDE 120, BUN 37, CREA TININE 1.67, GLUCOSE 165, CALCIUM 10.3, AST 12, ALBUMIN 3.2, GLOBULIN 5.0. A URINALYSIS WAS OBTAINED AND REVEALED: WBC TNTC, RBC 30-50, LEUKOCYTES 3+, BACTERIA 2+. RSV SWAB NEGATIVE. INFLUENZA NEGATIVE. BLOOD AND URINE CULTURES WERE SET UP. A CHEST XRAY WAS OBTAINED AND REVEALED: Peribronchial thickening with questionable left basilar atelectasis and/or infiltrate. Correlate clinically. SHE WAS STARTED ON IV FORTAZ, IV LEVAQUIN, D5W AT 80 ML/HR, RESPIRATORY TX, SUPPLEMENTAL OXYGEN, AND HOME MEDICATIONS WERE RESUMED. WE WILL OBTAIN A FERRITIN AND LDH LEVEL TODAY. OTHERWISE, WE WILL FOLLOW UP WITH AM LABS AND CONTINUE TO MONITOR. - Past Medical History Past Medical History: Coronary Artery Disease, Hypertension, Dyslipidemia, Alzheimers, Anxiety, Hypothyroidism, Arthritis, Gout, CHF - Past Surgical History Surgical History: - Family History Family Medical History: Cancer, Coronary Artery Disease - Social History Does patient currently use any type of tobacco product: No Have you used tobacco products in the last 12 months: No Type of Tobacco Use: None Does any household member use tobacco: No Alcohol Use: None - Medications Home Medications: fluoxetine [From Prozac] Allergy (Verified 01/22/19 14:06) haloperidol [From Haldol] Allergy (Verified 01/23/19 17:38) CONTINUE taking the following medications oseltamivir 75 mg PO HS 06/11/19 [History] ropinirole 0.5 mg PO BID 06/11/19 [History] tramadol 50 mg PO Q6HR PRN 06/11/19 [History] - Review of Systems Constitutional: Fever, Weakness Eyes: No Symptoms Reported ENT: No Symptoms Reported Respiratory: Cough, Shortness of Breath Cardiovascular: No Symptoms Reported Gastrointestinal: No Symptoms Reported Genitourinary: No Symptoms Reported Musculoskeletal: No Symptoms Reported Skin: No Symptoms Reported Neurological: Weakness - Physical Exam Vital Signs: Temperature 98.4 F Pulse Rate [Right Brachial] 78 Pulse Rate 69 Respiratory Rate 18 Blood Pressure [Right Arm] 95/59 Blood Pressure [Left Calf] 136/60 Blood Pressure 147/71 O2 Sat by Pulse Oximetry 100 Oriented: Not Oriented Eyes: Normal Ear: Normal Nose: Normal Throat: Normal Respiratory: Diminished Throughout Cardiovascular: Normal : Normal Auscultation: Bowel Sounds: Normal Palpation: Normal Tenderness: Normal Skin: Normal Musculoskeletal: Normal Psychiatric: Normal Mood Description: Calm Affect: Normal Speech Pattern: Inappropriate - Assessment/Plan (1) Bronchopneumonia Status: Acute Plan: ADMIT, IV FORTAZ, IV LEVAQUIN, D5W AT 80 ML/HR, RESPIRATORY TX, SUPPLEMENTAL OXYGEN, AND HOME MEDICATIONS WERE RESUMED (2) Urinary tract infection Qualifiers: Urinary tract infection type: site unspecified Hematuria presence: without hematuria Qualified Code(s): N39.0 - Urinary tract infection, site not specified Status: Acute Plan: IV FORTAZ, IV LEVAQUIN, CONTINUE TO MONITOR (3) Hypernatremia Status: Acute Plan: D5W AT 80 ML/HR, CONTINUE TO MONITOR - Allergies Allergies/Adverse Reactions: Allergies Allergy/AdvReac Type Severity Reaction Status Date / Time fluoxetine [From Prozac] Allergy Verified 01/22/19 14:06 haloperidol [From Haldol] Allergy Verified 01/23/19 17:38
[2019-06-13 05:55] LABS: BASOPHILS % (AUTO) 0.2 % (0.2-1.0); EOSINOPHILS # (AUTO) 0.2 x10^3/uL (0.0-0.2); EOSINOPHILS % (AUTO) 1.5 % (0.9-2.9); HEMATOCRIT 28.1 % (36.0-47.0); HEMOGLOBIN 9.4 g/dL (12.0-16.0); LYMPHOCYTES # (AUTO) 3.4 X10^3/uL (1.3-2.9); LYMPHOCYTES % (AUTO) 30.8 % (21.0-51.0); MEAN CORPUSCULAR HEMOGLOBIN 33.1 pg (27.0-34.0); MEAN CORPUSCULAR HGB CONC 33.5 g/dL (33.0-35.0); MEAN CORPUSCULAR VOLUME 98.9 fL (80.0-100.0); MEAN PLATELET VOLUME 8.7 fL (7.4-11.0); MONOCYTES # (AUTO) 0.5 x10^3/uL (0.3-0.8); MONOCYTES % (AUTO) 4.5 % (0.0-13.0); NEUTROPHILS # (AUTO) 6.9 x10^3/uL (2.2-4.8); PLATELET COUNT 173 X10^3/uL (150.0-450.0); RED BLOOD COUNT 2.84 X10^6/uL (3.5-5.4); RED CELL DISTRIBUTION WIDTH 15.5 % (11.6-16.5)
[2019-06-13 06:08] LABS: ALBUMIN 2.2 g/dL (3.4-5.0); CALCIUM 8.1 mg/dL (8.5-10.1); CARBON DIOXIDE 23.8 mmol/L (21-32); COR CA(FOR HYPOALB) 9.5 mg/dL (8.5-10.1); CREATININE 1.92 mg/dL (0.55-1.02)
--- NOTE | 2019-06-13 08:53 | RAD ---
HISTORYShortness of breathSTUDYCHEST, 1 [id number]/26/2020FINDINGSPatient is rotated to the left. There is a left-sided port present. The heart is within normal limits in size. No congestive heart failure is noted. The lungs are free of acute alveolar infiltrates. Previously noted peribronchial thickening has resolved.IMPRESSIONNo significant abnormality identifiedElectronically signed by: MAYELA GARCIA (Jun 13, 2019 08:51:26)
[2019-06-13] MEDS ORDERED: PATIENT'S HOME MEDICATION (Iron-Folic Acid-Mv, Min Cmb#15 [Hemocyte-Plus] 1 CAP) PO SCH (09:00)
[2019-06-13] MEDS ORDERED: FORTAZ or TAZICEF VIAL INJ 1 G in NS 100 ML IV + SPIKE MINIBAG* 100 ML IV SCH (09:00)
[2019-06-13] MEDS ORDERED: ZESTRIL TAB 20 MG ONE (09:50)
[2019-06-13] MEDS ORDERED: KLOR-CON PO PRN (09:53)
[2019-06-13] MEDS ORDERED: MAGNESIUM SULFATE 1 GRAM/100 mL PREMIX 1 GM/100 ML BAG IV PRN (09:53)
[2019-06-13] MEDS ORDERED: K-DUR TAB 20 MEQ PO PRN (09:53)
[2019-06-13] MEDS ORDERED: POTASSIUM CHLORIDE LIQ 20 MEQ UDC PO PRN (09:53)
[2019-06-13] MEDS ORDERED: POTASSIUM CHL 40 MEQ/NS 0.45% 500 ML IV PRN (09:53)
[2019-06-13] MEDS ORDERED: K-RIDER 10 MEQ/NS 100 ML 10 MEQ/100 ML BAG IV PRN (09:53)
[2019-06-13] MEDS ORDERED: POTASSIUM CHL 60 MEQ/NS 0.45% 500 ML IV PRN (09:53)
[2019-06-13] MEDS ORDERED: MICRO K EXTEN CAP 10 MEQ PO PRN (09:53)
[2019-06-13] MEDS: LOVENOX INJ 30 MG SYR SC SCH (09:59)
[2019-06-13] MEDS: COLACE CAP 100 MG PO SCH (09:59)
[2019-06-13] MEDS: ANTIVERT TAB 25 MG PO SCH (09:59)
[2019-06-13] MEDS: PROTONIX TAB 40 MG PO SCH (10:00)
[2019-06-13] MEDS: HEMOCYTE-PLUS PO SCH (10:01)
[2019-06-13] MEDS: PEPCID TAB 20 MG PO SCH (10:01)
[2019-06-13] MEDS: SYNTHROID 125 mcg TAB PO SCH (10:02)
[2019-06-13] MEDS: MIRALAX POWDER (1 DOSE 17 G) PO SCH (10:02)
[2019-06-13] MEDS: ROBITUSSIN DM PO SCH ×5 (10:03→21:44)
[2019-06-13] MEDS: LEVAQUIN PREMIX IV 750 MG 750 MG/150 ML BAG IV SCH (10:04)
[2019-06-13] MEDS: MEGACE PO SCH ×2 (10:04→21:29)
[2019-06-13] MEDS: VSL#3 PO SCH (10:05)
[2019-06-13] MEDS: TAB-A-VITE PO SCH (10:05)
[2019-06-13] MEDS: NYSTATIN POWDER TOP SCH ×2 (10:06→21:00)
[2019-06-13] MEDS: REQUIP PO SCH ×2 (10:06→21:29)
--- NOTE | 2019-06-13 10:38 | PCM.PROG ---
Progress Note - Progress Note for Day of Date of Exam: 06/13/19 - Subjective Subjective: IS BEING TREATED FOR BRONCHOPNEUMONIA, A URINARY TRACT INFECTION, AND HYPERNATREMIA. TODAY, SHE IS LYING IN BED WITH EYES CLOSED ON MORNING ROUNDS. SHE AWAKENS TO VERBAL STIMULI, BUT DOES NOT RESPOND VERBALLY. ON EXAMINATION, HEART IS REGULAR IN RATE AND RHYTHM. BILATERAL LUNGS ARE NOTED WITH DIMINISHED LUNG SOUNDS THROUGHOUT. ABDOMEN IS ROUND, SOFT, AND NOTED WITH SUPRAPUBIC TENDERNESS TO PALPATION. HER VITALS THIS MORNING ARE: 97.7-69-18-100%-99/59. LABS WERE OBTAINED. ABNORMAL LAB VALUES INCLUDE THE FOLLOWING: WBC 11.0, RBC 2.84, HGB 9.4, HCT 28.1, POTASSIUM 3.3, CHLORIDE 109, BUN 41, CREATININE 1.92, GLUCOSE 120, CALCIUM 8.1, FERRITIN 1778, ALK PHOS 34, CRP 72.60, TOTAL PROTEIN 6.0, ALBUMIN 2.2. A CHEST XRAY WAS OBTAINED AND REVEALED: Patient is rotated to the left. There is a left-sided port present. The heart is within normal limits in size. No congestive heart failure is noted. The lungs are free of acute alveolar infiltrates. Previously noted peribronchial thickening has resolved. SHE IS CURRENTLY RECEIVING IV FORTAZ, IV LEVAQUIN, D5W AT 80 ML/HR, RESPIRATORY TX, SUPPLEMENTAL OXYGEN, AND HOME MEDICATIONS WERE RESUMED. WE WILL CONTINUE WITH CURRENT PLAN OF CARE TODAY. OTHERWISE, WE WILL FOLLOW UP WITH AM LABS AND CONTINUE TO MONITOR. - Past Medical Family Social History Past Med/Fam/Surg Hx: No changes since H&P Allergies: Allergies fluoxetine [From Prozac] Allergy (Verified 01/22/19 14:06) haloperidol [From Haldol] Allergy (Verified 01/23/19 17:38) - Review of Systems ROS: No change since H&P - Vital Signs and I&O's Vital Signs: Temperature 97.7 F Pulse Rate [Right Brachial] 69 Pulse Rate 71 Respiratory Rate 18 Blood Pressure [Right Arm] 95/59 Blood Pressure [Left Calf] 99/59 Blood Pressure 147/71 O2 Sat by Pulse Oximetry 97 Intake and Output: Intake & Output 06/10/19 06/11/19 06/12/19 06/13/19 11:59 11:59 11:59 11:59 Intake Total 120 / 120 1358 / 1358 Balance 120 / 120 1358 / 1358 - Physical Exam Oriented: Not Oriented Eyes: Normal Ear: Normal Nose: Normal Throat: Normal Respiratory: Generalized, Diminished Cardiovascular: Normal : Normal Auscultation: Bowel Sounds: Normal Palpation: Normal Tenderness: Normal Skin: Normal Musculoskeletal: Normal Psychiatric: Normal Mood Description: Calm Affect: Normal Speech Pattern: Inappropriate - Laboratory and Diagnostics Result Diagrams: 06/13/19 05:15 06/13/19 05:15 Labs: 06/11/19 15:50 Urine,Catheterized Urine Culture - Final Escherichia Coli Laboratory WBC 11.0 X10^3/uL (3.6-10.0) H 06/13/19 05:15 RBC 2.84 X10^6/uL (3.5-5.4) L 06/13/19 05:15 Hgb 9.4 g/dL (12.0-16.0) L 06/13/19 05:15 Hct 28.1 % (36.0-47.0) L 06/13/19 05:15 MCV 98.9 fL (80.0-100.0) 06/13/19 05:15 MCH 33.1 pg (27.0-34.0) 06/13/19 05:15 MCHC 33.5 g/dL (33.0-35.0) 06/13/19 05:15 RDW 15.5 % (11.6-16.5) 06/13/19 05:15 Plt Count 173 X10^3/uL (150.0-450.0) 06/13/19 05:15 MPV 8.7 fL (7.4-11.0) 06/13/19 05:15 Neut % (Auto) 63.0 % (42.0-75.0) 06/13/19 05:15 Lymph % (Auto) 30.8 % (21.0-51.0) 06/13/19 05:15 [place] % (Auto) 4.5 % (0.0-13.0) 06/13/19 05:15 Eos % (Auto) 1.5 % (0.9-2.9) 06/13/19 05:15 Baso % (Auto) 0.2 % (0.2-1.0) 06/13/19 05:15 Neut # (Auto) 6.9 x10^3/uL (2.2-4.8) H 06/13/19 05:15 Lymph # (Auto) 3.4 X10^3/uL (1.3-2.9) H 06/13/19 05:15 [place] # (Auto) 0.5 x10^3/uL (0.3-0.8) 06/13/19 05:15 Eos # (Auto) 0.2 x10^3/uL (0.0-0.2) 06/13/19 05:15 Baso # (Auto) 0.0 X10^3/uL (0.0-0.1) 06/13/19 05:15 Absolute Nucleated RBC 0.0 /100WBC 06/13/19 05:15 ESR 112 MM/HOUR (0-20) H 06/12/19 13:01 Sodium 143 mmol/L (136-145) 06/13/19 05:15 Corrected Sodium 143 mmol/L (136-145) 06/13/19 05:15 Potassium 3.3 mmol/L (3.5-5.1) L 06/13/19 05:15 Chloride 109 mmol/L (98-107) H 06/13/19 05:15 Carbon Dioxide 23.8 mmol/L (21-32) 06/13/19 05:15 BUN 41 mg/dL (7-18) H 06/13/19 05:15 Creatinine 1.92 mg/dL (0.55-1.02) H 06/13/19 05:15 Est GFR (MDRD) Af Amer 32 (>60) L 06/13/19 05:15 Est GFR (MDRD) Non-Af 27 (>60) L 06/13/19 05:15 Glucose 120 mg/dL (65-99) H 06/13/19 05:15 Calcium 8.1 mg/dL (8.5-10.1) L 06/13/19 05:15 Corrected Calcium 9.5 mg/dL (8.5-10.1) 06/13/19 05:15 Magnesium 2.2 mg/dL (1.7-2.9) 06/13/19 05:15 Ferritin 1778 ng/mL (8-252) H 06/12/19 05:28 Total Bilirubin 0.20 mg/dL (0.2-1.0) 06/13/19 05:15 AST 16 Units/L (15-37) 06/13/19 05:15 ALT 21 Units/L (12-78) 06/13/19 05:15 Alkaline Phosphatase 34 Units/L (46-116) L 06/13/19 05:15 Lactate Dehydrogenase 147 Units/L (81-234) 06/12/19 05:28 C-Reactive Protein 72.60 mg/L (0-3.0) H 06/12/19 13:01 Total Protein 6.0 g/dL (6.4-8.2) L 06/13/19 05:15 Albumin 2.2 g/dL (3.4-5.0) L 06/13/19 05:15 Globulin 3.8 g/dL (2.5-4.5) 06/13/19 05:15 Albumin/Globulin Ratio 0.6 Ratio (1.1-2.1) L 06/13/19 05:15 Specimen Type Catherized urine 06/11/19 15:50 Urine Color Dark yellow (YELLOW) 06/11/19 15:50 Urine Appearance Cloudy (CLEAR) 06/11/19 15:50 Urine pH 5.0 (5.0 - 8.0) 06/11/19 15:50 Ur Specific [place] 1.025 (1.000-1.030) 06/11/19 15:50 Urine Protein 3+ (NEGATIVE) 06/11/19 15:50 Urine Glucose (UA) Negative (NEGATIVE) 06/11/19 15:50 Urine Ketones Negative (NEGATIVE) 06/11/19 15:50 Urine Occult Blood 2+ (NEGATIVE) 06/11/19 15:50 Urine Nitrite Negative (NEGATIVE) 06/11/19 15:50 Urine Bilirubin Negative (NEGATIVE) 06/11/19 15:50 Urine Urobilinogen Normal (NORMAL) 06/11/19 15:50 Ur Leukocyte Esterase 3+ (NEGATIVE) 06/11/19 15:50 Urine RBC 30-50 /HPF (0-3) A 06/11/19 15:50 Urine WBC Tntc /HPF (0-5) A 06/11/19 15:50 Ur Squamous Epith Cells Few /HPF (NEGATIVE) 06/11/19 15:50 Urine Bacteria 2+ /HPF (NEGATIVE) 06/11/19 15:50 Ur Culture Indicated? Yes/culture set up 06/11/19 15:50 RSV Nasal Swab Negative (NEGATIVE) 06/12/19 11:39 - Plan (1) Bronchopneumonia Status: Acute Plan: IV FORTAZ, IV LEVAQUIN, D5W AT 80 ML/HR, RESPIRATORY TX, SUPPLEMENTAL OXYGEN, AND HOME MEDICATIONS WERE RESUMED (2) Urinary tract infection Status: Acute Qualifiers: Urinary tract infection type: site unspecified Hematuria presence: without hematuria Qualified Code(s): N39.0 - Urinary tract infection, site not specified Plan: IV FORTAZ, IV LEVAQUIN, CONTINUE TO MONITOR (3) Hypernatremia Status: Acute Plan: D5W AT 80 ML/HR, CONTINUE TO MONITOR
[2019-06-13] MEDS: D5W 1000 ML IV 1,000 ML IV SCH ×2 (11:43→21:31)
[2019-06-13] MEDS: ZESTRIL TAB 20 MG PO SCH (12:38)
[2019-06-13] MEDS ORDERED: POTASSIUM ACETATE IV ONE ×2 (15:08)
[2019-06-13] MEDS ORDERED: NS IV ONE ×4 (15:08→15:11)
[2019-06-13] MEDS ORDERED: POTASSIUM CHLORIDE IV ONE ×2 (15:11)
[2019-06-13] MEDS ORDERED: LEXAPRO ONE (21:08)
[2019-06-13] MEDS: ZYLOPRIM PO SCH (21:28)
[2019-06-13] MEDS: TAMIFLU PO SCH (21:28)
[2019-06-13] MEDS: ZOCOR TAB 20 MG PO SCH (21:28)
[2019-06-13] MEDS: DESYREL PO SCH (21:28)
[2019-06-13] MEDS: PriLOSEC PO SCH (21:29)
[2019-06-13] MEDS: LEXAPRO PO SCH (21:30)
[2019-06-13] MEDS: RisperDAL TAB 1 MG PO SCH (21:30)
[2019-06-13] MEDS: KLONOPIN TAB 0.5 MG PO SCH (21:31)
[2019-06-14] MEDS: D5W 1000 ML IV 1,000 ML IV SCH ×3 (01:00→23:00)
[2019-06-14 06:17] LABS: BASOPHILS % (AUTO) 0.2 % (0.2-1.0); EOSINOPHILS # (AUTO) 0.1 x10^3/uL (0.0-0.2); EOSINOPHILS % (AUTO) 1.2 % (0.9-2.9); HEMATOCRIT 29.7 % (36.0-47.0); LYMPHOCYTES # (AUTO) 2.5 X10^3/uL (1.3-2.9); MEAN CORPUSCULAR HEMOGLOBIN 32.7 pg (27.0-34.0); MEAN CORPUSCULAR HGB CONC 33.8 g/dL (33.0-35.0); MEAN CORPUSCULAR VOLUME 96.8 fL (80.0-100.0); MEAN PLATELET VOLUME 8.4 fL (7.4-11.0); MONOCYTES # (AUTO) 0.4 x10^3/uL (0.3-0.8); MONOCYTES % (AUTO) 4.2 % (0.0-13.0); NEUTROPHILS # (AUTO) 5.9 x10^3/uL (2.2-4.8); NEUTROPHILS % (AUTO) 66.4 % (42.0-75.0); PLATELET COUNT 178 X10^3/uL (150.0-450.0); RED BLOOD COUNT 3.06 X10^6/uL (3.5-5.4); RED CELL DISTRIBUTION WIDTH 14.7 % (11.6-16.5); WHITE BLOOD COUNT 8.8 X10^3/uL (3.6-10.0)
[2019-06-14 06:29] LABS: ALBUMIN 2.2 g/dL (3.4-5.0); CALCIUM 8.4 mg/dL (8.5-10.1); CARBON DIOXIDE 24.2 mmol/L (21-32); COR CA(FOR HYPOALB) 9.8 mg/dL (8.5-10.1); CREATININE 1.52 mg/dL (0.55-1.02); TOTAL PROTEIN 6.1 g/dL (6.4-8.2)
--- NOTE | 2019-06-14 06:36 | RAD ---
CHEST, 1 VIEWHistory: SOB LIMITED EXAMComparison: 06/13/2019Findings: The exam is severely limited secondary to patient rotation. Accounting for this, the cardiac silhouette is grossly normal in size. No definite acute alveolar infiltrate is identified. There is no significant pleural effusion. Left-sided port catheter remains grossly well positioned without pneumothorax.Impression: Technically limited exam as above without definite acute cardiopulmonary abnormality.Electronically signed by: BHAVIK VALENZUELA (Jun 14, 2019 06:34:57)
[2019-06-14] MEDS ORDERED: ZESTRIL TAB 20 MG ONE (08:51)
[2019-06-14] MEDS: PEPCID TAB 20 MG PO SCH (09:28)
[2019-06-14] MEDS: VSL#3 PO SCH (09:28)
[2019-06-14] MEDS: COLACE CAP 100 MG PO SCH (09:29)
[2019-06-14] MEDS: TAB-A-VITE PO SCH (09:29)
[2019-06-14] MEDS: SYNTHROID 125 mcg TAB PO SCH (09:29)
[2019-06-14] MEDS: MEGACE PO SCH ×2 (09:29→21:36)
[2019-06-14] MEDS: HEMOCYTE-PLUS PO SCH (09:29)
[2019-06-14] MEDS: ANTIVERT TAB 25 MG PO SCH (09:30)
[2019-06-14] MEDS: LOVENOX INJ 30 MG SYR SC SCH (09:30)
[2019-06-14] MEDS: MIRALAX POWDER (1 DOSE 17 G) PO SCH ×2 (09:30→09:32)
[2019-06-14] MEDS: PriLOSEC PO SCH ×2 (09:30→21:35)
[2019-06-14] MEDS: REQUIP PO SCH ×2 (09:31→21:32)
[2019-06-14] MEDS: ROBITUSSIN DM PO SCH ×4 (09:31→21:31)
[2019-06-14] MEDS: INVANZ INJ 1 GM VIAL 1 GM in NS 100 ML IV + SPIKE MINIBAG* 100 ML IV SCH (09:32)
[2019-06-14] MEDS: ZESTRIL TAB 20 MG PO SCH (09:33)
[2019-06-14] MEDS: NYSTATIN POWDER TOP SCH ×2 (09:33→21:39)
[2019-06-14] MEDS ORDERED: LEXAPRO ONE (20:35)
[2019-06-14] MEDS: LEXAPRO PO SCH (21:32)
[2019-06-14] MEDS: KLONOPIN TAB 0.5 MG PO SCH (21:34)
[2019-06-14] MEDS: ZYLOPRIM PO SCH (21:35)
[2019-06-14] MEDS: TAMIFLU PO SCH (21:35)
[2019-06-14] MEDS: RisperDAL TAB 1 MG PO SCH (21:37)
[2019-06-14] MEDS: ZOCOR TAB 20 MG PO SCH (21:37)
[2019-06-14] MEDS: DESYREL PO SCH (21:38)
[2019-06-15 05:48] LABS: BASOPHILS # (AUTO) 0.1 X10^3/uL (0.0-0.1); BASOPHILS % (AUTO) 0.8 % (0.2-1.0); EOSINOPHILS # (AUTO) 0.1 x10^3/uL (0.0-0.2); EOSINOPHILS % (AUTO) 1.5 % (0.9-2.9); HEMATOCRIT 27.7 % (36.0-47.0); HEMOGLOBIN 9.4 g/dL (12.0-16.0); LYMPHOCYTES # (AUTO) 2.4 X10^3/uL (1.3-2.9); LYMPHOCYTES % (AUTO) 27.8 % (21.0-51.0); MEAN CORPUSCULAR VOLUME 96.9 fL (80.0-100.0); MEAN PLATELET VOLUME 8.5 fL (7.4-11.0); MONOCYTES # (AUTO) 0.4 x10^3/uL (0.3-0.8); MONOCYTES % (AUTO) 4.3 % (0.0-13.0); NEUTROPHILS # (AUTO) 5.6 x10^3/uL (2.2-4.8); NEUTROPHILS % (AUTO) 65.6 % (42.0-75.0); PLATELET COUNT 177 X10^3/uL (150.0-450.0); RED BLOOD COUNT 2.86 X10^6/uL (3.5-5.4); RED CELL DISTRIBUTION WIDTH 15.1 % (11.6-16.5); WHITE BLOOD COUNT 8.6 X10^3/uL (3.6-10.0)
[2019-06-15 06:04] LABS: ALBUMIN 2.1 g/dL (3.4-5.0); CALCIUM 8.2 mg/dL (8.5-10.1); CARBON DIOXIDE 23.1 mmol/L (21-32); COR CA(FOR HYPOALB) 9.7 mg/dL (8.5-10.1); CREATININE 1.47 mg/dL (0.55-1.02); TOTAL PROTEIN 5.9 g/dL (6.4-8.2)
[2019-06-15] MEDS ORDERED: ZESTRIL TAB 20 MG ONE (09:01)
[2019-06-15] MEDS: INVANZ INJ 1 GM VIAL 1 GM in NS 100 ML IV + SPIKE MINIBAG* 100 ML IV SCH (09:28)
[2019-06-15] MEDS: ROBITUSSIN DM PO SCH ×4 (09:30→20:49)
[2019-06-15] MEDS: LEVAQUIN PREMIX IV 750 MG 750 MG/150 ML BAG IV SCH (10:00)
[2019-06-15] MEDS: SYNTHROID 125 mcg TAB PO SCH (11:58)
[2019-06-15] MEDS: HEMOCYTE-PLUS PO SCH (11:58)
[2019-06-15] MEDS: MEGACE PO SCH ×2 (12:00→20:47)
[2019-06-15] MEDS: TAB-A-VITE PO SCH (12:00)
[2019-06-15] MEDS: ZESTRIL TAB 20 MG PO SCH ×2 (12:00→12:03)
[2019-06-15] MEDS: PriLOSEC PO SCH ×2 (12:04→20:48)
[2019-06-15] MEDS: REQUIP PO SCH ×2 (12:04→20:48)
[2019-06-15] MEDS: COLACE CAP 100 MG PO SCH (12:04)
[2019-06-15] MEDS: ANTIVERT TAB 25 MG PO SCH (12:04)
[2019-06-15] MEDS: VSL#3 PO SCH (12:05)
[2019-06-15] MEDS: MIRALAX POWDER (1 DOSE 17 G) PO SCH (12:06)
[2019-06-15] MEDS: NYSTATIN POWDER TOP SCH ×2 (12:07→21:00)
[2019-06-15] MEDS: LOVENOX INJ 30 MG SYR SC SCH (12:07)
[2019-06-15] MEDS: PEPCID TAB 20 MG PO SCH (12:07)
[2019-06-15] MEDS: D5W 1000 ML IV 1,000 ML IV SCH ×2 (18:08→18:40)
[2019-06-15] MEDS: ULTRAM PO PRN (18:36)
[2019-06-15] MEDS ORDERED: LEXAPRO ONE (20:08)
[2019-06-15] MEDS: DESYREL PO SCH (20:45)
[2019-06-15] MEDS: KLONOPIN TAB 0.5 MG PO SCH (20:46)
[2019-06-15] MEDS: LEXAPRO PO SCH (20:46)
[2019-06-15] MEDS: RisperDAL TAB 1 MG PO SCH (20:49)
[2019-06-15] MEDS: ZYLOPRIM PO SCH (20:49)
[2019-06-15] MEDS: TAMIFLU PO SCH (20:49)
[2019-06-15] MEDS: ZOCOR TAB 20 MG PO SCH (20:49)
--- NOTE | 2019-06-15 22:09 | PCM.PROG ---
Progress Note - Progress Note for Day of Date of Exam: 06/14/19 - Subjective Subjective: IS BEING TREATED FOR BRONCHOPNEUMONIA, A URINARY TRACT INFECTION, AND HYPERNATREMIA. TODAY, SHE IS LYING IN BED WITH EYES CLOSED ON MORNING ROUNDS. SHE AWAKENS TO VERBAL STIMULI, BUT DOES NOT RESPOND VERBALLY. ON EXAMINATION, HEART IS REGULAR IN RATE AND RHYTHM. BILATERAL LUNGS ARE NOTED WITH DIMINISHED LUNG SOUNDS THROUGHOUT. ABDOMEN IS ROUND, SOFT, AND NOTED WITH SUPRAPUBIC TENDERNESS TO PALPATION. HER VITALS THIS MORNING ARE: 98.8-84-20-98%-116/56. LABS WERE OBTAINED. ABNORMAL LAB VALUES INCLUDE THE FOLLOWING: WBC RBC 3.06, HGB 10.0, HCT 29.7, BUN 31, CREATININE 1.52, GLUCOSE 142, CALCIUM 8.4, ALK PHOS 34, CRP 25.4, TOTAL PROTEIN 6.1, ALBUMIN 2.2. A URINE CULTURE IS PENDING. A CHEST XRAY WAS OBTAINED AND REVEALED: The exam is severely limited secondary to patient rotation. Accounting for this, the cardiac silhouette is grossly normal in size. No definite acute alveolar infiltrate is identified. There is no significant pleural effusion. Left-sided port catheter remains grossly well positioned without pneumothorax. SHE IS CURRENTLY RECEIVING IV FORTAZ, IV LEVAQUIN, D5W AT 80 ML/HR, RESPIRATORY TX, SUPPLEMENTAL OXYGEN, AND HOME MEDICATIONS WERE RESUMED. WE WILL CONTINUE WITH CURRENT PLAN OF CARE TODAY. OTHERWISE, WE WILL FOLLOW UP WITH AM LABS AND CONTINUE TO MONITOR. - Past Medical Family Social History Past Med/Fam/Surg Hx: No changes since H&P Allergies: Allergies fluoxetine [From Prozac] Allergy (Verified 01/22/19 14:06) haloperidol [From Haldol] Allergy (Verified 01/23/19 17:38) - Review of Systems ROS: No change since H&P - Vital Signs and I&O's Vital Signs: Temperature 99.5 F Pulse Rate [Right Brachial] 83 Pulse Rate 87 Respiratory Rate 20 Blood Pressure [Left Arm] 114/65 Blood Pressure [Right Arm] 115/78 Blood Pressure [Left Calf] 108/53 Blood Pressure 147/71 O2 Sat by Pulse Oximetry 97 Intake and Output: Intake & Output 06/13/19 06/14/19 06/15/19 06/16/19 11:59 11:59 11:59 11:59 Intake Total 1358 / 1358 1460 / 1460 2690 / 2690 0 / 0 Balance 1358 / 1358 1460 / 1460 2690 / 2690 0 / 0 - Physical Exam Oriented: Not Oriented Eyes: Normal Ear: Normal Nose: Normal Throat: Normal Respiratory: Generalized, Diminished Cardiovascular: Normal : Normal Auscultation: Bowel Sounds: Normal Palpation: Normal Tenderness: Normal Skin: Normal Musculoskeletal: Normal Psychiatric: Normal Mood Description: Calm Affect: Normal Speech Pattern: Aphasic - Laboratory and Diagnostics Result Diagrams: 06/15/19 05:20 06/15/19 05:20 Labs: 06/11/19 15:50 Urine,Catheterized Urine Culture - Final Escherichia Coli Laboratory WBC 8.6 X10^3/uL (3.6-10.0) 06/15/19 05:20 RBC 2.86 X10^6/uL (3.5-5.4) L 06/15/19 05:20 Hgb 9.4 g/dL (12.0-16.0) L 06/15/19 05:20 Hct 27.7 % (36.0-47.0) L 06/15/19 05:20 MCV 96.9 fL (80.0-100.0) 06/15/19 05:20 MCH 33.0 pg (27.0-34.0) 06/15/19 05:20 MCHC 34.0 g/dL (33.0-35.0) 06/15/19 05:20 RDW 15.1 % (11.6-16.5) 06/15/19 05:20 Plt Count 177 X10^3/uL (150.0-450.0) 06/15/19 05:20 MPV 8.5 fL (7.4-11.0) 06/15/19 05:20 Neut % (Auto) 65.6 % (42.0-75.0) 06/15/19 05:20 Lymph % (Auto) 27.8 % (21.0-51.0) 06/15/19 05:20 [place] % (Auto) 4.3 % (0.0-13.0) 06/15/19 05:20 Eos % (Auto) 1.5 % (0.9-2.9) 06/15/19 05:20 Baso % (Auto) 0.8 % (0.2-1.0) 06/15/19 05:20 Neut # (Auto) 5.6 x10^3/uL (2.2-4.8) H 06/15/19 05:20 Lymph # (Auto) 2.4 X10^3/uL (1.3-2.9) 06/15/19 05:20 [place] # (Auto) 0.4 x10^3/uL (0.3-0.8) 06/15/19 05:20 Eos # (Auto) 0.1 x10^3/uL (0.0-0.2) 06/15/19 05:20 Baso # (Auto) 0.1 X10^3/uL (0.0-0.1) 06/15/19 05:20 Absolute Nucleated RBC 0.0 /100WBC 06/15/19 05:20 ESR 86 MM/HOUR (0-20) H 06/14/19 05:40 Sodium 141 mmol/L (136-145) 06/15/19 05:20 Corrected Sodium 142 mmol/L (136-145) 06/15/19 05:20 Potassium 3.6 mmol/L (3.5-5.1) 06/15/19 05:20 Chloride 109 mmol/L (98-107) H 06/15/19 05:20 Carbon Dioxide 23.1 mmol/L (21-32) 06/15/19 05:20 BUN 18 mg/dL (7-18) 06/15/19 05:20 Creatinine 1.47 mg/dL (0.55-1.02) H 06/15/19 05:20 Est GFR (MDRD) Af Amer 44 (>60) L 06/15/19 05:20 Est GFR (MDRD) Non-Af 36 (>60) L 06/15/19 05:20 Glucose 127 mg/dL (65-99) H 06/15/19 05:20 Calcium 8.2 mg/dL (8.5-10.1) L 06/15/19 05:20 Corrected Calcium 9.7 mg/dL (8.5-10.1) 06/15/19 05:20 Magnesium 2.2 mg/dL (1.7-2.9) 06/13/19 05:15 Ferritin 1778 ng/mL (8-252) H 06/12/19 05:28 Total Bilirubin 0.10 mg/dL (0.2-1.0) L 06/15/19 05:20 AST 16 Units/L (15-37) 06/15/19 05:20 ALT 27 Units/L (12-78) 06/15/19 05:20 Alkaline Phosphatase 38 Units/L (46-116) L 06/15/19 05:20 Lactate Dehydrogenase 147 Units/L (81-234) 06/12/19 05:28 C-Reactive Protein 25.40 mg/L (0-3.0) H 06/14/19 05:40 Total Protein 5.9 g/dL (6.4-8.2) L 06/15/19 05:20 Albumin 2.1 g/dL (3.4-5.0) L 06/15/19 05:20 Globulin 3.8 g/dL (2.5-4.5) 06/15/19 05:20 Albumin/Globulin Ratio 0.6 Ratio (1.1-2.1) L 06/15/19 05:20 Specimen Type Catherized urine 06/11/19 15:50 Urine Color Dark yellow (YELLOW) 06/11/19 15:50 Urine Appearance Cloudy (CLEAR) 06/11/19 15:50 Urine pH 5.0 (5.0 - 8.0) 06/11/19 15:50 Ur Specific [place] 1.025 (1.000-1.030) 06/11/19 15:50 Urine Protein 3+ (NEGATIVE) 06/11/19 15:50 Urine Glucose (UA) Negative (NEGATIVE) 06/11/19 15:50 Urine Ketones Negative (NEGATIVE) 06/11/19 15:50 Urine Occult Blood 2+ (NEGATIVE) 06/11/19 15:50 Urine Nitrite Negative (NEGATIVE) 06/11/19 15:50 Urine Bilirubin Negative (NEGATIVE) 06/11/19 15:50 Urine Urobilinogen Normal (NORMAL) 06/11/19 15:50 Ur Leukocyte Esterase 3+ (NEGATIVE) 06/11/19 15:50 Urine RBC 30-50 /HPF (0-3) A 06/11/19 15:50 Urine WBC Tntc /HPF (0-5) A 06/11/19 15:50 Ur Squamous Epith Cells Few /HPF (NEGATIVE) 06/11/19 15:50 Urine Bacteria 2+ /HPF (NEGATIVE) 06/11/19 15:50 Ur Culture Indicated? Yes/culture set up 06/11/19 15:50 RSV Nasal Swab Negative (NEGATIVE) 06/12/19 11:39 Stool Description 5 g. green/unformed 06/14/19 00:20 Stl Occult Blood (IFOB) Negative (NEGATIVE) 06/14/19 00:20 - Plan (1) Bronchopneumonia Status: Acute Plan: IV FORTAZ, IV LEVAQUIN, D5W AT 80 ML/HR, RESPIRATORY TX, SUPPLEMENTAL OXYGEN, AND HOME MEDICATIONS WERE RESUMED (2) Urinary tract infection Status: Acute Qualifiers: Urinary tract infection type: site unspecified Hematuria presence: without hematuria Qualified Code(s): N39.0 - Urinary tract infection, site not specified Plan: IV FORTAZ, IV LEVAQUIN, CONTINUE TO MONITOR (3) Hypernatremia Status: Acute Plan: D5W AT 80 ML/HR, CONTINUE TO MONITOR
[2019-06-16] MEDS: D5W 1000 ML IV 1,000 ML IV SCH ×4 (00:10→20:17)
[2019-06-16 06:17] LABS: BASOPHILS % (AUTO) 0.3 % (0.2-1.0); EOSINOPHILS # (AUTO) 0.1 x10^3/uL (0.0-0.2); EOSINOPHILS % (AUTO) 1.6 % (0.9-2.9); HEMATOCRIT 27.8 % (36.0-47.0); HEMOGLOBIN 9.4 g/dL (12.0-16.0); LYMPHOCYTES # (AUTO) 2.7 X10^3/uL (1.3-2.9); LYMPHOCYTES % (AUTO) 30.8 % (21.0-51.0); MEAN CORPUSCULAR HEMOGLOBIN 32.6 pg (27.0-34.0); MEAN CORPUSCULAR HGB CONC 33.7 g/dL (33.0-35.0); MEAN CORPUSCULAR VOLUME 96.8 fL (80.0-100.0); MONOCYTES # (AUTO) 0.4 x10^3/uL (0.3-0.8); MONOCYTES % (AUTO) 4.2 % (0.0-13.0); NEUTROPHILS # (AUTO) 5.5 x10^3/uL (2.2-4.8); NEUTROPHILS % (AUTO) 63.1 % (42.0-75.0); PLATELET COUNT 178 X10^3/uL (150.0-450.0); RED BLOOD COUNT 2.87 X10^6/uL (3.5-5.4); WHITE BLOOD COUNT 8.7 X10^3/uL (3.6-10.0)
[2019-06-16 06:22] LABS: ALBUMIN 2.1 g/dL (3.4-5.0); CALCIUM 8.7 mg/dL (8.5-10.1); CARBON DIOXIDE 23.5 mmol/L (21-32); COR CA(FOR HYPOALB) 10.2 mg/dL (8.5-10.1); CREATININE 1.13 mg/dL (0.55-1.02); TOTAL PROTEIN 5.9 g/dL (6.4-8.2)
--- NOTE | 2019-06-16 06:55 | RAD ---
HISTORYFollow-up bronchopneumoniaSTUDYCHEST, 1 [id number] is rotated to the right. There is a port present on the left. The heart remains enlarged. No congestive heart failure is noted. No definite acute alveolar infiltrates identified. No pleural effusions identified. Bony thorax is unremarkable.IMPRESSIONContinued cardiomegaly without congestive heart failureNo definite infiltratesElectronically signed by: MAYELA GARCIA (Jun 16, 2019 06:54:26)
[2019-06-16] MEDS ORDERED: ZESTRIL TAB 20 MG ONE (07:19)
[2019-06-16] MEDS: INVANZ INJ 1 GM VIAL 1 GM in NS 100 ML IV + SPIKE MINIBAG* 100 ML IV SCH (09:34)
[2019-06-16] MEDS: REQUIP PO SCH ×2 (09:35→21:02)
[2019-06-16] MEDS: VSL#3 PO SCH (09:35)
[2019-06-16] MEDS: PEPCID TAB 20 MG PO SCH (09:35)
[2019-06-16] MEDS: HEMOCYTE-PLUS PO SCH (09:35)
[2019-06-16] MEDS: ANTIVERT TAB 25 MG PO SCH (09:35)
[2019-06-16] MEDS: PriLOSEC PO SCH ×2 (09:36→21:02)
[2019-06-16] MEDS: SYNTHROID 125 mcg TAB PO SCH (09:36)
[2019-06-16] MEDS: MEGACE PO SCH ×2 (09:36→21:01)
[2019-06-16] MEDS: COLACE CAP 100 MG PO SCH (09:37)
[2019-06-16] MEDS: ROBITUSSIN DM PO SCH ×4 (09:37→21:03)
[2019-06-16] MEDS: TAB-A-VITE PO SCH (09:37)
[2019-06-16] MEDS: NYSTATIN POWDER TOP SCH ×2 (09:38→21:02)
[2019-06-16] MEDS: LOVENOX INJ 30 MG SYR SC SCH (09:38)
[2019-06-16] MEDS: ZESTRIL TAB 20 MG PO SCH (09:39)
[2019-06-16] MEDS: MIRALAX POWDER (1 DOSE 17 G) PO SCH (09:40)
--- NOTE | 2019-06-16 10:49 | PCM.PROG ---
Progress Note - Progress Note for Day of Date of Exam: 06/15/19 - Subjective Subjective: IS BEING TREATED FOR BRONCHOPNEUMONIA, A URINARY TRACT INFECTION, AND HYPERNATREMIA. TODAY, SHE IS LYING IN BED WITH EYES CLOSED ON MORNING ROUNDS. SHE AWAKENS TO VERBAL STIMULI, BUT DOES NOT RESPOND VERBALLY. ON EXAMINATION, HEART IS REGULAR IN RATE AND RHYTHM. BILATERAL LUNGS ARE NOTED WITH DIMINISHED LUNG SOUNDS THROUGHOUT. ABDOMEN IS ROUND, SOFT, AND NOTED WITH SUPRAPUBIC TENDERNESS TO PALPATION. HER VITALS THIS MORNING ARE: 98.8-84-20-98%-116/56. LABS WERE OBTAINED. ABNORMAL LAB VALUES INCLUDE THE FOLLOWING: RBC 2.86, HGB 9.4, HCT 27.7, CHLORIDE 109, CREATININE 1.47, GLUCOSE 127, CALCIUM 8.2, TOTAL BILIRUBIN 0.10, ALK PHOS 38, TOTAL PROTEIN 5.9, ALBUMIN 2.1. A URINE CULTURE REVEALS GROWTH OF E.COLI. A CHEST XRAY WAS OBTAINED AND REVEALED: Continued cardiomegaly without congestive heart failure. No definite infiltrates. SHE IS CURRENTLY RECEIVING IV FORTAZ, IV LEVAQUIN, D5W AT 80 ML/HR, RESPIRATORY TX, SUPPLEMENTAL OXYGEN, AND HOME MEDICATIONS WERE RESUMED. WE WILL CONTINUE WITH CURRENT PLAN OF CARE TODAY. OTHERWISE, WE WILL FOLLOW UP WITH AM LABS AND CONTINUE TO MONITOR. - Past Medical Family Social History Past Med/Fam/Surg Hx: No changes since H&P Allergies: Allergies fluoxetine [From Prozac] Allergy (Verified 01/22/19 14:06) haloperidol [From Haldol] Allergy (Verified 01/23/19 17:38) - Review of Systems ROS: No change since H&P - Vital Signs and I&O's Vital Signs: Temperature 98.4 F Pulse Rate [Right Brachial] 79 Pulse Rate 87 Respiratory Rate 18 Blood Pressure [Left Arm] 122/50 Blood Pressure [Right Arm] 115/78 Blood Pressure [Left Calf] 108/53 Blood Pressure 147/71 O2 Sat by Pulse Oximetry 99 Intake and Output: Intake & Output 06/13/19 06/14/19 06/15/19 06/16/19 11:59 11:59 11:59 11:59 Intake Total 1358 / 1358 1460 / 1460 2690 / 2690 1118 / 1118 Balance 1358 / 1358 1460 / 1460 2690 / 2690 1118 / 1118 - Physical Exam Oriented: Not Oriented Eyes: Normal Ear: Normal Nose: Normal Throat: Normal Respiratory: Generalized, Diminished Cardiovascular: Normal : Normal Auscultation: Bowel Sounds: Normal Palpation: Normal Tenderness: Normal Skin: Normal Musculoskeletal: Normal Psychiatric: Normal Mood Description: Calm Affect: Normal Speech Pattern: Aphasic - Laboratory and Diagnostics Result Diagrams: 06/16/19 05:45 06/16/19 05:45 Labs: 06/11/19 15:50 Urine,Catheterized Urine Culture - Final Escherichia Coli Laboratory WBC 8.7 X10^3/uL (3.6-10.0) 06/16/19 05:45 RBC 2.87 X10^6/uL (3.5-5.4) L 06/16/19 05:45 Hgb 9.4 g/dL (12.0-16.0) L 06/16/19 05:45 Hct 27.8 % (36.0-47.0) L 06/16/19 05:45 MCV 96.8 fL (80.0-100.0) 06/16/19 05:45 MCH 32.6 pg (27.0-34.0) 06/16/19 05:45 MCHC 33.7 g/dL (33.0-35.0) 06/16/19 05:45 RDW 15.0 % (11.6-16.5) 06/16/19 05:45 Plt Count 178 X10^3/uL (150.0-450.0) 06/16/19 05:45 MPV 8.0 fL (7.4-11.0) 06/16/19 05:45 Neut % (Auto) 63.1 % (42.0-75.0) 06/16/19 05:45 Lymph % (Auto) 30.8 % (21.0-51.0) 06/16/19 05:45 [place] % (Auto) 4.2 % (0.0-13.0) 06/16/19 05:45 Eos % (Auto) 1.6 % (0.9-2.9) 06/16/19 05:45 Baso % (Auto) 0.3 % (0.2-1.0) 06/16/19 05:45 Neut # (Auto) 5.5 x10^3/uL (2.2-4.8) H 06/16/19 05:45 Lymph # (Auto) 2.7 X10^3/uL (1.3-2.9) 06/16/19 05:45 [place] # (Auto) 0.4 x10^3/uL (0.3-0.8) 06/16/19 05:45 Eos # (Auto) 0.1 x10^3/uL (0.0-0.2) 06/16/19 05:45 Baso # (Auto) 0.0 X10^3/uL (0.0-0.1) 06/16/19 05:45 Absolute Nucleated RBC 0.0 /100WBC 06/16/19 05:45 ESR 86 MM/HOUR (0-20) H 06/14/19 05:40 Sodium 139 mmol/L (136-145) 06/16/19 05:45 Corrected Sodium 139 mmol/L (136-145) 06/16/19 05:45 Potassium 3.6 mmol/L (3.5-5.1) 06/16/19 05:45 Chloride 107 mmol/L (98-107) 06/16/19 05:45 Carbon Dioxide 23.5 mmol/L (21-32) 06/16/19 05:45 BUN 12 mg/dL (7-18) 06/16/19 05:45 Creatinine 1.13 mg/dL (0.55-1.02) H 06/16/19 05:45 Est GFR (MDRD) Af Amer 60 (>60) 06/16/19 05:45 Est GFR (MDRD) Non-Af 49 (>60) L 06/16/19 05:45 Glucose 118 mg/dL (65-99) H 06/16/19 05:45 Calcium 8.7 mg/dL (8.5-10.1) 06/16/19 05:45 Corrected Calcium 10.2 mg/dL (8.5-10.1) H 06/16/19 05:45 Magnesium 2.2 mg/dL (1.7-2.9) 06/13/19 05:15 Ferritin 1778 ng/mL (8-252) H 06/12/19 05:28 Total Bilirubin 0.10 mg/dL (0.2-1.0) L 06/16/19 05:45 AST 13 Units/L (15-37) L 06/16/19 05:45 ALT 25 Units/L (12-78) 06/16/19 05:45 Alkaline Phosphatase 38 Units/L (46-116) L 06/16/19 05:45 Lactate Dehydrogenase 147 Units/L (81-234) 06/12/19 05:28 C-Reactive Protein 25.40 mg/L (0-3.0) H 06/14/19 05:40 Total Protein 5.9 g/dL (6.4-8.2) L 06/16/19 05:45 Albumin 2.1 g/dL (3.4-5.0) L 06/16/19 05:45 Globulin 3.8 g/dL (2.5-4.5) 06/16/19 05:45 Albumin/Globulin Ratio 0.6 Ratio (1.1-2.1) L 06/16/19 05:45 Specimen Type Catherized urine 06/11/19 15:50 Urine Color Dark yellow (YELLOW) 06/11/19 15:50 Urine Appearance Cloudy (CLEAR) 06/11/19 15:50 Urine pH 5.0 (5.0 - 8.0) 06/11/19 15:50 Ur Specific [place] 1.025 (1.000-1.030) 06/11/19 15:50 Urine Protein 3+ (NEGATIVE) 06/11/19 15:50 Urine Glucose (UA) Negative (NEGATIVE) 06/11/19 15:50 Urine Ketones Negative (NEGATIVE) 06/11/19 15:50 Urine Occult Blood 2+ (NEGATIVE) 06/11/19 15:50 Urine Nitrite Negative (NEGATIVE) 06/11/19 15:50 Urine Bilirubin Negative (NEGATIVE) 06/11/19 15:50 Urine Urobilinogen Normal (NORMAL) 06/11/19 15:50 Ur Leukocyte Esterase 3+ (NEGATIVE) 06/11/19 15:50 Urine RBC 30-50 /HPF (0-3) A 06/11/19 15:50 Urine WBC Tntc /HPF (0-5) A 06/11/19 15:50 Ur Squamous Epith Cells Few /HPF (NEGATIVE) 06/11/19 15:50 Urine Bacteria 2+ /HPF (NEGATIVE) 06/11/19 15:50 Ur Culture Indicated? Yes/culture set up 06/11/19 15:50 RSV Nasal Swab Negative (NEGATIVE) 06/12/19 11:39 Stool Description 5 g. green/unformed 06/14/19 00:20 Stl Occult Blood (IFOB) Negative (NEGATIVE) 06/14/19 00:20 - Plan (1) Bronchopneumonia Status: Acute Plan: IV FORTAZ, IV LEVAQUIN, D5W AT 80 ML/HR, RESPIRATORY TX, SUPPLEMENTAL OXYGEN, AND HOME MEDICATIONS WERE RESUMED (2) Urinary tract infection Status: Acute Qualifiers: Urinary tract infection type: site unspecified Hematuria presence: without hematuria Qualified Code(s): N39.0 - Urinary tract infection, site not specified Plan: IV FORTAZ, IV LEVAQUIN, CONTINUE TO MONITOR (3) Hypernatremia Status: Acute Plan: D5W AT 80 ML/HR, CONTINUE TO MONITOR
--- NOTE | 2019-06-16 11:18 | PCM.PROG ---
Progress Note - Progress Note for Day of Date of Exam: 06/16/19 - Subjective Subjective: IS BEING TREATED FOR BRONCHOPNEUMONIA, A URINARY TRACT INFECTION, AND HYPERNATREMIA. TODAY, SHE IS LYING IN BED WITH EYES CLOSED ON MORNING ROUNDS. SHE AWAKENS TO VERBAL STIMULI, BUT DOES NOT RESPOND VERBALLY. ON EXAMINATION, HEART IS REGULAR IN RATE AND RHYTHM. BILATERAL LUNGS ARE NOTED WITH DIMINISHED LUNG SOUNDS THROUGHOUT. ABDOMEN IS ROUND, SOFT, AND NOTED WITH SUPRAPUBIC TENDERNESS TO PALPATION. HER VITALS THIS MORNING ARE: 98.4-79-18-99%-122/50. LABS WERE OBTAINED. ABNORMAL LAB VALUES INCLUDE THE FOLLOWING: RBC 2.87, HGB 9.4, HCT 27.8, CREATININE 1.13, GLUCOSE 118, TOTAL BILI 0.10, AST 13, ALK PHOS 38, TOTAL PROTEIN 5.9, ALBUMIN 2.1. A URINE CULTURE REVEALS GROWTH OF E.COLI. A CHEST XRAY WAS OBTAINED AND REVEALED: Continued cardiomegaly without congestive heart failure. No definite infiltrates. SHE IS CURRENTLY RECEIVING IV FORTAZ, IV LEVAQUIN, D5W AT 80 ML/HR, RESPIRATORY TX, SUPPLEMENTAL OXYGEN, AND HOME MEDICATIONS WERE RESUMED. WE WILL CONTINUE WITH CURRENT PLAN OF CARE TODAY. OTHERWISE, WE WILL FOLLOW UP WITH AM LABS AND CONTINUE TO MONITOR. - Past Medical Family Social History Past Med/Fam/Surg Hx: No changes since H&P Allergies: Allergies fluoxetine [From Prozac] Allergy (Verified 01/22/19 14:06) haloperidol [From Haldol] Allergy (Verified 01/23/19 17:38) - Review of Systems ROS: No change since H&P - Vital Signs and I&O's Vital Signs: Temperature 98.4 F Pulse Rate [Right Brachial] 79 Pulse Rate 87 Respiratory Rate 18 Blood Pressure [Left Arm] 122/50 Blood Pressure [Right Arm] 115/78 Blood Pressure [Left Calf] 108/53 Blood Pressure 147/71 O2 Sat by Pulse Oximetry 99 Intake and Output: Intake & Output 06/13/19 06/14/19 06/15/19 06/16/19 11:59 11:59 11:59 11:59 Intake Total 1358 / 1358 1460 / 1460 2690 / 2690 1118 / 1118 Balance 1358 / 1358 1460 / 1460 2690 / 2690 1118 / 1118 - Physical Exam Oriented: Not Oriented Eyes: Normal Ear: Normal Nose: Normal Throat: Normal Respiratory: Generalized, Diminished Cardiovascular: Normal : Normal Auscultation: Bowel Sounds: Normal Palpation: Normal Tenderness: Normal Skin: Normal Musculoskeletal: Normal Psychiatric: Normal Mood Description: Calm Affect: Normal Speech Pattern: Aphasic - Laboratory and Diagnostics Result Diagrams: 06/16/19 05:45 06/16/19 05:45 Labs: 06/11/19 15:50 Urine,Catheterized Urine Culture - Final Escherichia Coli Laboratory WBC 8.7 X10^3/uL (3.6-10.0) 06/16/19 05:45 RBC 2.87 X10^6/uL (3.5-5.4) L 06/16/19 05:45 Hgb 9.4 g/dL (12.0-16.0) L 06/16/19 05:45 Hct 27.8 % (36.0-47.0) L 06/16/19 05:45 MCV 96.8 fL (80.0-100.0) 06/16/19 05:45 MCH 32.6 pg (27.0-34.0) 06/16/19 05:45 MCHC 33.7 g/dL (33.0-35.0) 06/16/19 05:45 RDW 15.0 % (11.6-16.5) 06/16/19 05:45 Plt Count 178 X10^3/uL (150.0-450.0) 06/16/19 05:45 MPV 8.0 fL (7.4-11.0) 06/16/19 05:45 Neut % (Auto) 63.1 % (42.0-75.0) 06/16/19 05:45 Lymph % (Auto) 30.8 % (21.0-51.0) 06/16/19 05:45 [place] % (Auto) 4.2 % (0.0-13.0) 06/16/19 05:45 Eos % (Auto) 1.6 % (0.9-2.9) 06/16/19 05:45 Baso % (Auto) 0.3 % (0.2-1.0) 06/16/19 05:45 Neut # (Auto) 5.5 x10^3/uL (2.2-4.8) H 06/16/19 05:45 Lymph # (Auto) 2.7 X10^3/uL (1.3-2.9) 06/16/19 05:45 [place] # (Auto) 0.4 x10^3/uL (0.3-0.8) 06/16/19 05:45 Eos # (Auto) 0.1 x10^3/uL (0.0-0.2) 06/16/19 05:45 Baso # (Auto) 0.0 X10^3/uL (0.0-0.1) 06/16/19 05:45 Absolute Nucleated RBC 0.0 /100WBC 06/16/19 05:45 ESR 86 MM/HOUR (0-20) H 06/14/19 05:40 Sodium 139 mmol/L (136-145) 06/16/19 05:45 Corrected Sodium 139 mmol/L (136-145) 06/16/19 05:45 Potassium 3.6 mmol/L (3.5-5.1) 06/16/19 05:45 Chloride 107 mmol/L (98-107) 06/16/19 05:45 Carbon Dioxide 23.5 mmol/L (21-32) 06/16/19 05:45 BUN 12 mg/dL (7-18) 06/16/19 05:45 Creatinine 1.13 mg/dL (0.55-1.02) H 06/16/19 05:45 Est GFR (MDRD) Af Amer 60 (>60) 06/16/19 05:45 Est GFR (MDRD) Non-Af 49 (>60) L 06/16/19 05:45 Glucose 118 mg/dL (65-99) H 06/16/19 05:45 Calcium 8.7 mg/dL (8.5-10.1) 06/16/19 05:45 Corrected Calcium 10.2 mg/dL (8.5-10.1) H 06/16/19 05:45 Magnesium 2.2 mg/dL (1.7-2.9) 06/13/19 05:15 Ferritin 1778 ng/mL (8-252) H 06/12/19 05:28 Total Bilirubin 0.10 mg/dL (0.2-1.0) L 06/16/19 05:45 AST 13 Units/L (15-37) L 06/16/19 05:45 ALT 25 Units/L (12-78) 06/16/19 05:45 Alkaline Phosphatase 38 Units/L (46-116) L 06/16/19 05:45 Lactate Dehydrogenase 147 Units/L (81-234) 06/12/19 05:28 C-Reactive Protein 25.40 mg/L (0-3.0) H 06/14/19 05:40 Total Protein 5.9 g/dL (6.4-8.2) L 06/16/19 05:45 Albumin 2.1 g/dL (3.4-5.0) L 06/16/19 05:45 Globulin 3.8 g/dL (2.5-4.5) 06/16/19 05:45 Albumin/Globulin Ratio 0.6 Ratio (1.1-2.1) L 06/16/19 05:45 Specimen Type Catherized urine 06/11/19 15:50 Urine Color Dark yellow (YELLOW) 06/11/19 15:50 Urine Appearance Cloudy (CLEAR) 06/11/19 15:50 Urine pH 5.0 (5.0 - 8.0) 06/11/19 15:50 Ur Specific [place] 1.025 (1.000-1.030) 06/11/19 15:50 Urine Protein 3+ (NEGATIVE) 06/11/19 15:50 Urine Glucose (UA) Negative (NEGATIVE) 06/11/19 15:50 Urine Ketones Negative (NEGATIVE) 06/11/19 15:50 Urine Occult Blood 2+ (NEGATIVE) 06/11/19 15:50 Urine Nitrite Negative (NEGATIVE) 06/11/19 15:50 Urine Bilirubin Negative (NEGATIVE) 06/11/19 15:50 Urine Urobilinogen Normal (NORMAL) 06/11/19 15:50 Ur Leukocyte Esterase 3+ (NEGATIVE) 06/11/19 15:50 Urine RBC 30-50 /HPF (0-3) A 06/11/19 15:50 Urine WBC Tntc /HPF (0-5) A 06/11/19 15:50 Ur Squamous Epith Cells Few /HPF (NEGATIVE) 06/11/19 15:50 Urine Bacteria 2+ /HPF (NEGATIVE) 06/11/19 15:50 Ur Culture Indicated? Yes/culture set up 06/11/19 15:50 RSV Nasal Swab Negative (NEGATIVE) 06/12/19 11:39 Stool Description 5 g. green/unformed 06/14/19 00:20 Stl Occult Blood (IFOB) Negative (NEGATIVE) 06/14/19 00:20 - Plan (1) Bronchopneumonia Status: Acute Plan: IV FORTAZ, IV LEVAQUIN, D5W AT 80 ML/HR, RESPIRATORY TX, SUPPLEMENTAL OXYGEN, AND HOME MEDICATIONS WERE RESUMED (2) Urinary tract infection Status: Acute Qualifiers: Urinary tract infection type: site unspecified Hematuria presence: without hematuria Qualified Code(s): N39.0 - Urinary tract infection, site not specified Plan: IV FORTAZ, IV LEVAQUIN, CONTINUE TO MONITOR (3) Hypernatremia Status: Acute Plan: D5W AT 80 ML/HR, CONTINUE TO MONITOR
[2019-06-16] MEDS ORDERED: LEXAPRO ONE (20:13)
[2019-06-16] MEDS: DESYREL PO SCH (21:00)
[2019-06-16] MEDS: KLONOPIN TAB 0.5 MG PO SCH (21:01)
[2019-06-16] MEDS: LEXAPRO PO SCH (21:01)
[2019-06-16] MEDS: RisperDAL TAB 1 MG PO SCH (21:03)
[2019-06-16] MEDS: TAMIFLU PO SCH (21:03)
[2019-06-16] MEDS: ZOCOR TAB 20 MG PO SCH (21:03)
[2019-06-16] MEDS: ULTRAM PO PRN (21:03)
[2019-06-16] MEDS: ZYLOPRIM PO SCH (21:04)
[2019-06-17] MEDS: D5W 1000 ML IV 1,000 ML IV SCH ×2 (04:02→14:59)
[2019-06-17 05:24] LABS: BASOPHILS # (AUTO) 0.1 X10^3/uL (0.0-0.1); BASOPHILS % (AUTO) 0.4 % (0.2-1.0); EOSINOPHILS # (AUTO) 0.1 x10^3/uL (0.0-0.2); EOSINOPHILS % (AUTO) 0.7 % (0.9-2.9); HEMATOCRIT 27.6 % (36.0-47.0); HEMOGLOBIN 9.2 g/dL (12.0-16.0); LYMPHOCYTES # (AUTO) 2.5 X10^3/uL (1.3-2.9); LYMPHOCYTES % (AUTO) 16.3 % (21.0-51.0); MEAN CORPUSCULAR HEMOGLOBIN 32.5 pg (27.0-34.0); MEAN CORPUSCULAR HGB CONC 33.6 g/dL (33.0-35.0); MEAN CORPUSCULAR VOLUME 96.8 fL (80.0-100.0); MEAN PLATELET VOLUME 8.2 fL (7.4-11.0); MONOCYTES # (AUTO) 0.7 x10^3/uL (0.3-0.8); MONOCYTES % (AUTO) 4.3 % (0.0-13.0); NEUTROPHILS % (AUTO) 78.3 % (42.0-75.0); PLATELET COUNT 187 X10^3/uL (150.0-450.0); RED BLOOD COUNT 2.85 X10^6/uL (3.5-5.4); RED CELL DISTRIBUTION WIDTH 15.1 % (11.6-16.5); WHITE BLOOD COUNT 15.4 X10^3/uL (3.6-10.0)
[2019-06-17 05:39] LABS: ALANINE AMINOTRANSFERASE 23 Units/L (12-78); ALKALINE PHOSPHATASE 43 Units/L (46-116); ASPARTATE AMINO TRANSFERASE 15 Units/L (15-37); BLOOD UREA NITROGEN 9 mg/dL (7-18); CALCIUM 8.3 mg/dL (8.5-10.1); CARBON DIOXIDE 25.8 mmol/L (21-32); CHLORIDE 104 mmol/L (98-107); COR CA(FOR HYPOALB) 9.9 mg/dL (8.5-10.1); COR NA(FOR HYPERGLY) 137 mmol/L (136-145); CREATININE 0.99 mg/dL (0.55-1.02); SODIUM 137 mmol/L (136-145); TOTAL PROTEIN 5.9 g/dL (6.4-8.2); eGFR NON BLACK RACES 58 (>60)
[2019-06-17] MEDS ORDERED: ZESTRIL TAB 20 MG ONE (08:10)
[2019-06-17] MEDS: COLACE CAP 100 MG PO SCH (08:50)
[2019-06-17] MEDS: REQUIP PO SCH ×2 (08:50→20:38)
[2019-06-17] MEDS: PriLOSEC PO SCH ×2 (08:51→20:38)
[2019-06-17] MEDS: VSL#3 PO SCH (08:51)
[2019-06-17] MEDS: ANTIVERT TAB 25 MG PO SCH (08:52)
[2019-06-17] MEDS: SYNTHROID 125 mcg TAB PO SCH (08:52)
[2019-06-17] MEDS: HEMOCYTE-PLUS PO SCH (08:52)
[2019-06-17] MEDS: PEPCID TAB 20 MG PO SCH (08:53)
[2019-06-17] MEDS: TAB-A-VITE PO SCH (08:53)
[2019-06-17] MEDS: MEGACE PO SCH ×2 (08:53→20:39)
[2019-06-17] MEDS: ZESTRIL TAB 20 MG PO SCH (08:54)
[2019-06-17] MEDS: ROBITUSSIN DM PO SCH ×4 (08:55→20:40)
[2019-06-17] MEDS: INVANZ INJ 1 GM VIAL 1 GM in NS 100 ML IV + SPIKE MINIBAG* 100 ML IV SCH (08:57)
[2019-06-17] MEDS: LOVENOX INJ 30 MG SYR SC SCH (08:58)
[2019-06-17] MEDS: MIRALAX POWDER (1 DOSE 17 G) PO SCH (08:59)
[2019-06-17] MEDS: NYSTATIN POWDER TOP SCH ×2 (08:59→20:40)
[2019-06-17] MEDS: LEVAQUIN PREMIX IV 750 MG 750 MG/150 ML BAG IV SCH (09:54)
[2019-06-17] MEDS: ULTRAM PO PRN (12:35)
[2019-06-17] MEDS ORDERED: LEXAPRO ONE (20:24)
[2019-06-17] MEDS: LEXAPRO PO SCH (20:37)
[2019-06-17] MEDS: TAMIFLU PO SCH (20:37)
[2019-06-17] MEDS: RisperDAL TAB 1 MG PO SCH (20:37)
[2019-06-17] MEDS: ZOCOR TAB 20 MG PO SCH (20:38)
[2019-06-17] MEDS: ZYLOPRIM PO SCH (20:39)
[2019-06-17] MEDS: DESYREL PO SCH (20:39)
[2019-06-17] MEDS: KLONOPIN TAB 0.5 MG PO SCH (20:40)
[2019-06-17] MEDS ORDERED: BUTT CREAM (COMPOUND) TOP PRN (22:09)
[2019-06-18 05:05] LABS: BASOPHILS % (AUTO) 0.2 % (0.2-1.0); EOSINOPHILS # (AUTO) 0.1 x10^3/uL (0.0-0.2); EOSINOPHILS % (AUTO) 1.3 % (0.9-2.9); HEMATOCRIT 23.7 % (36.0-47.0); HEMOGLOBIN 8.2 g/dL (12.0-16.0); LYMPHOCYTES # (AUTO) 2.7 X10^3/uL (1.3-2.9); LYMPHOCYTES % (AUTO) 25.9 % (21.0-51.0); MEAN CORPUSCULAR HEMOGLOBIN 33.4 pg (27.0-34.0); MEAN CORPUSCULAR HGB CONC 34.7 g/dL (33.0-35.0); MEAN CORPUSCULAR VOLUME 96.3 fL (80.0-100.0); MEAN PLATELET VOLUME 7.9 fL (7.4-11.0); MONOCYTES # (AUTO) 0.5 x10^3/uL (0.3-0.8); MONOCYTES % (AUTO) 4.4 % (0.0-13.0); NEUTROPHILS # (AUTO) 7.2 x10^3/uL (2.2-4.8); NEUTROPHILS % (AUTO) 68.2 % (42.0-75.0); PLATELET COUNT 186 X10^3/uL (150.0-450.0); RED BLOOD COUNT 2.46 X10^6/uL (3.5-5.4); WHITE BLOOD COUNT 10.6 X10^3/uL (3.6-10.0)
[2019-06-18 05:10] LABS: ALANINE AMINOTRANSFERASE 16 Units/L (12-78); ALBUMIN 1.9 g/dL (3.4-5.0); ALKALINE PHOSPHATASE 39 Units/L (46-116); ASPARTATE AMINO TRANSFERASE 10 Units/L (15-37); BLOOD UREA NITROGEN 13 mg/dL (7-18); CALCIUM 8.2 mg/dL (8.5-10.1); CARBON DIOXIDE 23.7 mmol/L (21-32); CHLORIDE 99 mmol/L (98-107); COR CA(FOR HYPOALB) 9.9 mg/dL (8.5-10.1); CREATININE 1.26 mg/dL (0.55-1.02); SODIUM 130 mmol/L (136-145); TOTAL PROTEIN 5.4 g/dL (6.4-8.2); eGFR NON BLACK RACES 44 (>60)
[2019-06-18] MEDS: D5W 1000 ML IV 1,000 ML IV SCH ×2 (06:14→06:15)
[2019-06-18] MEDS ORDERED: GENTAMICIN TOPICAL OINT TOP SCH (09:00)
--- NOTE | 2019-06-18 09:50 | PCM.PROG ---
Progress Note - Progress Note for Day of Date of Exam: 06/17/19 - Subjective Subjective: IS BEING TREATED FOR BRONCHOPNEUMONIA, A URINARY TRACT INFECTION, AND HYPERNATREMIA. TODAY, SHE IS LYING IN BED WITH EYES CLOSED ON MORNING ROUNDS. SHE AWAKENS TO VERBAL STIMULI, BUT DOES NOT RESPOND VERBALLY. ON EXAMINATION, HEART IS REGULAR IN RATE AND RHYTHM. BILATERAL LUNGS ARE NOTED WITH DIMINISHED LUNG SOUNDS THROUGHOUT. ABDOMEN IS ROUND, SOFT, AND NOTED WITH SUPRAPUBIC TENDERNESS TO PALPATION. HER VITALS THIS MORNING ARE: 98.3-68-18-97%-135/61. LABS WERE OBTAINED. ABNORMAL LAB VALUES INCLUDE THE FOLLOWING: WBC 15.4, RBC 2.85, HGB 9.2, HCT 27.6, GLUCOSE 114, CALCIUM 8.3, ALK PHOS 43, TOTAL PROTEIN 5.9, ALBUMIN 2.0. A URINE CULTURE REVEALS GROWTH OF E.COLI. SHE IS CURRENTLY RECEIVING IV FORTAZ, IV LEVAQUIN, D5W AT 80 ML/HR, RESPIRATORY TX, SUPPLEMENTAL OXYGEN, AND HOME MEDICATIONS WERE RESUMED. WE WILL CONTINUE WITH CURRENT PLAN OF CARE TODAY. OTHERWISE, WE WILL FOLLOW UP WITH AM LABS AND CONTINUE TO MONITOR. - Past Medical Family Social History Past Med/Fam/Surg Hx: No changes since H&P Allergies: Allergies fluoxetine [From Prozac] Allergy (Verified 01/22/19 14:06) haloperidol [From Haldol] Allergy (Verified 01/23/19 17:38) - Review of Systems ROS: No change since H&P - Vital Signs and I&O's Vital Signs: Temperature 98.7 F Pulse Rate [Right Brachial] 77 Pulse Rate 90 Respiratory Rate 20 Blood Pressure [Left Arm] 98/53 Blood Pressure [Right Arm] 115/78 Blood Pressure [Left Calf] 108/53 Blood Pressure 147/71 O2 Sat by Pulse Oximetry 98 Intake and Output: Intake & Output 06/15/19 06/16/19 06/17/19 06/18/19 11:59 11:59 11:59 11:59 Intake Total 2690 / 2690 1118 / 1118 1578 / 1578 2650 / 2650 Balance 2690 / 2690 1118 / 1118 1578 / 1578 2650 / 2650 - Physical Exam Oriented: Not Oriented Eyes: Normal Ear: Normal Nose: Normal Throat: Normal Respiratory: Generalized, Diminished Cardiovascular: Normal : Normal Auscultation: Bowel Sounds: Normal Tenderness: Normal Skin: Normal Musculoskeletal: Normal Psychiatric: Normal Mood Description: Calm Affect: Normal Speech Pattern: Aphasic - Laboratory and Diagnostics Result Diagrams: 06/18/19 04:26 06/18/19 04:26 Labs: 06/16/19 18:30 Chest Gram Stain - Final 06/16/19 18:30 Chest Wound Culture - Preliminary 06/11/19 15:50 Urine,Catheterized Urine Culture - Final Escherichia Coli Laboratory WBC 10.6 X10^3/uL (3.6-10.0) H 06/18/19 04:26 RBC 2.46 X10^6/uL (3.5-5.4) L 06/18/19 04:26 Hgb 8.2 g/dL (12.0-16.0) L 06/18/19 04:26 Hct 23.7 % (36.0-47.0) L 06/18/19 04:26 MCV 96.3 fL (80.0-100.0) 06/18/19 04:26 MCH 33.4 pg (27.0-34.0) 06/18/19 04:26 MCHC 34.7 g/dL (33.0-35.0) 06/18/19 04:26 RDW 15.0 % (11.6-16.5) 06/18/19 04:26 Plt Count 186 X10^3/uL (150.0-450.0) 06/18/19 04:26 MPV 7.9 fL (7.4-11.0) 06/18/19 04:26 Neut % (Auto) 68.2 % (42.0-75.0) 06/18/19 04:26 Lymph % (Auto) 25.9 % (21.0-51.0) 06/18/19 04:26 [place] % (Auto) 4.4 % (0.0-13.0) 06/18/19 04:26 Eos % (Auto) 1.3 % (0.9-2.9) 06/18/19 04:26 Baso % (Auto) 0.2 % (0.2-1.0) 06/18/19 04:26 Neut # (Auto) 7.2 x10^3/uL (2.2-4.8) H 06/18/19 04:26 Lymph # (Auto) 2.7 X10^3/uL (1.3-2.9) 06/18/19 04:26 [place] # (Auto) 0.5 x10^3/uL (0.3-0.8) 06/18/19 04:26 Eos # (Auto) 0.1 x10^3/uL (0.0-0.2) 06/18/19 04:26 Baso # (Auto) 0.0 X10^3/uL (0.0-0.1) 06/18/19 04:26 Absolute Nucleated RBC 0.0 /100WBC 06/18/19 04:26 ESR 86 MM/HOUR (0-20) H 06/14/19 05:40 Sodium 130 mmol/L (136-145) L 06/18/19 04:26 Corrected Sodium TNP 06/18/19 04:26 Potassium 3.6 mmol/L (3.5-5.1) 06/18/19 04:26 Chloride 99 mmol/L (98-107) 06/18/19 04:26 Carbon Dioxide 23.7 mmol/L (21-32) 06/18/19 04:26 BUN 13 mg/dL (7-18) 06/18/19 04:26 Creatinine 1.26 mg/dL (0.55-1.02) H 06/18/19 04:26 Est GFR (MDRD) Af Amer 53 (>60) L 06/18/19 04:26 Est GFR (MDRD) Non-Af 44 (>60) L 06/18/19 04:26 Glucose 105 mg/dL (65-99) H 06/18/19 04:26 Calcium 8.2 mg/dL (8.5-10.1) L 06/18/19 04:26 Corrected Calcium 9.9 mg/dL (8.5-10.1) 06/18/19 04:26 Magnesium 1.8 mg/dL (1.7-2.9) 06/18/19 04:26 Ferritin 1778 ng/mL (8-252) H 06/12/19 05:28 Total Bilirubin 0.10 mg/dL (0.2-1.0) L 06/18/19 04:26 AST 10 Units/L (15-37) L 06/18/19 04:26 ALT 16 Units/L (12-78) 06/18/19 04:26 Alkaline Phosphatase 39 Units/L (46-116) L 06/18/19 04:26 Lactate Dehydrogenase 147 Units/L (81-234) 06/12/19 05:28 C-Reactive Protein 25.40 mg/L (0-3.0) H 06/14/19 05:40 Total Protein 5.4 g/dL (6.4-8.2) L 06/18/19 04:26 Albumin 1.9 g/dL (3.4-5.0) L 06/18/19 04:26 Globulin 3.5 g/dL (2.5-4.5) 06/18/19 04:26 Albumin/Globulin Ratio 0.5 Ratio (1.1-2.1) L 06/18/19 04:26 Specimen Type Catherized urine 06/11/19 15:50 Urine Color Dark yellow (YELLOW) 06/11/19 15:50 Urine Appearance Cloudy (CLEAR) 06/11/19 15:50 Urine pH 5.0 (5.0 - 8.0) 06/11/19 15:50 Ur Specific [place] 1.025 (1.000-1.030) 06/11/19 15:50 Urine Protein 3+ (NEGATIVE) 06/11/19 15:50 Urine Glucose (UA) Negative (NEGATIVE) 06/11/19 15:50 Urine Ketones Negative (NEGATIVE) 06/11/19 15:50 Urine Occult Blood 2+ (NEGATIVE) 06/11/19 15:50 Urine Nitrite Negative (NEGATIVE) 06/11/19 15:50 Urine Bilirubin Negative (NEGATIVE) 06/11/19 15:50 Urine Urobilinogen Normal (NORMAL) 06/11/19 15:50 Ur Leukocyte Esterase 3+ (NEGATIVE) 06/11/19 15:50 Urine RBC 30-50 /HPF (0-3) A 06/11/19 15:50 Urine WBC Tntc /HPF (0-5) A 06/11/19 15:50 Ur Squamous Epith Cells Few /HPF (NEGATIVE) 06/11/19 15:50 Urine Bacteria 2+ /HPF (NEGATIVE) 06/11/19 15:50 Ur Culture Indicated? Yes/culture set up 06/11/19 15:50 RSV Nasal Swab Negative (NEGATIVE) 06/12/19 11:39 Stool Description 5 g. green/unformed 06/14/19 00:20 Stl Occult Blood (IFOB) Negative (NEGATIVE) 06/14/19 00:20 - Plan (1) Bronchopneumonia Status: Acute Plan: IV FORTAZ, IV LEVAQUIN, D5W AT 80 ML/HR, RESPIRATORY TX, SUPPLEMENTAL OXYGEN, AND HOME MEDICATIONS WERE RESUMED (2) Urinary tract infection Status: Acute Qualifiers: Urinary tract infection type: site unspecified Hematuria presence: without hematuria Qualified Code(s): N39.0 - Urinary tract infection, site not specified Plan: IV FORTAZ, IV LEVAQUIN, CONTINUE TO MONITOR (3) Hypernatremia Status: Acute Plan: D5W AT 80 ML/HR, CONTINUE TO MONITOR
[2019-06-18] MEDS: INVANZ INJ 1 GM VIAL 1 GM in NS 100 ML IV + SPIKE MINIBAG* 100 ML IV SCH (09:57)
[2019-06-18] MEDS: PriLOSEC PO SCH (09:58)
[2019-06-18] MEDS: ANTIVERT TAB 25 MG PO SCH (09:58)
[2019-06-18] MEDS: COLACE CAP 100 MG PO SCH (09:58)
[2019-06-18] MEDS: PEPCID TAB 20 MG PO SCH (09:58)
[2019-06-18] MEDS: NYSTATIN POWDER TOP SCH (09:59)
[2019-06-18] MEDS: SYNTHROID 125 mcg TAB PO SCH (09:59)
[2019-06-18] MEDS: MEGACE PO SCH (09:59)
[2019-06-18] MEDS: HEMOCYTE-PLUS PO SCH (09:59)
[2019-06-18] MEDS: VSL#3 PO SCH (09:59)
[2019-06-18] MEDS: ROBITUSSIN DM PO SCH ×2 (10:00→13:00)
[2019-06-18] MEDS: REQUIP PO SCH (10:00)
[2019-06-18] MEDS: TAB-A-VITE PO SCH (10:00)
[2019-06-18] MEDS: MIRALAX POWDER (1 DOSE 17 G) PO SCH (10:01)
[2019-06-18] MEDS: ZESTRIL TAB 20 MG PO SCH (10:01)
[2019-06-18] MEDS: LOVENOX INJ 30 MG SYR SC SCH (10:49)
[2019-06-18 11:53] VITALS: BP 97/54
== END 2019-06-18 13:26 | DRG 194 ==
LOC: MED/SURG 15:11
PROVIDERS: ADMIT Internal Medicine; ATTEND Internal Medicine
DX: J18.0 Bronchopneumonia, unspecified organism; N39.0 Urinary tract infection, site not specified; R06.02 Shortness of breath; E78.2 Mixed hyperlipidemia; E87.0 Hyperosmolality and hypernatremia; I25.10 Atherosclerotic heart disease of native coronary artery without angina pectoris; E03.8 Other specified hypothyroidism; B96.29 Other Escherichia coli [E. coli] as the cause of diseases classified elsewhere; R50.9 Fever, unspecified; I10 Essential (primary) hypertension; L89.151 Pressure ulcer of sacral region, stage 1
CPT/HCPCS: 36415; 71010; 71045; 80053; 81001; 82270; 82728; 83615; 83735; 85025; 85652; 86140; 87070; 87075; 87086; 87088; 87186; 87205; 87420; 94760; A4222; G9035; J0713; J1335; J1642; J1650; J1956; J3475; J3480; J7050; J7060; S0179

== ENCOUNTER 2019-12-13 09:10 | Inpatient (IN) ==
[2019-12-13 11:15] LABS: BILIRUBIN,URINE NEGATIVE (NEGATIVE); BLOOD/HEMOGLOBIN,URINE 3+ (NEGATIVE); GLUCOSE, URINE NEGATIVE (NEGATIVE); KETONES,URINE NEGATIVE (NEGATIVE); LEUKOCYTE ESTERASE ,URINE 2+ (NEGATIVE); NITRITES,URINE POSITIVE (NEGATIVE); PROTEIN,URINE 3+ (NEGATIVE); UROBILINOGEN,URINE NORMAL (NORMAL)
[2019-12-13 11:23] LABS: APPEARANCE,URINE CLOUDY (CLEAR); COLOR,URINE YELLOW (YELLOW)
[2019-12-13 11:24] LABS: BACTERIA,URINE 4+ /HPF (NEGATIVE); SQUAMOUS EPITHELIAL CELL,UR RARE /HPF (NEGATIVE)
--- NOTE | 2019-12-13 13:18 | DR.H&P ---
H&P - History & Physical for Day of: H&P Date: 12/13/19 - Chief Complaint Chief Complaint: weakness, increased lethargy - History of Present Illness History of Present Illness: PT IS 79 WF ADMITTED FROM [place] WITH HYPERNATREMIA, FAILED OUTPT THERAPY. PT HAS PMH OF DEMENTIA, BED BOUND, HTN, OA. PT HAD COVID + IN SEPTEMBER WITH NO NEW CO FEVER, CCC. PT ADMITTED FOR TREATMENT OF ACUTE ILLNESS. - Past Medical History Past Medical History: Coronary Artery Disease, Hypertension, Dyslipidemia, Alzheimers, Anxiety, Hypothyroidism, Arthritis, Gout, CHF - Past Surgical History Surgical History: - Family History Family Medical History: Cancer, Coronary Artery Disease - Medications Home Medications: fluoxetine [From Prozac] Allergy (Verified 01/22/19 14:06) haloperidol [From Haldol] Allergy (Verified 01/23/19 17:38) - Review of Systems Constitutional: Fever, Weakness Eyes: No Symptoms Reported ENT: No Symptoms Reported Respiratory: No Symptoms Reported Cardiovascular: No Symptoms Reported Gastrointestinal: Other (POOR PO INTAKE) Genitourinary: Incontinence Musculoskeletal: No Symptoms Reported Skin: No Symptoms Reported Neurological: Weakness, Confusion - Physical Exam Vital Signs: Temperature 97.6 F Pulse Rate [Left Radial] 70 Respiratory Rate 20 Blood Pressure [Left Arm] 118/57 O2 Sat by Pulse Oximetry 98 Oriented: Not Oriented Eyes: Normal Ear: Normal Nose: Normal Throat: Dry Respiratory: Diminished Throughout Cardiovascular: Normal. negative: Edema : Normal Auscultation: Bowel Sounds: Normal Tenderness: Normal Skin: Decreased Turgur Musculoskeletal: Motor Deficit Psychiatric: Anxiety Mood Description: Anxious Affect: Anxious Speech Pattern: Inappropriate - Assessment/Plan (1) Hypernatremia Status: Acute Plan: ADMIT, GENTLE IV HYDRATION, ENCOURAGE ORAL HYDRATION WITH H20. IV D5W, STRICT I&OS, DAILY LABS. CXR ON ADMISSION, EKG ON ADMISSION. SUPPORTIVE CARE, VERIFY HOME MEDICATION (2) Urinary tract infection Qualifiers: Urinary tract infection type: site unspecified Hematuria presence: without hematuria Qualified Code(s): N39.0 - Urinary tract infection, site not specified Status: Acute (3) CKD (chronic kidney disease), stage III Status: Chronic - Allergies Allergies/Adverse Reactions: Allergies Allergy/AdvReac Type Severity Reaction Status Date / Time fluoxetine [From Prozac] Allergy Verified 01/22/19 14:06 haloperidol [From Haldol] Allergy Verified 01/23/19 17:38
--- NOTE | 2019-12-13 13:48 | RAD ---
HISTORYHypernatremiaSTUDYPortable AP [id number] heart size with essentially clear right lung. Slight interval increase in interstitial density in the left lower lung. No consolidation or pleural fluid evident. Stable position of left subclavian injection port.IMPRESSIONSlight interval increase in interstitial process left lower lung which could represent a developing inflammatory process. Correlate clinically with follow-up.Electronically signed by: VIVIAN ROWE (Dec 13, 2019 13:48:08)
[2019-12-13 14:02] VITALS: BMI 26.1
[2019-12-13] MEDS: ROCEPHIN VIAL 1 GRAM 1 G in NS 100 ML IV + SPIKE MINIBAG* 100 ML IV SCH (14:32)
[2019-12-13] MEDS: D5W 1000 ML IV 1,000 ML IV SCH (14:32)
[2019-12-13] MEDS ORDERED: PHARMACY CONSULT LTC MEDICATIONS XX SCH (15:00)
[2019-12-13] MEDS: DUONEB 0.5 MG/3 MG (3 mL) NEB SCH ×2 (16:24→21:33)
[2019-12-13] MEDS ORDERED: LEXAPRO ONE (20:12)
[2019-12-13] MEDS: DESYREL PO SCH (21:16)
[2019-12-13] MEDS: LEXAPRO PO SCH (21:18)
[2019-12-13] MEDS: ZOCOR TAB 20 MG PO SCH (21:18)
[2019-12-13] MEDS: ULTRAM PO PRN (21:19)
[2019-12-13] MEDS: PROTONIX TAB 40 MG PO SCH (21:19)
[2019-12-13] MEDS: PEPCID TAB 20 MG PO SCH (21:19)
[2019-12-14] MEDS: D5W 1000 ML IV 1,000 ML IV SCH ×2 (05:09→16:17)
[2019-12-14] MEDS: DUONEB 0.5 MG/3 MG (3 mL) NEB SCH ×3 (06:08→21:00)
[2019-12-14 06:50] LABS: BASOPHILS # (AUTO) 0.1 X10^3/uL (0.0-0.1); BASOPHILS % (AUTO) 0.4 % (0.2-1.0); EOSINOPHILS # (AUTO) 0.1 x10^3/uL (0.0-0.2); EOSINOPHILS % (AUTO) 0.6 % (0.9-2.9); HEMATOCRIT 25.4 % (36.0-47.0); HEMOGLOBIN 8.5 g/dL (12.0-16.0); LYMPHOCYTES # (AUTO) 2.1 X10^3/uL (1.3-2.9); LYMPHOCYTES % (AUTO) 17.4 % (21.0-51.0); MEAN CORPUSCULAR HEMOGLOBIN 33.4 pg (27.0-34.0); MEAN CORPUSCULAR HGB CONC 33.5 g/dL (33.0-35.0); MEAN CORPUSCULAR VOLUME 99.8 fL (80.0-100.0); MEAN PLATELET VOLUME 7.6 fL (7.4-11.0); MONOCYTES # (AUTO) 0.4 x10^3/uL (0.3-0.8); MONOCYTES % (AUTO) 3.7 % (0.0-13.0); NEUTROPHILS # (AUTO) 9.3 x10^3/uL (2.2-4.8); NEUTROPHILS % (AUTO) 77.9 % (42.0-75.0); PLATELET COUNT 259 X10^3/uL (150.0-450.0); RED BLOOD COUNT 2.54 X10^6/uL (3.5-5.4); WHITE BLOOD COUNT 11.9 X10^3/uL (3.6-10.0)
[2019-12-14 07:17] LABS: ALANINE AMINOTRANSFERASE 54 Units/L (12-78); ALBUMIN 2.2 g/dL (3.4-5.0); ALKALINE PHOSPHATASE 56 Units/L (46-116); ASPARTATE AMINO TRANSFERASE 19 Units/L (15-37); BLOOD UREA NITROGEN 21 mg/dL (7-18); CALCIUM 8.7 mg/dL (8.5-10.1); CARBON DIOXIDE 21.5 mmol/L (21-32); CHLORIDE 108 mmol/L (98-107); COR CA(FOR HYPOALB) 10.1 mg/dL (8.5-10.1); COR NA(FOR HYPERGLY) 143 mmol/L (136-145); CREATININE 0.88 mg/dL (0.55-1.02); SODIUM 143 mmol/L (136-145); eGFR NON BLACK RACES > 60 (>60)
[2019-12-14] MEDS ORDERED: POTASSIUM CHL 40 MEQ/NS 0.45% 500 ML IV PRN (07:38)
[2019-12-14] MEDS ORDERED: KLOR-CON PO PRN (07:38)
[2019-12-14] MEDS ORDERED: POTASSIUM CHLORIDE LIQ 20 MEQ UDC PO PRN (07:38)
[2019-12-14] MEDS ORDERED: POTASSIUM CHL 60 MEQ/NS 0.45% 500 ML IV PRN (07:38)
[2019-12-14] MEDS ORDERED: MICRO K EXTEN CAP 10 MEQ PO PRN (07:38)
[2019-12-14] MEDS ORDERED: K-DUR TAB 20 MEQ PO PRN (07:38)
[2019-12-14] MEDS ORDERED: PEPCID 20 MG IV PREMIX* 40 MG/100 ML BAG IV ONE (08:05)
[2019-12-14] MEDS ORDERED: KLOR-CON ONE (08:07)
[2019-12-14] MEDS ORDERED: ROCEPHIN 1 GRAM IV PREMIX 1 G/50 ML IV.SOLN. IV ONE (08:07)
[2019-12-14] MEDS: HEMOCYTE-PLUS PO SCH (08:34)
[2019-12-14] MEDS: PROTONIX TAB 40 MG PO SCH ×4 (08:34→21:31)
[2019-12-14] MEDS: PEPCID TAB 20 MG PO SCH ×4 (08:35→21:30)
[2019-12-14] MEDS: ROCEPHIN VIAL 1 GRAM 1 G in NS 100 ML IV + SPIKE MINIBAG* 100 ML IV SCH (08:37)
[2019-12-14] MEDS ORDERED: K-DUR TAB 20 MEQ PO ONE (11:50)
[2019-12-14] MEDS ORDERED: LASIX ONE (11:50)
[2019-12-14] MEDS ORDERED: LASIX IVP SCH (12:00)
[2019-12-14] MEDS ORDERED: K-DUR TAB 20 MEQ PO SCH (12:00)
[2019-12-14] MEDS: K-RIDER 10 MEQ/NS 100 ML 10 MEQ/100 ML BAG IV PRN ×5 (15:45→23:06)
[2019-12-14] MEDS: SYNTHROID 125 mcg TAB PO SCH (15:45)
[2019-12-14] MEDS ORDERED: LEXAPRO ONE (20:28)
[2019-12-14] MEDS: LEXAPRO PO SCH (21:29)
[2019-12-14] MEDS: ZOCOR TAB 20 MG PO SCH (21:29)
[2019-12-14] MEDS: DESYREL PO SCH (21:30)
[2019-12-15] MEDS: K-RIDER 10 MEQ/NS 100 ML 10 MEQ/100 ML BAG IV PRN (00:13)
[2019-12-15] MEDS: MAGNESIUM SULFATE 1 GRAM/100 mL PREMIX 1 GM/100 ML BAG IV PRN ×2 (01:27→02:35)
[2019-12-15] MEDS: DUONEB 0.5 MG/3 MG (3 mL) NEB SCH ×3 (05:30→22:12)
[2019-12-15] MEDS: D5W 1000 ML IV 1,000 ML IV SCH ×2 (06:03→20:00)
[2019-12-15 06:54] LABS: BASOPHILS # (AUTO) 0.1 X10^3/uL (0.0-0.1); BASOPHILS % (AUTO) 0.8 % (0.2-1.0); EOSINOPHILS # (AUTO) 0.1 x10^3/uL (0.0-0.2); EOSINOPHILS % (AUTO) 1.2 % (0.9-2.9); HEMATOCRIT 25.3 % (36.0-47.0); HEMOGLOBIN 8.7 g/dL (12.0-16.0); LYMPHOCYTES # (AUTO) 2.8 X10^3/uL (1.3-2.9); LYMPHOCYTES % (AUTO) 29.1 % (21.0-51.0); MEAN CORPUSCULAR HEMOGLOBIN 34.1 pg (27.0-34.0); MEAN CORPUSCULAR HGB CONC 34.2 g/dL (33.0-35.0); MEAN CORPUSCULAR VOLUME 99.7 fL (80.0-100.0); MONOCYTES # (AUTO) 0.4 x10^3/uL (0.3-0.8); MONOCYTES % (AUTO) 3.7 % (0.0-13.0); NEUTROPHILS # (AUTO) 6.2 x10^3/uL (2.2-4.8); NEUTROPHILS % (AUTO) 65.2 % (42.0-75.0); PLATELET COUNT 277 X10^3/uL (150.0-450.0); RED BLOOD COUNT 2.54 X10^6/uL (3.5-5.4); RED CELL DISTRIBUTION WIDTH 14.9 % (11.6-16.5); WHITE BLOOD COUNT 9.6 X10^3/uL (3.6-10.0)
[2019-12-15 07:21] LABS: ALANINE AMINOTRANSFERASE 40 Units/L (12-78); ALBUMIN 2.3 g/dL (3.4-5.0); ALKALINE PHOSPHATASE 50 Units/L (46-116); ASPARTATE AMINO TRANSFERASE 15 Units/L (15-37); BLOOD UREA NITROGEN 16 mg/dL (7-18); CALCIUM 9.2 mg/dL (8.5-10.1); CARBON DIOXIDE 20.1 mmol/L (21-32); CHLORIDE 107 mmol/L (98-107); COR CA(FOR HYPOALB) 10.6 mg/dL (8.5-10.1); COR NA(FOR HYPERGLY) 142 mmol/L (136-145); CREATININE 0.95 mg/dL (0.55-1.02); MAGNESIUM 2.7 mg/dL (1.7-2.9); SODIUM 141 mmol/L (136-145); TOTAL PROTEIN 7.1 g/dL (6.4-8.2); eGFR NON BLACK RACES > 60 (>60)
[2019-12-15] MEDS: ROCEPHIN VIAL 1 GRAM 1 G in NS 100 ML IV + SPIKE MINIBAG* 100 ML IV SCH (09:10)
[2019-12-15] MEDS: PROTONIX TAB 40 MG PO SCH ×2 (09:10→21:20)
[2019-12-15] MEDS: HEMOCYTE-PLUS PO SCH (09:10)
[2019-12-15] MEDS: SYNTHROID 125 mcg TAB PO SCH (09:10)
[2019-12-15] MEDS ORDERED: PROCALAMINE 3 % 1,000 ML IV SCH (10:00)
[2019-12-15] MEDS: PEPCID TAB 20 MG PO SCH ×3 (10:05→21:20)
[2019-12-15] MEDS ORDERED: PATIENT'S HOME MEDICATION (Levocetirizine 5 MG) PO SCH (10:30)
--- NOTE | 2019-12-15 10:35 | RAD ---
HISTORYSOBSTUDYCHEST, 1 VIEWCOMPARISONSeptember 2019FINDINGSThe stable as a left-sided Port-A-Cath is midline. The cardiac silhouette is unremarkable . The lungs ar demonstrate stable opacity in the left lower lobe unchanged from prior. The bony thorax is unremarkable.IMPRESSIONStable chestElectronically signed by: JAMIL ZHENG (Dec 15, 2019 10:35:24)
[2019-12-15] MEDS ORDERED: TAB-A-VITE PO ONE (12:03)
[2019-12-15] MEDS ORDERED: COLACE CAP 100 MG PO ONE (12:03)
[2019-12-15] MEDS ORDERED: MIRALAX POWDER (1 DOSE 17 G) ONE (12:04)
--- NOTE | 2019-12-15 12:05 | PCM.PROG ---
Progress Note - Progress Note for Day of Date of Exam: 12/15/19 - Subjective Subjective: WAS ADMITTED ON 12/13/19 WITH BRONCHOPNEUMONIA, HYPERNATREMIA, URINARY TRACT INFECTION, AND ALTERED MENTAL STATUS. SHE HAS A HISTORY OF DEMENTIA AND IS BED BOUND. PATIENTS SISTER HAS BEEN STAYING WITH HER AND REPORTS THAT SHE HAS HAD DECREASED ORAL INTAKE. SHE WAS TREATED WITH D5W INFUSION X 3 DAYS OUTPATIENT PRIOR TO ADMISSION. TODAY, SHE IS ALERT, LYING IN BED ON MORNING ROUNDS. SHE LOOKS AROUND WHEN SPOKEN TO AND DOES RESPOND VERBALLY, HOWEVER, RESPONSES ARE INAPPROPRIATE. PATIENTS SISTER REPORTS THAT SHE HAS HAD A NON-PRODUCTIVE COUGH. ON EXAMINATION, HEART IS REGULAR IN RATE AND RHYTHM. BILATERAL LUNGS ARE NOTED WITH DIMINISHED LUNG SOUNDS THROUGHOUT. ABDOMEN IS ROUND, SOFT, AND NON-TENDER WITH NORMAL BOWEL SOUNDS NOTED IN ALL QUADRANTS. DUPPER AND LOWER EXTREMITY GENERALIZED WEAKNESS NOTED. HER VITALS THIS MORNING ARE: 98.7-72-20-100%RA-140/56. LABS WERE OBTAINED. ABNORMAL LAB VALUES INCLUDE THE FOLLOWING: RBC 2.54, HGB 8.7, HCT 25.3, CARBON DIOXIDE 20.1, GLUCOSE 131, ALBUMIN 2.3, GLOBULIN 4.8. URINE CULTURE REVEALS GROWTH OF E.COLI. BLOOD CULTURES ARE PENDING. PRELIMINARY BLOOD CULTURE RESULTS REPORT GROWTH OF GRAM POSITIVE COCCI. A CHEST XRAY WAS OBTAINED THIS MORNING AND REVEALED: The stable as a left-sided Port-A-Cath is midline. The cardiac silhouette is unremarkable. The lungs demonstrate stable opacity in the left lower lobe unchanged from prior. The bony thorax is unremarkable. SHE IS CURRENTLY RECEIVING D5W AT 50 ML/HR, ROCEPHIN 1G IV DAILY, DUONEBS TID, THE POTASSIUM AND MAGNESIUM PROTOCOLS, AND HER HOME MEDICATIONS WERE RESUMED. TODAY, WE WILL ADD PROCALAMINE AT 40 ML/HR AND ALBUMIN 25% IV DAILY. OTHERWISE, WE WILL CONTINUE WITH CURRENT PLAN OF CARE TODAY. WE WILL FOLLOW UP WITH AM LABS AND CONTINUE TO MONITOR. - Past Medical Family Social History Past Med/Fam/Surg Hx: No changes since H&P Allergies: Allergies fluoxetine [From Prozac] Allergy (Verified 01/22/19 14:06) haloperidol [From Haldol] Allergy (Verified 01/23/19 17:38) - Review of Systems ROS: No change since H&P - Vital Signs and I&O's Vital Signs: Temperature 98.7 F Pulse Rate [Left Radial] 72 Pulse Rate 72 Respiratory Rate 20 Blood Pressure [Left Arm] 140/56 O2 Sat by Pulse Oximetry 100 Intake and Output: Intake & Output 12/12/19 12/13/19 12/14/19 12/15/19 11:59 11:59 11:59 11:59 Intake Total 1890 / 1890 2890 / 2890 Output Total Balance 1889 2890 / 2890 - Physical Exam Oriented: Not Oriented Eyes: Normal Ear: Normal Nose: Normal Throat: Dry Cardiovascular: Normal. negative: Edema : Normal Auscultation: Bowel Sounds: Normal Palpation: Normal Tenderness: Normal Skin: Decreased Turgur Musculoskeletal: Motor Deficit Psychiatric: Anxiety Mood Description: Anxious Affect: Anxious Speech Pattern: Unclear - Laboratory and Diagnostics Result Diagrams: 12/15/19 06:30 12/15/19 06:30 Labs: 12/13/19 13:30 Blood Blood Culture - Preliminary 12/13/19 13:47 Blood Blood Culture - Preliminary 12/13/19 11:09 Urine,Clean Catch Urine Culture - Final Escherichia Coli Laboratory WBC 9.6 X10^3/uL (3.6-10.0) 12/15/19 06:30 RBC 2.54 X10^6/uL (3.5-5.4) L 12/15/19 06:30 Hgb 8.7 g/dL (12.0-16.0) L 12/15/19 06:30 Hct 25.3 % (36.0-47.0) L 12/15/19 06:30 MCV 99.7 fL (80.0-100.0) 12/15/19 06:30 MCH 34.1 pg (27.0-34.0) H 12/15/19 06:30 MCHC 34.2 g/dL (33.0-35.0) 12/15/19 06:30 RDW 14.9 % (11.6-16.5) 12/15/19 06:30 Plt Count 277 X10^3/uL (150.0-450.0) 12/15/19 06:30 MPV 7.0 fL (7.4-11.0) L 12/15/19 06:30 Neut % (Auto) 65.2 % (42.0-75.0) 12/15/19 06:30 Lymph % (Auto) 29.1 % (21.0-51.0) 12/15/19 06:30 [place] % (Auto) 3.7 % (0.0-13.0) 12/15/19 06:30 Eos % (Auto) 1.2 % (0.9-2.9) 12/15/19 06:30 Baso % (Auto) 0.8 % (0.2-1.0) 12/15/19 06:30 Neut # (Auto) 6.2 x10^3/uL (2.2-4.8) H 12/15/19 06:30 Lymph # (Auto) 2.8 X10^3/uL (1.3-2.9) 12/15/19 06:30 [place] # (Auto) 0.4 x10^3/uL (0.3-0.8) 12/15/19 06:30 Eos # (Auto) 0.1 x10^3/uL (0.0-0.2) 12/15/19 06:30 Baso # (Auto) 0.1 X10^3/uL (0.0-0.1) 12/15/19 06:30 Absolute Nucleated RBC 0.0 /100WBC 12/15/19 06:30 Sodium 141 mmol/L (136-145) 12/15/19 06:30 Corrected Sodium 142 mmol/L (136-145) 12/15/19 06:30 Potassium 3.6 mmol/L (3.5-5.1) 12/15/19 06:30 Chloride 107 mmol/L (98-107) 12/15/19 06:30 Carbon Dioxide 20.1 mmol/L (21-32) L 12/15/19 06:30 BUN 16 mg/dL (7-18) 12/15/19 06:30 Creatinine 0.95 mg/dL (0.55-1.02) 12/15/19 06:30 Est GFR (MDRD) Af Amer > 60 (>60) 12/15/19 06:30 Est GFR (MDRD) Non-Af > 60 (>60) 12/15/19 06:30 Glucose 131 mg/dL (65-99) H 12/15/19 06:30 Calcium 9.2 mg/dL (8.5-10.1) 12/15/19 06:30 Corrected Calcium 10.6 mg/dL (8.5-10.1) H 12/15/19 06:30 Magnesium 2.7 mg/dL (1.7-2.9) 12/15/19 06:30 Total Bilirubin 0.20 mg/dL (0.2-1.0) 12/15/19 06:30 AST 15 Units/L (15-37) 12/15/19 06:30 ALT 40 Units/L (12-78) 12/15/19 06:30 Alkaline Phosphatase 50 Units/L (46-116) 12/15/19 06:30 Total Protein 7.1 g/dL (6.4-8.2) 12/15/19 06:30 Albumin 2.3 g/dL (3.4-5.0) L 12/15/19 06:30 Globulin 4.8 g/dL (2.5-4.5) H 12/15/19 06:30 Albumin/Globulin Ratio 0.5 Ratio (1.1-2.1) L 12/15/19 06:30 Specimen Type Catherized urine 12/13/19 11:09 Urine Color Yellow (YELLOW) 12/13/19 11:09 Urine Appearance Cloudy (CLEAR) 12/13/19 11:09 Urine pH 5.0 (5.0 - 8.0) 12/13/19 11:09 Ur Specific [place] 1.020 (1.000-1.030) 12/13/19 11:09 Urine Protein 3+ (NEGATIVE) 12/13/19 11:09 Urine Glucose (UA) Negative (NEGATIVE) 12/13/19 11:09 Urine Ketones Negative (NEGATIVE) 12/13/19 11:09 Urine Occult Blood 3+ (NEGATIVE) 12/13/19 11:09 Urine Nitrite Positive (NEGATIVE) 12/13/19 11:09 Urine Bilirubin Negative (NEGATIVE) 12/13/19 11:09 Urine Urobilinogen Normal (NORMAL) 12/13/19 11:09 Ur Leukocyte Esterase 2+ (NEGATIVE) 12/13/19 11:09 Urine RBC 5-10 /HPF (0-3) A 12/13/19 11:09 Urine WBC Tntc /HPF (0-5) A 12/13/19 11:09 Ur Squamous Epith Cells Rare /HPF (NEGATIVE) 12/13/19 11:09 Urine Bacteria 4+ /HPF (NEGATIVE) 12/13/19 11:09 Ur Culture Indicated? No/not indicated 12/13/19 11:09 - Plan (1) Bronchopneumonia Status: Acute Plan: D5W AT 50 ML/HR, ROCEPHIN 1G IV DAILY, DUONEBS TID, THE POTASSIUM AND MAGNESIUM PROTOCOLS, AND HER HOME MEDICATIONS WERE RESUMED. TODAY, WE WILL ADD PROCALAMINE AT 40 ML/HR AND ALBUMIN 25% IV DAILY. (2) Hypernatremia Status: Acute (3) Urinary tract infection Status: Acute Qualifiers: Urinary tract infection type: site unspecified Hematuria presence: without hematuria Qualified Code(s): N39.0 - Urinary tract infection, site not specified (4) Sepsis Status: Acute Qualifiers: Sepsis type: sepsis due to unspecified organism Sepsis acute organ dysfunction status: unspecified Qualified Code(s): A41.9 - Sepsis, unspecified organism
[2019-12-15] MEDS: TAB-A-VITE PO SCH (12:15)
[2019-12-15] MEDS: MIRALAX POWDER (1 DOSE 17 G) PO SCH (12:15)
[2019-12-15] MEDS: ALBUMIN HUMAN 25%- 100 ML 100 ML IV SCH (12:15)
[2019-12-15] MEDS: COLACE CAP 100 MG PO SCH (12:33)
[2019-12-15] MEDS: ULTRAM PO PRN ×2 (13:31→21:21)
[2019-12-15] MEDS ORDERED: LEXAPRO ONE (20:41)
[2019-12-15] MEDS ORDERED: ZYLOPRIM PO SCH (21:00)
[2019-12-15] MEDS ORDERED: PATIENT'S HOME MEDICATION (Melatonin 10 MG) PO SCH (21:00)
[2019-12-15] MEDS: LEXAPRO PO SCH (21:19)
[2019-12-15] MEDS: ZOCOR TAB 20 MG PO SCH (21:20)
[2019-12-15] MEDS: DESYREL PO SCH (21:20)
[2019-12-16] MEDS: DUONEB 0.5 MG/3 MG (3 mL) NEB SCH ×2 (06:26→13:30)
[2019-12-16 07:04] LABS: ALANINE AMINOTRANSFERASE 38 Units/L (12-78); ALBUMIN 2.8 g/dL (3.4-5.0); ALKALINE PHOSPHATASE 46 Units/L (46-116); ASPARTATE AMINO TRANSFERASE 16 Units/L (15-37); BLOOD UREA NITROGEN 16 mg/dL (7-18); CALCIUM 9.8 mg/dL (8.5-10.1); CARBON DIOXIDE 23.6 mmol/L (21-32); CHLORIDE 107 mmol/L (98-107); COR CA(FOR HYPOALB) 10.8 mg/dL (8.5-10.1); CREATININE 0.86 mg/dL (0.55-1.02); SODIUM 140 mmol/L (136-145); TOTAL PROTEIN 7.6 g/dL (6.4-8.2); eGFR NON BLACK RACES > 60 (>60)
[2019-12-16 07:09] LABS: BASOPHILS # (AUTO) 0.1 X10^3/uL (0.0-0.1); BASOPHILS % (AUTO) 0.7 % (0.2-1.0); EOSINOPHILS # (AUTO) 0.1 x10^3/uL (0.0-0.2); EOSINOPHILS % (AUTO) 1.5 % (0.9-2.9); HEMATOCRIT 25.9 % (36.0-47.0); HEMOGLOBIN 8.7 g/dL (12.0-16.0); LYMPHOCYTES # (AUTO) 2.4 X10^3/uL (1.3-2.9); LYMPHOCYTES % (AUTO) 29.4 % (21.0-51.0); MEAN CORPUSCULAR HEMOGLOBIN 33.5 pg (27.0-34.0); MEAN CORPUSCULAR HGB CONC 33.7 g/dL (33.0-35.0); MEAN CORPUSCULAR VOLUME 99.6 fL (80.0-100.0); MEAN PLATELET VOLUME 7.1 fL (7.4-11.0); MONOCYTES # (AUTO) 0.4 x10^3/uL (0.3-0.8); MONOCYTES % (AUTO) 4.4 % (0.0-13.0); NEUTROPHILS # (AUTO) 5.3 x10^3/uL (2.2-4.8); PLATELET COUNT 303 X10^3/uL (150.0-450.0); RED CELL DISTRIBUTION WIDTH 14.9 % (11.6-16.5); WHITE BLOOD COUNT 8.3 X10^3/uL (3.6-10.0)
[2019-12-16] MEDS ORDERED: INVANZ INJ 1 GM VIAL 1 GM in NS 100 ML IV + SPIKE MINIBAG* 100 ML IV SCH (09:00)
[2019-12-16] MEDS: ALBUMIN HUMAN 25%- 100 ML 100 ML IV SCH (09:03)
[2019-12-16] MEDS: HEMOCYTE-PLUS PO SCH (09:04)
[2019-12-16] MEDS: PROTONIX TAB 40 MG PO SCH (09:04)
[2019-12-16] MEDS: COLACE CAP 100 MG PO SCH (09:04)
[2019-12-16] MEDS: MIRALAX POWDER (1 DOSE 17 G) PO SCH (09:05)
[2019-12-16] MEDS: TAB-A-VITE PO SCH (09:05)
[2019-12-16] MEDS: PEPCID TAB 20 MG PO SCH (09:05)
[2019-12-16 14:14] VITALS: BP 125/58
== END 2019-12-16 01:45 | disposition home or self-care (01) | DRG 871 ==
LOC: MED/SURG 09:12
PROVIDERS: ADMIT Internal Medicine; ATTEND Internal Medicine
DX: Z74.01 Bed confinement status; B96.20 Unspecified Escherichia coli [E. coli] as the cause of diseases classified elsewhere; J18.0 Bronchopneumonia, unspecified organism; R41.82 Altered mental status, unspecified; F03.90 Unspecified dementia, unspecified severity, without behavioral disturbance, psychotic disturbance, mood disturbance, and anxiety; E78.5 Hyperlipidemia, unspecified; A41.02 Sepsis due to Methicillin resistant Staphylococcus aureus; E87.8 Other disorders of electrolyte and fluid balance, not elsewhere classified; E87.0 Hyperosmolality and hypernatremia; N18.3 Chronic kidney disease, stage 3 (moderate); N39.0 Urinary tract infection, site not specified; R26.81 Unsteadiness on feet; I25.10 Atherosclerotic heart disease of native coronary artery without angina pectoris; Z86.19 Personal history of other infectious and parasitic diseases; R13.10 Dysphagia, unspecified; I12.9 Hypertensive chronic kidney disease with stage 1 through stage 4 chronic kidney disease, or unspecified chronic kidney disease

== ENCOUNTER 2020-01-09 10:04 | Inpatient (IN) ==
[2020-01-09] MEDS ORDERED: NS 1000 ML 1,000 ML IV ONE (10:43)
[2020-01-09] MEDS ORDERED: CARDIZEM INJ 50 MG VIAL IVP ONE (10:44)
--- NOTE | 2020-01-09 10:50 | DR.GENAD ---
HPI Time Seen Time Seen by Provider: 01/09/20 10:39 PCP Primary Care Physician: GISSEL Complaint/Symptoms Chief Complaint:: GERARDO CALLED, STATED "PT WAS NOT ACTING JUST RIGHT, MEANING SHE WAS NOT HOLLARING OUT LIKE NORMAL." CALLED YESTERDAY, ORDERED LAB WORK AND URNIE. LAB RESULTS ELEVATED. CALLED THIS MORNING AND HE WANTED HER EVALUATED. Self Treatment fo Chief Complaint: CARDIAC MONTIOR SHOWED SVT AND A-FIB. HR IN THE 156 AND ELEVATED. PT IS SHAKING AND HOLLARING OUT. COVID-19 Coronavirus risk:travel/contact w/high risk person: No Has patient experienced Coronavirus symptoms: No Source History Provided: Jail Mode of Arrival Mode of Arrival: Stretcher Timing Onset of Chief Complaint: 01/08/20 PMH PMH Past Medical History: Yes Past Medical History: Alzheimers, Anxiety, Arthritis, CHF, Coronary Artery Disease, Dyslipidemia, Gout, Hypertension and Hypothyroidism Past Surgical History: Yes Surgical History: Unknown Family History History of Family Medical Conditions: Yes Family Medical History: [place] and Hypertension Social History Do you use any recreational Drugs:: No Travel Risk Coronavirus risk:travel/contact w/high risk person: No Has patient experienced Coronavirus symptoms: No Infectious screening In the last 2 months have you had wt loss of >10#?: NO Have you had fever, night sweats or hemotysis?: No Have you traveled outside the country in the last 6 months?: No Isolation: Standard PE Vital Signs Vitals: Temperature 99.5 F Pulse Rate 142 Respiratory Rate 26 Blood Pressure [Left Arm] 125/58 Blood Pressure 126/66 O2 Sat by Pulse Oximetry 98 COURSE Consultation Called: 13:40 Call Returned: 13:40 Consultation Comments: case discussed with DR. Sullivan admit to control heart rate and correct electrolytes. ROR Labs Reviewed Result Diagrams: 01/09/20 10:50 01/09/20 10:50 Laboratory: WBC 16.4 X10^3/uL (3.6-10.0) H 01/09/20 10:50 RBC 2.96 X10^6/uL (3.5-5.4) L 01/09/20 10:50 Hgb 9.3 g/dL (12.0-16.0) L 01/09/20 10:50 Hct 29.4 % (36.0-47.0) L 01/09/20 10:50 MCV 99.4 fL (80.0-100.0) 01/09/20 10:50 MCH 31.4 pg (27.0-34.0) 01/09/20 10:50 MCHC 31.6 g/dL (33.0-35.0) L 01/09/20 10:50 RDW 15.0 % (11.6-16.5) 01/09/20 10:50 Plt Count 481 X10^3/uL (150.0-450.0) H 01/09/20 10:50 MPV 7.0 fL (7.4-11.0) L 01/09/20 10:50 Neut % (Auto) 82.5 % (42.0-75.0) H 01/09/20 10:50 Lymph % (Auto) 12.7 % (21.0-51.0) L 01/09/20 10:50 [place] % (Auto) 3.7 % (0.0-13.0) 01/09/20 10:50 Eos % (Auto) 0.3 % (0.9-2.9) L 01/09/20 10:50 Baso % (Auto) 0.8 % (0.2-1.0) 01/09/20 10:50 Neut # (Auto) 13.6 x10^3/uL (2.2-4.8) H 01/09/20 10:50 Lymph # (Auto) 2.1 X10^3/uL (1.3-2.9) 01/09/20 10:50 [place] # (Auto) 0.6 x10^3/uL (0.3-0.8) 01/09/20 10:50 Eos # (Auto) 0.0 x10^3/uL (0.0-0.2) 01/09/20 10:50 Baso # (Auto) 0.1 X10^3/uL (0.0-0.1) 01/09/20 10:50 Absolute Nucleated RBC 0.0 /100WBC 01/09/20 10:50 Sodium 162 mmol/L (136-145) H* 01/09/20 10:50 Corrected Sodium 163 mmol/L (136-145) H 01/09/20 10:50 Potassium 2.9 mmol/L (3.5-5.1) L* 01/09/20 10:50 Chloride 124 mmol/L (98-107) H* 01/09/20 10:50 Carbon Dioxide 23.4 mmol/L (21-32) 01/09/20 10:50 BUN 26 mg/dL (7-18) H 01/09/20 10:50 Creatinine 1.34 mg/dL (0.55-1.02) H 01/09/20 10:50 Est GFR (MDRD) Af Amer 49 (>60) L 01/09/20 10:50 Est GFR (MDRD) Non-Af 41 (>60) L 01/09/20 10:50 Glucose 150 mg/dL (65-99) H 01/09/20 10:50 Calcium 9.2 mg/dL (8.5-10.1) 01/09/20 10:50 Corrected Calcium 10.8 mg/dL (8.5-10.1) H 01/09/20 10:50 Total Bilirubin 0.30 mg/dL (0.2-1.0) 01/09/20 10:50 AST 27 Units/L (15-37) 01/09/20 10:50 ALT 36 Units/L (12-78) 01/09/20 10:50 Alkaline Phosphatase 78 Units/L (46-116) 01/09/20 10:50 Creatine Kinase 22 Units/L (26-192) L 01/09/20 10:50 CK-MB (CK-2) < 1.0 ng/mL (0-4.0) 01/09/20 10:50 CK/CKMB % Calc 4.6 % (<4) 01/09/20 10:50 Troponin I 0.24 ng/mL (0-1.5) 01/09/20 10:50 Total Protein 7.8 g/dL (6.4-8.2) 01/09/20 10:50 Albumin 2.0 g/dL (3.4-5.0) L 01/09/20 10:50 Globulin 5.8 g/dL (2.5-4.5) H 01/09/20 10:50 Albumin/Globulin Ratio 0.3 Ratio (1.1-2.1) L 01/09/20 10:50 XRAY XRAY Interpreted by: Self X-ray Results: chest :bibasilar infiltrates, port a cath present Opioid Opioid Risk Tool Age ([place] box if 16-45): No History of Preadolescent Sexual Abuse: No Total: 0 Total Score Risk Category: Low Risk Copyright: Anthony JANG predicting aberrant behaviors Instructions Forms: Precautions for COVID19 Patient Portal Social Distancing
[2020-01-09] MEDS ORDERED: CARDIZEM INJ 50 MG VIAL ONE (10:55)
[2020-01-09] MEDS ORDERED: NS 1000 ML 1,000 ML ONE (10:56)
[2020-01-09 11:00] LABS: BASOPHILS # (AUTO) 0.1 X10^3/uL (0.0-0.1); BASOPHILS % (AUTO) 0.8 % (0.2-1.0); EOSINOPHILS % (AUTO) 0.3 % (0.9-2.9); HEMATOCRIT 29.4 % (36.0-47.0); HEMOGLOBIN 9.3 g/dL (12.0-16.0); LYMPHOCYTES # (AUTO) 2.1 X10^3/uL (1.3-2.9); LYMPHOCYTES % (AUTO) 12.7 % (21.0-51.0); MEAN CORPUSCULAR HEMOGLOBIN 31.4 pg (27.0-34.0); MEAN CORPUSCULAR HGB CONC 31.6 g/dL (33.0-35.0); MEAN CORPUSCULAR VOLUME 99.4 fL (80.0-100.0); MONOCYTES # (AUTO) 0.6 x10^3/uL (0.3-0.8); MONOCYTES % (AUTO) 3.7 % (0.0-13.0); NEUTROPHILS # (AUTO) 13.6 x10^3/uL (2.2-4.8); NEUTROPHILS % (AUTO) 82.5 % (42.0-75.0); PLATELET COUNT 481 X10^3/uL (150.0-450.0); RED BLOOD COUNT 2.96 X10^6/uL (3.5-5.4); WHITE BLOOD COUNT 16.4 X10^3/uL (3.6-10.0)
[2020-01-09] MEDS ORDERED: K-RIDER 10 MEQ/NS 100 ML 10 MEQ/100 ML BAG IV ONE (11:09)
[2020-01-09 11:18] LABS: ALANINE AMINOTRANSFERASE 36 Units/L (12-78); ALKALINE PHOSPHATASE 78 Units/L (46-116); ASPARTATE AMINO TRANSFERASE 27 Units/L (15-37); BLOOD UREA NITROGEN 26 mg/dL (7-18); CALCIUM 9.2 mg/dL (8.5-10.1); CARBON DIOXIDE 23.4 mmol/L (21-32); CKMB % 4.6 % (<4); COR CA(FOR HYPOALB) 10.8 mg/dL (8.5-10.1); COR NA(FOR HYPERGLY) 163 mmol/L (136-145); CREATINE KINASE 22 Units/L (26-192); CREATINE KINASE MB < 1.0 ng/mL (0-4.0); CREATININE 1.34 mg/dL (0.55-1.02); TOTAL PROTEIN 7.8 g/dL (6.4-8.2); TROPONIN I 0.24 ng/mL (0-1.5); eGFR NON BLACK RACES 41 (>60)
[2020-01-09] MEDS: K-RIDER 10 MEQ/NS 100 ML 10 MEQ/100 ML BAG IV SCH ×2 (11:18→23:19)
[2020-01-09 11:22] LABS: SODIUM 162 mmol/L (136-145)
[2020-01-09 11:23] LABS: CHLORIDE 124 mmol/L (98-107)
[2020-01-09] MEDS: CARDIZEM INJ 125 MG VIAL 125 MG in NS 100 ML IV 100 ML IV PRN ×2 (11:45→19:04)
[2020-01-09] MEDS ORDERED: GEODON INJ IM ONE ×2 (12:45→12:52)
[2020-01-09] MEDS: NS 1000 ML 1,000 ML IV SCH (13:36)
[2020-01-09] MEDS ORDERED: ROCEPHIN VIAL 1 GRAM IM ONE (13:51)
[2020-01-09] MEDS ORDERED: ROCEPHIN VIAL 1 GRAM ONE (13:56)
[2020-01-09] MEDS ORDERED: NS 1000 ML 1,000 ML IV SCH (14:00)
[2020-01-09 17:32] LABS: CALCIUM 8.5 mg/dL (8.5-10.1); CARBON DIOXIDE 24.6 mmol/L (21-32); CREATININE 1.25 mg/dL (0.55-1.02)
[2020-01-09 17:37] LABS: ALBUMIN 1.7 g/dL (3.4-5.0); COR CA(FOR HYPOALB) 10.3 mg/dL (8.5-10.1); TOTAL PROTEIN 6.8 g/dL (6.4-8.2)
[2020-01-09] MEDS ORDERED: POTASSIUM CHLORIDE LIQ 20 MEQ UDC PO PRN (18:20)
[2020-01-09] MEDS ORDERED: MICRO K EXTEN CAP 10 MEQ PO PRN (18:20)
[2020-01-09] MEDS ORDERED: KLOR-CON PO PRN (18:20)
[2020-01-09] MEDS ORDERED: POTASSIUM CHL 40 MEQ/NS 0.45% 500 ML IV PRN (18:20)
[2020-01-09] MEDS ORDERED: POTASSIUM CHL 60 MEQ/NS 0.45% 500 ML IV PRN (18:20)
[2020-01-09] MEDS ORDERED: NS 100 ML IV 100 ML IV ONE (18:24)
[2020-01-09] MEDS ORDERED: CARDIZEM INJ 125 MG VIAL ONE (18:24)
[2020-01-09] MEDS ORDERED: NS 500 ML IV 500 ML IV ONE (18:24)
[2020-01-09] MEDS: K-RIDER 10 MEQ/NS 100 ML 10 MEQ/100 ML BAG IV PRN ×5 (19:06→23:57)
[2020-01-10] MEDS: NS 1000 ML 1,000 ML IV SCH ×2 (00:39→05:19)
[2020-01-10] MEDS: CARDIZEM INJ 125 MG VIAL 125 MG in NS 100 ML IV 100 ML IV PRN ×3 (03:14→20:15)
[2020-01-10 09:12] LABS: ALBUMIN 1.7 g/dL (3.4-5.0); CALCIUM 8.3 mg/dL (8.5-10.1); CARBON DIOXIDE 21.8 mmol/L (21-32); COR CA(FOR HYPOALB) 10.1 mg/dL (8.5-10.1); CREATININE 1.39 mg/dL (0.55-1.02); TOTAL PROTEIN 7.1 g/dL (6.4-8.2)
[2020-01-10 09:16] LABS: BASOPHILS # (AUTO) 0.1 X10^3/uL (0.0-0.1); BASOPHILS % (AUTO) 0.5 % (0.2-1.0); EOSINOPHILS # (AUTO) 0.1 x10^3/uL (0.0-0.2); EOSINOPHILS % (AUTO) 0.8 % (0.9-2.9); HEMATOCRIT 24.8 % (36.0-47.0); HEMOGLOBIN 7.9 g/dL (12.0-16.0); LYMPHOCYTES # (AUTO) 1.2 X10^3/uL (1.3-2.9); LYMPHOCYTES % (AUTO) 7.7 % (21.0-51.0); MEAN CORPUSCULAR HEMOGLOBIN 31.9 pg (27.0-34.0); MEAN CORPUSCULAR HGB CONC 31.7 g/dL (33.0-35.0); MEAN CORPUSCULAR VOLUME 100.7 fL (80.0-100.0); MEAN PLATELET VOLUME 7.6 fL (7.4-11.0); MONOCYTES # (AUTO) 0.5 x10^3/uL (0.3-0.8); NEUTROPHILS # (AUTO) 13.3 x10^3/uL (2.2-4.8); PLATELET COUNT 375 X10^3/uL (150.0-450.0); RED BLOOD COUNT 2.46 X10^6/uL (3.5-5.4); RED CELL DISTRIBUTION WIDTH 15.5 % (11.6-16.5); WHITE BLOOD COUNT 15.1 X10^3/uL (3.6-10.0)
[2020-01-10] MEDS ORDERED: FERROUS FUMARATE 325 MG PO SCH (09:30)
[2020-01-10 09:34] VITALS: BMI 25.1
[2020-01-10 09:55] LABS: PLATELET MORPHOLOGY COMMENT NORMAL (NORMAL)
[2020-01-10] MEDS: D5W 1000 ML IV 1,000 ML IV SCH ×2 (10:49→22:19)
--- NOTE | 2020-01-10 10:50 | PCM.PROG ---
Progress Note Progress Note for Day of Date of Exam: 01/10/20 Subjective Subjective: Patient seen at bedside, sister present. She states patient was not able to get much sleep last night due to agitation. She is a resident of [facility] and was admitted yesterday due to lab abnormalities and new onset atrial fibrillation with RVR. She is currently on Cardizem drip at 15 and HR has been in 110-120s. Patient has severe dementia, does not talk much. Sister also reports poor appetite. Labs: Na: 163 from 165 K:3.3 from 2.7 Cl: 125 BUN/Cr: 24/.39 Glucose 213 Hgb 7.9 CXR: no acute infiltrates or effusion Plan: continue Cardizem drip, keep HR between 90-110. Resume home medications. Change IVF to D5, monitor labs closely. Add Ensure with each meal. Past Medical Family Social History Past Med/Fam/Surg Hx: No changes since H&P Allergies: Allergies fluoxetine [From Prozac] Allergy (Verified 01/22/19 14:06) haloperidol [From Haldol] Allergy (Verified 01/23/19 17:38) Review of Systems ROS: No change since H&P Vital Signs and I&O's Vital Signs: Temperature 98.7 F Pulse Rate [Left] 110 Pulse Rate 123 Respiratory Rate 24 Blood Pressure [Left Calf] 129/65 Blood Pressure [Left Arm] 127/63 Blood Pressure 135/99 O2 Sat by Pulse Oximetry 96 Intake and Output: Intake & Output 01/07/20 01/08/20 01/09/20 01/10/20 23:59 23:59 23:59 23:59 Intake Total 1375 / 1375 1305 / 1305 Balance 1375 / 1375 1305 / 1305 Physical Exam Oriented: Not Oriented and Unable to test Eyes: Normal Nose: Normal Throat: Dry Respiratory: Generalized and Diminished Cardiovascular: Tachycardia and Irregular Auscultation: Bowel Sounds: Normal Palpation: Normal Tenderness: Normal Skin: Decreased Turgur Psychiatric: Agitation Mood Description: Calm Affect: Quiet Speech Pattern: Unclear and Inappropriate Laboratory and Diagnostics Result Diagrams: 01/10/20 08:49 01/10/20 08:49 Labs: Laboratory WBC 15.1 X10^3/uL (3.6-10.0) H 01/10/20 08:49 RBC 2.46 X10^6/uL (3.5-5.4) L 01/10/20 08:49 Hgb 7.9 g/dL (12.0-16.0) L 01/10/20 08:49 Hct 24.8 % (36.0-47.0) L 01/10/20 08:49 MCV 100.7 fL (80.0-100.0) H 01/10/20 08:49 MCH 31.9 pg (27.0-34.0) 01/10/20 08:49 MCHC 31.7 g/dL (33.0-35.0) L 01/10/20 08:49 RDW 15.5 % (11.6-16.5) 01/10/20 08:49 Plt Count 375 X10^3/uL (150.0-450.0) 01/10/20 08:49 Plt Count Comment Adequate (ADEQUATE) 01/10/20 08:49 MPV 7.6 fL (7.4-11.0) 01/10/20 08:49 Neut % (Auto) 88.0 % (42.0-75.0) H 01/10/20 08:49 Lymph % (Auto) 7.7 % (21.0-51.0) L 01/10/20 08:49 [place] % (Auto) 3.0 % (0.0-13.0) 01/10/20 08:49 Eos % (Auto) 0.8 % (0.9-2.9) L 01/10/20 08:49 Baso % (Auto) 0.5 % (0.2-1.0) 01/10/20 08:49 Neut # (Auto) 13.3 x10^3/uL (2.2-4.8) H 01/10/20 08:49 Lymph # (Auto) 1.2 X10^3/uL (1.3-2.9) L 01/10/20 08:49 [place] # (Auto) 0.5 x10^3/uL (0.3-0.8) 01/10/20 08:49 Eos # (Auto) 0.1 x10^3/uL (0.0-0.2) 01/10/20 08:49 Baso # (Auto) 0.1 X10^3/uL (0.0-0.1) 01/10/20 08:49 Absolute Nucleated RBC 0.0 /100WBC 01/10/20 08:49 Plt Morphology Comment Normal (NORMAL) 01/10/20 08:49 RBC Morphology Normal (NORMAL) 01/10/20 08:49 Sodium 160 mmol/L (136-145) H* 01/10/20 08:49 Corrected Sodium 163 mmol/L (136-145) H 01/10/20 08:49 Potassium 3.3 mmol/L (3.5-5.1) L 01/10/20 08:49 Chloride 125 mmol/L (98-107) H* 01/10/20 08:49 Carbon Dioxide 21.8 mmol/L (21-32) 01/10/20 08:49 BUN 24 mg/dL (7-18) H 01/10/20 08:49 Creatinine 1.39 mg/dL (0.55-1.02) H 01/10/20 08:49 Est GFR (MDRD) Af Amer 47 (>60) L 01/10/20 08:49 Est GFR (MDRD) Non-Af 39 (>60) L 01/10/20 08:49 Glucose 213 mg/dL (65-99) H 01/10/20 08:49 Calcium 8.3 mg/dL (8.5-10.1) L 01/10/20 08:49 Corrected Calcium 10.1 mg/dL (8.5-10.1) 01/10/20 08:49 Magnesium 2.2 mg/dL (1.7-2.9) 01/09/20 17:50 Total Bilirubin 0.20 mg/dL (0.2-1.0) 01/10/20 08:49 AST 26 Units/L (15-37) 01/10/20 08:49 ALT 35 Units/L (12-78) 01/10/20 08:49 Alkaline Phosphatase 73 Units/L (46-116) 01/10/20 08:49 Creatine Kinase 22 Units/L (26-192) L 01/09/20 10:50 CK-MB (CK-2) < 1.0 ng/mL (0-4.0) 01/09/20 10:50 CK/CKMB % Calc 4.6 % (<4) 01/09/20 10:50 Troponin I 0.24 ng/mL (0-1.5) 01/09/20 10:50 Total Protein 7.1 g/dL (6.4-8.2) 01/10/20 08:49 Albumin 1.7 g/dL (3.4-5.0) L 01/10/20 08:49 Globulin 5.4 g/dL (2.5-4.5) H 01/10/20 08:49 Albumin/Globulin Ratio 0.3 Ratio (1.1-2.1) L 01/10/20 08:49 Plan (1) Atrial fibrillation with rapid ventricular response: Status: Acute (2) Hypernatremia: Status: Acute (3) Anemia: Status: Acute Qualifiers: Anemia type: unspecified type Qualified Code(s): D64.9 - Anemia, unspecified (4) Hypokalemia: Status: Acute (5) Altered mental status: Status: Acute Qualifiers: Altered mental status type: disorientation Qualified Code(s): R41.0 - Disorientation, unspecified (6) CKD (chronic kidney disease), stage III: Status: Chronic Qualifiers: Chronic kidney disease stage 3 subtype: unspecified whether 3a or 3b Qualified Code(s): N18.30 - Chronic kidney disease, stage 3 unspecified (7) Alzheimer's dementia: Status: Acute Qualifiers: Alzheimer's disease onset: unspecified onset Dementia behavioral disturbance: with behavioral disturbance Qualified Code(s): G30.9 - Alzheimer's disease, unspecified; F02.81 - Dementia in other diseases classified elsewhere with behavioral disturbance
[2020-01-10] MEDS: PROTONIX TAB 40 MG PO SCH ×2 (11:13→20:12)
[2020-01-10] MEDS: REQUIP PO SCH ×2 (11:13→20:12)
[2020-01-10] MEDS: ULTRAM PO PRN ×2 (11:14→20:13)
[2020-01-10] MEDS: K-RIDER 10 MEQ/NS 100 ML 10 MEQ/100 ML BAG IV SCH ×2 (11:14→22:19)
[2020-01-10] MEDS: HEMOCYTE-PLUS PO SCH (11:14)
[2020-01-10] MEDS ORDERED: VANCOMYCIN HCL 500 MG in D5W 100 ML IV 100 ML IV ONE (16:18)
[2020-01-10] MEDS ORDERED: VANCOMYCIN HCL ONE (17:05)
[2020-01-10] MEDS ORDERED: NS 250 ML IV 250 ML IV ONE (17:06)
[2020-01-10] MEDS: SEROquel TAB 25 mg PO SCH (17:52)
[2020-01-10] MEDS: ZOSYN VIAL 3.375 GRAMS 3.375 G in NS 100 ML IV + SPIKE MINIBAG* 100 ML IV SCH ×2 (17:52→21:25)
[2020-01-10] MEDS ORDERED: LEXAPRO ONE (20:06)
[2020-01-10] MEDS: DESYREL PO SCH (20:09)
[2020-01-10] MEDS: ZOCOR TAB 20 MG PO SCH (20:10)
[2020-01-10] MEDS: LEXAPRO PO SCH (20:10)
[2020-01-10] MEDS: K-DUR TAB 20 MEQ PO PRN (20:12)
[2020-01-10] MEDS: ZYLOPRIM PO SCH (20:14)
[2020-01-10] MEDS ORDERED: MAGNESIUM SULFATE 1 GRAM/100 mL PREMIX 1 GM/100 ML BAG IV PRN (20:35)
[2020-01-10] MEDS ORDERED: PATIENT'S HOME MEDICATION (Melatonin 10 MG) PO SCH (21:00)
[2020-01-10] MEDS: K-RIDER 10 MEQ/NS 100 ML 10 MEQ/100 ML BAG IV PRN (21:26)
--- NOTE | 2020-01-10 21:59 | RAD ---
HISTORYressp. distressSTUDYCHEST, 1 VIEWCOMPARISONChest x-ray dated January 08, 2020.FINDINGSThe patient is rotated. Stable appearance of a left chest Port-A-Cath. The cardiac silhouette is unchanged. Chronic emphysematous and interstitial lung changes. The lungs are clear without focal infiltrate, pneumothorax, or effusion. The bony thorax is unremarkable.IMPRESSIONNo acute cardiopulmonary disease.Electronically signed by: HOWIE MERCADO (Jan 10, 2020 21:57:35)
[2020-01-11] MEDS: CARDIZEM INJ 125 MG VIAL 125 MG in NS 100 ML IV 100 ML IV PRN ×2 (05:00→15:04)
[2020-01-11] MEDS: ZOSYN VIAL 3.375 GRAMS 3.375 G in NS 100 ML IV + SPIKE MINIBAG* 100 ML IV SCH (05:01)
[2020-01-11 06:42] LABS: BASOPHILS # (AUTO) 0.1 X10^3/uL (0.0-0.1); BASOPHILS % (AUTO) 0.5 % (0.2-1.0); EOSINOPHILS # (AUTO) 0.2 x10^3/uL (0.0-0.2); EOSINOPHILS % (AUTO) 1.1 % (0.9-2.9); HEMATOCRIT 22.7 % (36.0-47.0); HEMOGLOBIN 7.1 g/dL (12.0-16.0); LYMPHOCYTES # (AUTO) 1.5 X10^3/uL (1.3-2.9); LYMPHOCYTES % (AUTO) 10.2 % (21.0-51.0); MEAN CORPUSCULAR HEMOGLOBIN 31.8 pg (27.0-34.0); MEAN CORPUSCULAR HGB CONC 31.3 g/dL (33.0-35.0); MEAN CORPUSCULAR VOLUME 101.6 fL (80.0-100.0); MEAN PLATELET VOLUME 7.8 fL (7.4-11.0); MONOCYTES # (AUTO) 0.5 x10^3/uL (0.3-0.8); MONOCYTES % (AUTO) 3.3 % (0.0-13.0); NEUTROPHILS # (AUTO) 12.4 x10^3/uL (2.2-4.8); NEUTROPHILS % (AUTO) 84.9 % (42.0-75.0); PLATELET COUNT 294 X10^3/uL (150.0-450.0); RED BLOOD COUNT 2.24 X10^6/uL (3.5-5.4); RED CELL DISTRIBUTION WIDTH 15.6 % (11.6-16.5); WHITE BLOOD COUNT 14.7 X10^3/uL (3.6-10.0)
[2020-01-11 06:57] LABS: ALBUMIN 1.5 g/dL (3.4-5.0); CALCIUM 8.1 mg/dL (8.5-10.1); CARBON DIOXIDE 19.4 mmol/L (21-32); COR CA(FOR HYPOALB) 10.1 mg/dL (8.5-10.1); CREATININE 1.45 mg/dL (0.55-1.02); TOTAL PROTEIN 6.8 g/dL (6.4-8.2)
[2020-01-11 07:19] LABS: PLATELET MORPHOLOGY COMMENT NORMAL (NORMAL)
[2020-01-11] MEDS ORDERED: PHARMACY CONSULT - VANCOMYCIN XX SCH (09:00)
[2020-01-11] MEDS ORDERED: SYNTHROID 125 mcg TAB PO SCH (09:00)
[2020-01-11] MEDS ORDERED: TYLENOL 325 MG TAB PO PRN (09:21)
[2020-01-11] MEDS ORDERED: NS 500 ML IV 500 ML IV ONE (09:21)
[2020-01-11] MEDS: HEMOCYTE-PLUS PO SCH (09:21)
[2020-01-11] MEDS: REQUIP PO SCH ×2 (09:22→20:37)
[2020-01-11] MEDS: K-DUR TAB 20 MEQ PO PRN (09:24)
[2020-01-11] MEDS: SEROquel TAB 25 mg PO SCH ×2 (09:29→17:58)
[2020-01-11] MEDS: PROTONIX TAB 40 MG PO SCH ×2 (09:29→20:37)
[2020-01-11] MEDS ORDERED: SOLU-Medrol 125 MG VIAL IVP ONE (10:13)
[2020-01-11] MEDS: DUONEB 0.5 MG/3 MG (3 mL) NEB SCH ×4 (10:21→17:34)
--- NOTE | 2020-01-11 10:27 | PCM.PROG ---
Progress Note Progress Note for Day of Date of Exam: 01/11/20 Subjective Subjective: Patient seen at bedside, no acute overnight events. Sister present and states patient slept a little bit. She reports wheezing since yesterday evening. [facility] show MRSA. She was started on IV vanc and zosyn yesterday, repeat blood cx pending. She had a Tmax of 100.7. She remains on Cardizem drip at 15. Labs: Hgb 7.1 WBC: 14.7 Na:155 K:3.8 BUN/Cr: 22/1.45 CXR: no acute process, no consolidation/infiltrates noted Plan: Will transfuse 2 units PRBCs, give one dose of solumedrol, add duonebs QID. Titrate Cardizem as tolerated to keep HR 90-110, transition to PO tomorrow. Will continue Vanc, DC zosyn. ECHO tomorrow to rule out vegetations due to MRSA bacteremia. Follow cultures and AM labs. Switch diet to thickened liquids. Past Medical Family Social History Past Med/Fam/Surg Hx: No changes since H&P Allergies: Allergies fluoxetine [From Prozac] Allergy (Verified 01/22/19 14:06) haloperidol [From Haldol] Allergy (Verified 01/23/19 17:38) Review of Systems ROS: No change since H&P Vital Signs and I&O's Vital Signs: Temperature 97.7 F Pulse Rate [Left] 103 Pulse Rate 123 Respiratory Rate 22 Blood Pressure [Left Calf] 109/72 Blood Pressure [Left Arm] 127/63 Blood Pressure 135/99 O2 Sat by Pulse Oximetry 98 Intake and Output: Intake & Output 01/08/20 01/09/20 01/10/20 01/11/20 23:59 23:59 23:59 23:59 Intake Total 1375 / 1375 4021 / 4021 547 / 547 Balance 1375 / 1375 4021 / 4021 547 / 547 Physical Exam Oriented: Not Oriented and Unable to test Eyes: Normal Nose: Normal Throat: Dry Respiratory: Generalized, Diminished and Wheezes Cardiovascular: Tachycardia and Irregular Auscultation: Bowel Sounds: Normal Tenderness: Normal Skin: Decreased Turgur Psychiatric: Agitation Mood Description: Calm Affect: Quiet Speech Pattern: Unclear and Inappropriate Laboratory and Diagnostics Result Diagrams: 01/11/20 05:54 01/11/20 05:54 Labs: Laboratory WBC 14.7 X10^3/uL (3.6-10.0) H 01/11/20 05:54 RBC 2.24 X10^6/uL (3.5-5.4) L 01/11/20 05:54 Hgb 7.1 g/dL (12.0-16.0) L 01/11/20 05:54 Hct 22.7 % (36.0-47.0) L 01/11/20 05:54 MCV 101.6 fL (80.0-100.0) H 01/11/20 05:54 MCH 31.8 pg (27.0-34.0) 01/11/20 05:54 MCHC 31.3 g/dL (33.0-35.0) L 01/11/20 05:54 RDW 15.6 % (11.6-16.5) 01/11/20 05:54 Plt Count 294 X10^3/uL (150.0-450.0) 01/11/20 05:54 Plt Count Comment Adequate (ADEQUATE) 01/11/20 05:54 MPV 7.8 fL (7.4-11.0) 01/11/20 05:54 Neut % (Auto) 84.9 % (42.0-75.0) H 01/11/20 05:54 Lymph % (Auto) 10.2 % (21.0-51.0) L 01/11/20 05:54 [place] % (Auto) 3.3 % (0.0-13.0) 01/11/20 05:54 Eos % (Auto) 1.1 % (0.9-2.9) 01/11/20 05:54 Baso % (Auto) 0.5 % (0.2-1.0) 01/11/20 05:54 Neut # (Auto) 12.4 x10^3/uL (2.2-4.8) H 01/11/20 05:54 Lymph # (Auto) 1.5 X10^3/uL (1.3-2.9) 01/11/20 05:54 [place] # (Auto) 0.5 x10^3/uL (0.3-0.8) 01/11/20 05:54 Eos # (Auto) 0.2 x10^3/uL (0.0-0.2) 01/11/20 05:54 Baso # (Auto) 0.1 X10^3/uL (0.0-0.1) 01/11/20 05:54 Absolute Nucleated RBC 0.1 /100WBC 01/11/20 05:54 Plt Morphology Comment Normal (NORMAL) 01/11/20 05:54 RBC Morphology Normal (NORMAL) 01/11/20 05:54 Sodium 153 mmol/L (136-145) H* 01/11/20 05:54 Corrected Sodium 155 mmol/L (136-145) H 01/11/20 05:54 Potassium 3.8 mmol/L (3.5-5.1) 01/11/20 05:54 Chloride 122 mmol/L (98-107) H* 01/11/20 05:54 Carbon Dioxide 19.4 mmol/L (21-32) L 01/11/20 05:54 BUN 22 mg/dL (7-18) H 01/11/20 05:54 Creatinine 1.45 mg/dL (0.55-1.02) H 01/11/20 05:54 Est GFR (MDRD) Af Amer 45 (>60) L 01/11/20 05:54 Est GFR (MDRD) Non-Af 37 (>60) L 01/11/20 05:54 Glucose 190 mg/dL (65-99) H 01/11/20 05:54 Calcium 8.1 mg/dL (8.5-10.1) L 01/11/20 05:54 Corrected Calcium 10.1 mg/dL (8.5-10.1) 01/11/20 05:54 Magnesium 1.8 mg/dL (1.7-2.9) 01/10/20 08:49 Total Bilirubin 0.30 mg/dL (0.2-1.0) 01/11/20 05:54 AST 28 Units/L (15-37) 01/11/20 05:54 ALT 38 Units/L (12-78) 01/11/20 05:54 Alkaline Phosphatase 75 Units/L (46-116) 01/11/20 05:54 Creatine Kinase 22 Units/L (26-192) L 01/09/20 10:50 CK-MB (CK-2) < 1.0 ng/mL (0-4.0) 01/09/20 10:50 CK/CKMB % Calc 4.6 % (<4) 01/09/20 10:50 Troponin I 0.24 ng/mL (0-1.5) 01/09/20 10:50 Total Protein 6.8 g/dL (6.4-8.2) 01/11/20 05:54 Albumin 1.5 g/dL (3.4-5.0) L 01/11/20 05:54 Globulin 5.3 g/dL (2.5-4.5) H 01/11/20 05:54 Albumin/Globulin Ratio 0.3 Ratio (1.1-2.1) L 01/11/20 05:54 Plan (1) Atrial fibrillation with rapid ventricular response: Status: Acute (2) Hypernatremia: Status: Acute (3) Anemia: Status: Acute Qualifiers: Anemia type: unspecified type Qualified Code(s): D64.9 - Anemia, unspecified (4) Hypokalemia: Status: Acute (5) Altered mental status: Status: Acute Qualifiers: Altered mental status type: disorientation Qualified Code(s): R41.0 - Disorientation, unspecified (6) CKD (chronic kidney disease), stage III: Status: Chronic Qualifiers: Chronic kidney disease stage 3 subtype: unspecified whether 3a or 3b Qualified Code(s): N18.30 - Chronic kidney disease, stage 3 unspecified (7) Alzheimer's dementia: Status: Acute Qualifiers: Alzheimer's disease onset: unspecified onset Dementia behavioral disturbance: with behavioral disturbance Qualified Code(s): G30.9 - Alzheimer's disease, unspecified; F02.81 - Dementia in other diseases classified elsewhere with behavioral disturbance
[2020-01-11] MEDS: K-RIDER 10 MEQ/NS 100 ML 10 MEQ/100 ML BAG IV SCH ×2 (11:27→22:09)
[2020-01-11] MEDS: D5W 1000 ML IV 1,000 ML IV SCH ×2 (12:41→17:14)
[2020-01-11] MEDS ORDERED: CARDIZEM INJ 125 MG VIAL ONE (14:09)
[2020-01-11] MEDS ORDERED: SOLU-Medrol 125 MG VIAL ONE (14:17)
[2020-01-11] MEDS ORDERED: NS IV SCH (17:00)
[2020-01-11] MEDS ORDERED: VANCOMYCIN HCL IV SCH (17:00)
[2020-01-11] MEDS ORDERED: LEXAPRO ONE (19:08)
[2020-01-11] MEDS: DESYREL PO SCH (20:37)
[2020-01-11] MEDS: ZOCOR TAB 20 MG PO SCH (20:37)
[2020-01-11] MEDS: ULTRAM PO PRN (20:38)
[2020-01-11] MEDS: LEXAPRO PO SCH (20:38)
[2020-01-11] MEDS: ZYLOPRIM PO SCH (20:38)
[2020-01-12] MEDS: DUONEB 0.5 MG/3 MG (3 mL) NEB SCH ×2 (00:23→06:23)
[2020-01-12] MEDS: D5W 1000 ML IV 1,000 ML IV SCH ×2 (05:58→22:30)
[2020-01-12 06:39] LABS: BASOPHILS % (AUTO) 0.1 % (0.2-1.0); HEMATOCRIT 21.5 % (36.0-47.0); LYMPHOCYTES # (AUTO) 0.7 X10^3/uL (1.3-2.9); LYMPHOCYTES % (AUTO) 5.7 % (21.0-51.0); MEAN CORPUSCULAR HEMOGLOBIN 31.9 pg (27.0-34.0); MEAN CORPUSCULAR HGB CONC 32.1 g/dL (33.0-35.0); MEAN CORPUSCULAR VOLUME 99.3 fL (80.0-100.0); MEAN PLATELET VOLUME 7.7 fL (7.4-11.0); MONOCYTES # (AUTO) 0.2 x10^3/uL (0.3-0.8); MONOCYTES % (AUTO) 1.3 % (0.0-13.0); NEUTROPHILS # (AUTO) 11.8 x10^3/uL (2.2-4.8); NEUTROPHILS % (AUTO) 92.9 % (42.0-75.0); PLATELET COUNT 260 X10^3/uL (150.0-450.0); RED BLOOD COUNT 2.16 X10^6/uL (3.5-5.4); RED CELL DISTRIBUTION WIDTH 15.2 % (11.6-16.5); WHITE BLOOD COUNT 12.7 X10^3/uL (3.6-10.0)
[2020-01-12 06:42] LABS: ALBUMIN 1.5 g/dL (3.4-5.0); CALCIUM 8.1 mg/dL (8.5-10.1); CARBON DIOXIDE 17.5 mmol/L (21-32); COR CA(FOR HYPOALB) 10.1 mg/dL (8.5-10.1); CREATININE 1.68 mg/dL (0.55-1.02); MAGNESIUM 2.2 mg/dL (1.7-2.9)
[2020-01-12 07:03] LABS: HEMOGLOBIN 6.9 g/dL (12.0-16.0)
[2020-01-12 07:22] LABS: BAND NEUTROPHILS % 3 % (0-10)
[2020-01-12 07:23] LABS: HYPOCHROMASIA SLIGHT; PLATELET MORPHOLOGY COMMENT NORMAL (NORMAL)
[2020-01-12] MEDS ORDERED: VERSED 100 MG in NS 100 ML IV 80 ML IV PRN ×3 (09:42→20:00)
[2020-01-12] MEDS ORDERED: MORPHINE SULFATE PCA 30 MG IVP PRN ×3 (09:42→20:00)
--- NOTE | 2020-01-12 10:28 | PCM.PROG ---
Progress Note - Progress Note for Day of Date of Exam: 01/12/20 - Subjective Subjective: WAS ADMITTED ON 01/08 DUE TO A-FIB WITH RVR, HYPERNATREMIA, HYPOKALEMIA, AND ACUTE BRONCHITIS. SHE IS A RESIDENT OF [facility]. PATIENT IS ADMITTED OFTEN DUE TO HYPERNATREMIA. SHE HAS BEEN RECEIVING D5W TWICE A WEEK AT THE [facility]. SHE HAS A HISTORY OF SEVERE AMY NTIA. INITIALLY, PATIENT WAS NOTED WITH AGITATION, HOWEVER, SHE IS LYING IN BED WITH EYES CLOSED ON MORNING ROUNDS AND IS DIFFICULT TO AROUSE. SHE DOES MOAN TO PAINFUL STIMULI. THE [facility] REMOVER PHYSICIAN HAD ORDERED FOR PATIENT TO BE TRANSFUSED WITH TWO UNITS OF PRBC YESTERDAY DUE TO ANEMIA, HOWEVER, FAMILY REFUSED TRANSFUSION. PATIENT HAS NOT BEEN EATING WELL. SHE WAS ON A CARDIZEM DRIP, HOWEVER, DRIP HAD BEEN TURNED OFF DUE TO HR REMAINING IN THE 60s-70s. ON EXAMINATION TODAY, HEART IS REGULAR IN RATE AND RHYTHM. BILATERAL LUNGS ARE NOTED WITH WHEEZING, DIMINISHED LUNG SOUNDS THROUGHOUT. ABDOMEN ROUND, SOFT, AND NOTED WITH DECREASED BOWEL SOUNDS IN ALL QUADRANTS. HER VITALS THIS MORNING ARE: 98.7-72-20-98%-145/68. LABS WERE OBTAINED. ABNORMAL LAB VALUES INCLUDE THE FOLLOWING: WBC 12.7, RBC 2.16, HGB 6.9, HCT 21.5, SODIUM 150, CHLORIDE 114, CARBON DIOXIDE 17.5, BUN 28, CREATININE 1.68, GLUCOSE 314, CALCIUM 8.1, ALBUMIN 1.5, GLOBULIN 5.5. WE SPOKE WITH FAMILY REGARDING PATIENTS CONDITION. FAMILY WISHES FOR PATIENT TO BE PLACED ON COMFORT MEASURES AT THIS TIME AND TO DISCONTINUE OTHER TREATMENTS. WE WILL DISCONTINUE ALL MEDICATIONS AT THIS TIME, WITH THE EXCEPTION OF ADDING VERSED DRIP AT 2MG/HR AND MORPHINE DRIP AT 2MG/HR. OTHERWISE, WE WILL CONTINUE TO MONITOR AND MAKE ADJUSTMENTS NECESSARY. - Past Medical Family Social History Past Med/Fam/Surg Hx: No changes since H&P Allergies: Allergies fluoxetine [From Prozac] Allergy (Verified 01/22/19 14:06) haloperidol [From Haldol] Allergy (Verified 01/23/19 17:38) - Review of Systems ROS: No change since H&P - Vital Signs and I&O's Vital Signs: Temperature 98.7 F Pulse Rate [Left] 72 Pulse Rate 68 Respiratory Rate 20 Blood Pressure [Left Calf] 145/68 Blood Pressure [Left Arm] 127/63 Blood Pressure 135/99 O2 Sat by Pulse Oximetry 100 Intake and Output: Intake & Output 01/09/20 01/10/20 01/11/20 01/12/20 11:59 11:59 11:59 11:59 Intake Total 2805 / 2805 3138 / 3138 2347.5 / 2347.5 Balance 2805 / 2805 3138 / 3138 2347.5 / 2347.5 - Physical Exam Oriented: Not Oriented, Unable to test Eyes: Normal Nose: Normal Throat: Dry Respiratory: Generalized, Diminished, Wheezes Cardiovascular: Tachycardia, Irregular Auscultation: Bowel Sounds: Normal Palpation: Normal Tenderness: Normal Skin: Decreased Turgur Musculoskeletal: Normal Psychiatric: Other (DECREASED RESPONSIVENESS ) Mood Description: Flat Affect: Flat Speech Pattern: Inappropriate, Delayed - Laboratory and Diagnostics Result Diagrams: 01/12/20 06:09 01/12/20 06:09 Labs: Laboratory WBC 12.7 X10^3/uL (3.6-10.0) H 01/12/20 06:09 RBC 2.16 X10^6/uL (3.5-5.4) L 01/12/20 06:09 Hgb 6.9 g/dL (12.0-16.0) L* 01/12/20 06:09 Hct 21.5 % (36.0-47.0) L 01/12/20 06:09 MCV 99.3 fL (80.0-100.0) 01/12/20 06:09 MCH 31.9 pg (27.0-34.0) 01/12/20 06:09 MCHC 32.1 g/dL (33.0-35.0) L 01/12/20 06:09 RDW 15.2 % (11.6-16.5) 01/12/20 06:09 Plt Count 260 X10^3/uL (150.0-450.0) 01/12/20 06:09 Plt Count Comment Adequate (ADEQUATE) 01/12/20 06:09 MPV 7.7 fL (7.4-11.0) 01/12/20 06:09 Neut % (Auto) 92.9 % (42.0-75.0) H 01/12/20 06:09 Lymph % (Auto) 5.7 % (21.0-51.0) L 01/12/20 06:09 [place] % (Auto) 1.3 % (0.0-13.0) 01/12/20 06:09 Eos % (Auto) 0.0 % (0.9-2.9) L 01/12/20 06:09 Baso % (Auto) 0.1 % (0.2-1.0) L 01/12/20 06:09 Neut # (Auto) 11.8 x10^3/uL (2.2-4.8) H 01/12/20 06:09 Lymph # (Auto) 0.7 X10^3/uL (1.3-2.9) L 01/12/20 06:09 [place] # (Auto) 0.2 x10^3/uL (0.3-0.8) L 01/12/20 06:09 Eos # (Auto) 0.0 x10^3/uL (0.0-0.2) 01/12/20 06:09 Baso # (Auto) 0.0 X10^3/uL (0.0-0.1) 01/12/20 06:09 Absolute Nucleated RBC 0.1 /100WBC 01/12/20 06:09 Total Counted 100 01/12/20 06:09 Neutrophils % (Manual) 89 % (39-76) H 01/12/20 06:09 Band Neutrophils % 3 % (0-10) 01/12/20 06:09 Lymphocytes % (Manual) 8 % (13-43) L 01/12/20 06:09 Plt Morphology Comment Normal (NORMAL) 01/12/20 06:09 RBC Morphology Abnormal (NORMAL) A 01/12/20 06:09 Hypochromasia Slight A 01/12/20 06:09 Sodium 145 mmol/L (136-145) 01/12/20 06:09 Corrected Sodium 150 mmol/L (136-145) H 01/12/20 06:09 Potassium 4.1 mmol/L (3.5-5.1) 01/12/20 06:09 Chloride 114 mmol/L (98-107) H 01/12/20 06:09 Carbon Dioxide 17.5 mmol/L (21-32) L 01/12/20 06:09 BUN 28 mg/dL (7-18) H 01/12/20 06:09 Creatinine 1.68 mg/dL (0.55-1.02) H 01/12/20 06:09 Est GFR (MDRD) Af Amer 38 (>60) L 01/12/20 06:09 Est GFR (MDRD) Non-Af 31 (>60) L 01/12/20 06:09 Glucose 314 mg/dL (65-99) H 01/12/20 06:09 Calcium 8.1 mg/dL (8.5-10.1) L 01/12/20 06:09 Corrected Calcium 10.1 mg/dL (8.5-10.1) 01/12/20 06:09 Magnesium 2.2 mg/dL (1.7-2.9) 01/12/20 06:09 Total Bilirubin 0.20 mg/dL (0.2-1.0) 01/12/20 06:09 AST 20 Units/L (15-37) 01/12/20 06:09 ALT 38 Units/L (12-78) 01/12/20 06:09 Alkaline Phosphatase 79 Units/L (46-116) 01/12/20 06:09 Creatine Kinase 22 Units/L (26-192) L 01/09/20 10:50 CK-MB (CK-2) < 1.0 ng/mL (0-4.0) 01/09/20 10:50 CK/CKMB % Calc 4.6 % (<4) 01/09/20 10:50 Troponin I 0.24 ng/mL (0-1.5) 01/09/20 10:50 Total Protein 7.0 g/dL (6.4-8.2) 01/12/20 06:09 Albumin 1.5 g/dL (3.4-5.0) L 01/12/20 06:09 Globulin 5.5 g/dL (2.5-4.5) H 01/12/20 06:09 Albumin/Globulin Ratio 0.3 Ratio (1.1-2.1) L 01/12/20 06:09 Blood Type A NEGATIVE 01/11/20 09:35 Antibody Screen Negative 01/11/20 09:35 Crossmatch See Detail 01/11/20 09:35 - Plan (1) Atrial fibrillation with rapid ventricular response Status: Acute Plan: COMFORT MEASURES WITH VERSED DRIP AT 2MG/HR AND MORPHINE DRIP AT 2 MG/HR (2) Acute bronchitis Status: Acute Qualifiers: Bronchitis organism: unspecified organism Qualified Code(s): J20.9 - Acute bronchitis, unspecified (3) Hypernatremia Status: Acute (4) Hypokalemia Status: Acute (5) Anemia Status: Acute Qualifiers: Anemia type: unspecified type (6) Alzheimer's dementia Status: Chronic Qualifiers: Alzheimer's disease onset: unspecified onset Dementia behavioral disturbance: without behavioral disturbance Qualified Code(s): G30.9 - Alzheimer's disease, unspecified; F02.80 - Dementia in other diseases classified elsewhere without behavioral disturbance (7) CKD (chronic kidney disease), stage III Status: Chronic Qualifiers:
[2020-01-13] MEDS: MORPHINE SULFATE PCA 30 MG IVP PRN ×3 (01:01→10:47)
[2020-01-13] MEDS ORDERED: VERSED ONE (01:10)
[2020-01-13] MEDS ORDERED: NS 100 ML IV 100 ML IV ONE (01:10)
[2020-01-13] MEDS: VERSED 100 MG in NS 100 ML IV 80 ML IV PRN ×2 (02:37→12:40)
[2020-01-13] MEDS: D5W 1000 ML IV 1,000 ML IV SCH (03:53)
[2020-01-13 10:59] VITALS: BP 90/40
[2020-01-13] MEDS ORDERED: PHARMACY COMMENT IV NR (16:30)
== END 2020-01-13 15:55 | disposition expired | DRG 309 ==
LOC: ER 10:04 → MED/SURG 13:45
PROVIDERS: ADMIT Internal Medicine; ATTEND Internal Medicine
DX: I25.10 Atherosclerotic heart disease of native coronary artery without angina pectoris; R41.0 Disorientation, unspecified; E78.2 Mixed hyperlipidemia; I46.9 Cardiac arrest, cause unspecified; E87.6 Hypokalemia; B95.62 Methicillin resistant Staphylococcus aureus infection as the cause of diseases classified elsewhere; N18.30 Chronic kidney disease, stage 3 unspecified; F02.81 Dementia in other diseases classified elsewhere, unspecified severity, with behavioral disturbance; J20.8 Acute bronchitis due to other specified organisms; G30.9 Alzheimer's disease, unspecified; E87.0 Hyperosmolality and hypernatremia; I48.91 Unspecified atrial fibrillation; R94.31 Abnormal electrocardiogram [ECG] [EKG]